=== PATIENT | female | born 1950 | race African-American/Black ===

== ENCOUNTER 2018-11-02 10:18 | Inpatient (IN) | payer OTHER ==
[2018-11-02 10:42] VITALS: BMI 30.5
--- NOTE | 2018-11-02 13:51 | HP ---
CIWA Score Nausea/Vomitin-No Nausea/No Vomiting Muscle Tremors: 2 Anxiety: 3 Agitation: 2 Paroxysmal Sweats: 2 Orientation: 0-Oriented Tacttile Disturbances: 1-Very Mild Itch/Numbness Auditory Disturbances: 2-Mild Harshness/Frighten Visual Disturbances: 0-None Headache: 0-None Present CIWA-Ar Total Score: 12 - Admission Criteria [facility] Guidelines: Admission for Medically Managed Detox: Requires at least one of the followin. CIWA greater than 12 2. Seizures within the past 24 hours 3. Delirium tremens within the past 24 hours 4. Hallucinations within the past 24 hours 5. Acute intervention needed for co occurring medical disorder 6. Acute intervention needed for co occurring psychiatric disorder 7. Severe withdrawal that cannot be handled at a lower level of care (continued vomiting, continued diarrhea, abnormal vital signs) requiring intravenous medication and/or fluids 8. Patient presents the following: CIWA greater than 12 Admission Criteria Met: Admission criteria met Admission ROS [facility] Chief Complaint: alcohol detox Allergies/Adverse Reactions: Allergies Allergy/AdvReac Type Severity Reaction Status Date / Time tomato Allergy Severe Rash Verified 11/02/18 13:11 No Known Drug Allergies Allergy Verified 11/02/18 13:11 TOMATO SAUCE Allergy Severe Hives Uncoded 11/02/18 13:11 History of Present Illness: 68 yo female with hx of chronic alcohol and cocaine dependence is here seeking detox. Last detox [facility] 10/03/18 10/06/18 and rehab left AMA 10/06/18 -10/09/18, reports relapsed soon after discharge. Denies hx of seizures or blackouts. PMHX: HDL, DM II, Hep C and Asthma. Psych: depression Denies suicidal / homicidal ideation or hx of suicide attempt Exam Limitations: No Limitations - Ebola screening Have you traveled outside of the country in the last 21 days: No Have you had contact with anyone from an Ebola affected area: No Have you been sick,other than usual withdrawal symptoms: No Do you have a fever: No - Review of Systems Constitutional: Night Sweats, Weakness, Unintentional Wgt. Loss (5 lb) EENT: reports: Ear Pain (right ear x one month) Respiratory: reports: No Symptoms reported Cardiac: reports: No Symptoms Reported GI: reports: Poor Appetite, Poor Fluid Intake, Indigestion : reports: Urgency Musculoskeletal: reports: Back Pain Integumentary: reports: No Symptoms Reported Neuro: reports: No Symptoms reported Endocrine: reports: Increased Urine Hematology: reports: See HPI Psychiatric: reports: Orientated x3, Anxious Other Systems: Reviewed and Negative Patient History - Patient Medical History Hx Anemia: Yes Hx Asthma: Yes Hx Chronic Obstructive Pulmonary Disease (COPD): No Hx Cancer: No Hx Cardiac Disorders: No Hx Congestive Heart Failure: No Hx Hypertension: No Hx Hypercholesterolemia: Yes Hx Pacemaker: No HX Cerebrovascular Accident: No Hx Seizures: No Hx Dementia: No Hx Diabetes: No Hx Gastrointestinal Disorders: Yes (acid reflux) Hx Liver Disease: Yes (Hep C ) Hx Genitourinary Disorders: No Hx Sexually Transmitted Disorders: No Hx Renal Disease (ESRD): No Hx Thyroid Disease: No Hx Human Immunodeficiency Virus (HIV): Yes Hx Hepatitis C: Yes (TX'ED) Hx Depression: Yes Hx Suicide Attempt: No Hx Bipolar Disorder: No Hx Schizophrenia: No - Patient Surgical History Past Surgical History: Yes Hx Neurologic Surgery: No Hx Cataract Extraction: No Hx Cardiac Surgery: No Hx Lung Surgery: No Hx Breast Surgery: No Hx Breast Biopsy: No Hx Abdominal Surgery: No Hx Appendectomy: No Hx Cholecystectomy: No Hx Genitourinary Surgery: No Hx Section: No Hx Orthopedic Surgery: Yes (Sx on right ankle fx) Anesthesia Reaction: No - PPD History Previous Implant?: Yes Documented Results: Negative w/proof Implanted On Prior [facility] Admission?: Yes Date: 09/01/18 Results: 0 mm - Reproductive History Patient : No - Smoking Cessation Smoking history: Never smoked Have you smoked in the past 12 months: No Hx Chewing Tobacco Use: No - Substance & Tx. History Hx Alcohol Use: Yes Hx Substance Use: Yes Substance Use Type: Alcohol Hx Substance Use Treatment: Yes ( Last detox [facility] 10/03/18 10/06/18 and rehab left AMA 10/06/18 -10/09/18) - Substances Abused Alcohol Route: Oral Frequency: Daily Amount used: fifth vodka Age of first use: 15 Date of Last Use: 11/02/18 Cocaine Route: Inhalation Frequency: 1-2 times per week Amount used: $25 Age of first use: 26 Date of Last Use: 10/28/18 Family Disease History - Family Disease History Family Disease History: Diabetes: Father ( ), Mother ( ) Admission Physical Exam [facility] - Vital Signs Vital Signs: Vital Signs - 24 hr 11/02/18 10:40 Temperature 98.0 F Pulse Rate 76 Respiratory 18 Rate Blood Pressure 113/73 - Physical General Appearance: Yes: Disheveled, Obese, Anxious HEENTM: Yes: EOMI, Hearing grossly Normal, Normal ENT Inspection, Normocephalic , Normal Voice, SASHA, Pharynx Normal, Tm's normal Respiratory: Yes: Chest Non-Tender, Lungs Clear, Normal Breath Sounds, No Respiratory Distress, No Accessory Muscle Use Neck: Yes: Within Normal Limits Breast: Yes: Breast Exam Deferred Cardiology: Yes: Regular Rhythm, Regular Rate Abdominal: Yes: Normal Bowel Sounds, Non Tender, Flat, Soft Genitourinary: Yes: Within Normal Limits Back: Yes: Normal Inspection Musculoskeletal: Yes: full range of Motion, Gait Steady, Pelvis Stable Extremities: Yes: Normal Capillary Refill, Normal Inspection, Normal Range of Motion 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: Yes: mule operator II-XII NML intact, Fully Oriented, Alert, Motor Strength 5/5, Depressed Affect Integumentary: Yes: Normal Color, Warm, Diaphoresis Lymphatic: Yes: Within Normal Limits - Diagnostic (1) Alcohol dependence with withdrawal Current Visit: Yes Status: Acute Qualifiers: Complication of substance-induced condition: uncomplicated Qualified Code(s ): F10.230 - Alcohol dependence with withdrawal, uncomplicated (2) Asthma Current Visit: Yes Status: Chronic Qualifiers: Asthma severity: mild Asthma persistence: intermittent Asthma complication type: uncomplicated Qualified Code(s): J45.20 - Mild intermittent asthma, uncomplicated (3) GERD (gastroesophageal reflux disease) Current Visit: Yes Status: Chronic Qualifiers: Esophagitis presence: without esophagitis Qualified Code(s): K21.9 - Gastro -esophageal reflux disease without esophagitis (4) HIV (human immunodeficiency virus infection) Current Visit: Yes Status: Chronic Comment: non compliant with HIV medication (5) Hepatitis C Current Visit: Yes Status: Chronic Qualifiers: Viral hepatitis chronicity: chronic Hepatic coma status: without hepatic coma Qualified Code(s): B18.2 - Chronic viral hepatitis C (6) History of prediabetes Current Visit: Yes Status: Chronic (7) Hypertension Current Visit: Yes Status: Chronic Qualifiers: Hypertension type: essential hypertension Qualified Code(s): I10 - Essential (primary) hypertension (8) Obese Current Visit: Yes Status: Chronic Qualifiers: Obesity classification: adult class 1 (BMI 30 - 34.9) Body mass index: BMI 31.0-31.9 Cleared for Admission [facility] - Detox or Rehab [facility] Level of Care: Medically Managed Detox Regimen/Protocol: Librium [facility] Breath Alcohol Content Breath Alcohol Content: 0.036 Urine Pregancy Test - Result Urine Test Results: Negative - NO line present Urine Drug Screen - Results Drug Screen Negative: No Urine Drug Screen Results: JUNE-Cocaine, BZO-Benzodiazepines Inpatient Rehab Admission - Rehab Decision to Admit Inpatient rehab admission?: No
[2018-11-02] MEDS ORDERED: MENTHOL/PHENOL 1 EACH UD MM PRN (14:00)
[2018-11-02] MEDS ORDERED: IBUPROFEN 400 MG TABLET (FP) PO PRN (14:00)
[2018-11-02] MEDS ORDERED: METHOCARBAMOL 500 MG TABLET PO PRN (14:00)
[2018-11-02] MEDS ORDERED: BISMUTH SUBSALICYLATE 262 MG/15 ML BTL PO PRN (14:00)
[2018-11-02] MEDS ORDERED: ACETAMINOPHEN 325 MG TABLET (FP) PO PRN ×2 (14:00)
[2018-11-02] MEDS ORDERED: hydrOXYzine PAMOATE 25 MG CAPSULE (FP) PO PRN (14:00)
[2018-11-02] MEDS ORDERED: MAGNESIUM HYDROX 2400MG/30ML ORAL SUSPENSION 30 ML CUP PO PRN (14:00)
[2018-11-02] MEDS ORDERED: MAGNESIUM CITRATE 300 ML BOTTLE PO PRN (14:00)
[2018-11-02] MEDS ORDERED: ALBUTEROL SO4 8 GM HFA INHALER IH PRN (14:02)
[2018-11-02] MEDS: chlordiazePOXIDE HCL 25 MG CAPSULE PO PRN (16:38)
[2018-11-02] MEDS: IBUPROFEN 400 MG TABLET (FP) PO PRN (16:38)
[2018-11-02] MEDS: chlordiazePOXIDE HCL 25 MG CAPSULE PO SCH (23:30)
[2018-11-02] MEDS: THIAMINE HCL 100 MG TABLET (FP) PO SCH (23:30)
[2018-11-02 23:47] LABS: EPI CELLS 3.6 /HPF (0-5); HYALINE CASTS 1 /hpf (0-8); URINE APPEARANCE CLEAR; URINE BACTERIA 151.578 /hpf (NEGATIVE); URINE BILIRUBIN NEGATIVE (<2.0 mg/dL); URINE COLOR YELLOW; URINE GLUCOSE (UA) NEGATIVE (NEGATIVE); URINE KETONE NEGATIVE (NEGATIVE); URINE LEUK ESTERASE 1+ (NEGATIVE); URINE NITRITE NEGATIVE (NEGATIVE); URINE PROTEIN NEGATIVE (NEGATIVE); URINE RBC 1 /hpf (0-4); URINE UROBILINOGEN 0.2 mg/dL (0.2-1.0); URINE WBC 1 /hpf (0-5)
[2018-11-03] MEDS: chlordiazePOXIDE HCL 25 MG CAPSULE PO PRN (00:10)
[2018-11-03] MEDS: chlordiazePOXIDE HCL 25 MG CAPSULE PO SCH ×4 (06:00→22:22)
[2018-11-03] MEDS: IBUPROFEN 400 MG TABLET (FP) PO PRN ×2 (06:19→16:07)
[2018-11-03] MEDS: MAG HYDROX/AL HYDROX/SIMETH 30 ML UNIT-DOSE CUP PO PRN ×2 (09:31→16:07)
[2018-11-03] MEDS ORDERED: SULFAMETHOXAZOLE/TRIMETHOPRIM 800MG/160MG D.S. TABLET PO SCH (10:00)
[2018-11-03] MEDS: PANTOPRAZOLE 20 MG TABLET (FP) PO SCH (10:04)
[2018-11-03] MEDS: ASPIRIN 81 MG CHEWABLE TABLETS PO SCH (10:04)
[2018-11-03] MEDS: PRENATAL VITAMINS W/ FOLIC ACID TABLET (FP) PO SCH (10:04)
[2018-11-03 11:30] LABS: HEMATOCRIT 41.2 % (32.4-45.2); HEMOGLOBIN 14.1 GM/dL (10.7-15.3); MCH 34.1 pg (25.7-33.7); MCHC 34.3 g/dl (32.0-36.0); MEAN CELL VOLUME 99.3 fl (80-96); MEAN PLT VOLUME 9.5 fl (7.5-11.1); PLATELET COUNT 200 K/MM3 (134-434); RBC 4.15 M/mm3 (3.60-5.2); RDW 13.5 % (11.6-15.6); WHITE BLOOD COUNT 3.6 K/mm3 (4.0-10.0)
[2018-11-03 11:51] LABS: ALBUMIN 3.8 g/dl (3.4-5.0); ALK PHOS 94 U/L (45-117); ANION GAP 13 MMOL/L (8-16); BILIRUBIN,TOTAL 0.3 mg/dL (0.2-1); BLOOD UREA NITROGEN 14 mg/dL (7-18); CALCIUM 9.8 mg/dL (8.5-10.1); CHLORIDE 105 mmol/L (98-107); CO2 21 mmol/L (21-32); GLUCOSE,RANDOM 75 mg/dL (74-106); POTASSIUM 4.4 mmol/L (3.5-5.1); SGOT/AST 18 U/L (15-37); SGPT/ALT 14 U/L (13-61); SODIUM 139 mmol/L (136-145); TOT PROT 8.1 g/dl (6.4-8.2)
--- NOTE | 2018-11-03 12:21 | PN ---
[facility] CIWA - CIWA Score Nausea/Vomitin-No Nausea/No Vomiting Muscle Tremors: 1-None Visible, but [place] Anxiety: 1-Mildly Anxious Agitation: 1-Slight > Activity Paroxysmal Sweats: No Perspiration Orientation: 0-Oriented Tacttile Disturbances: 0-None Auditory Disturbances: 0-None Visual Disturbances: 0-None Headache: 2-Mild CIWA-Ar Total Score: 5 S Progress Note (SOAP) Subjective: pt states doing well with detox protocol. c/o R ear pain- says she was here last month and received a ear drop that helped her- did not f/u with PCP as an outpt. Says she has PCP at [facility]. HAs HIV but has not been in care for several months O: Vital Signs - 24 hr 11/02/18 11/02/18 11/02/18 15:16 17:57 21:30 Temperature 98.8 F 98.2 F 98.1 F Pulse Rate 138 H 129 H 110 H Respiratory 18 18 18 Rate Blood Pressure 119/89 96/73 109/74 11/03/18 11/03/18 11/03/18 03:30 06:36 09:46 Temperature 97.2 F L 97.7 F Pulse Rate 70 82 Respiratory 18 18 18 Rate Blood Pressure 101/54 L 79/50 L Laboratory Tests 11/02/18 11/03/18 11/03/18 22:00 06:00 06:00 WBC 3.6 L RBC 4.15 Hgb 14.1 Hct 41.2 MCV 99.3 H MCH 34.1 H MCHC 34.3 RDW 13.5 Plt Count 200 D MPV 9.5 Sodium 139 Potassium 4.4 Chloride 105 Carbon Dioxide 21 Anion Gap 13 BUN 14 Creatinine 1.0 Creat Clearance w eGFR 55.30 Random Glucose 75 Calcium 9.8 Total Bilirubin 0.3 AST 18 ALT 14 Alkaline Phosphatase 94 Total Protein 8.1 Albumin 3.8 Urine Color Yellow Urine Appearance Clear Urine pH 7.0 Ur Specific [place] 1.021 Urine Protein Negative Urine Glucose (UA) Negative Urine Ketones Negative Urine Blood Negative Urine Nitrite Negative Urine Bilirubin Negative Urine Urobilinogen 0.2 Ur Leukocyte Esterase 1+ Urine WBC (Auto) 1 Urine RBC (Auto) 1 Urine Casts (Auto) 1 U Epithel Cells (Auto) 3.6 Urine Bacteria (Auto) 151.578 RPR Titer 11/03/18 06:00 WBC RBC Hgb Hct MCV MCH MCHC RDW Plt Count MPV Sodium Potassium Chloride Carbon Dioxide Anion Gap BUN Creatinine Creat Clearance w eGFR Random Glucose Calcium Total Bilirubin AST ALT Alkaline Phosphatase Total Protein Albumin Urine Color Urine Appearance Urine pH Ur Specific [place] Urine Protein Urine Glucose (UA) Urine Ketones Urine Blood Urine Nitrite Urine Bilirubin Urine Urobilinogen Ur Leukocyte Esterase Urine WBC (Auto) Urine RBC (Auto) Urine Casts (Auto) U Epithel Cells (Auto) Urine Bacteria (Auto) RPR Titer Nonreactive R ear- TM not visualized, no drainage, no d/c, cerumen noted- no pain to tragal manipulation a/p continue detox protocol pt requesting ear drops- for ear discomfort f/u PCP for HIV treatment- d/w pt at length re this
--- NOTE | 2018-11-03 12:55 | CONSULT ---
[facility] Psychiatric Consult - Data Date of interview: 11/03/18 Admission source: [facility] Identifying data: Readmission to [facility] for this 68 y/o AA female self- referred for detoxification (alcohol). Interviewed on . Patient is , a mother of seven, domiciled, unemployed and supported on [employer] funds. Substance Abuse History: Confirmed by the patient in this interview. Details in current [facility] report : Smoking history: Never smoked. Have you smoked in the past 12 months: No. Hx Chewing Tobacco Use: No. Substance & Tx. History. Hx Alcohol Use: Yes. Hx Substance Use: Yes. Substance Use Type: Alcohol. Hx Substance Use Treatment: Yes ( Last detox [facility] 10/03/18 10/06/18 and rehab left [facility] 10/06/18 -10/09/18). - Substances Abused. Alcohol. Route: Oral. Frequency: Daily. Amount used: fifth vodka. Age of first use: 15. Date of Last Use: 11/02/18. Cocaine. Route: Inhalation. Frequency: 1-2 times per week. Amount used: $25. Age of first use: 26. Date of Last Use: 10/28/18 Medical History: HIV infection since 1993 (non compliant with ART medications), hepatitis C, bronchial asthma, GERD, diabetes mellitus, dyslipidemia, arthritis , anemia and history of fracture of left wrist (2016). Psychiatric History: In this interview, the patient denies history of psychiatric hospitalizations. She reports, though, that she was diagnosed with MDD, years ago, during incarceration. Used to be prescribed prozac + abilify. Chronically non-adherent to medications + [facility]PD care. No affiliation with mental health care providers. Contact with Psychiatry, in 2005, was triggered by the of one of her daughters (age 12). Ms Evans denies history of suicide attempts. Physical/Sexual Abuse/Trauma History: Patient denies. Additional Comment: Urine Drug Screen Results: JUNE-Cocaine, BZO- Benzodiazepines. Noted. Mental Status Exam - Mental Status Exam Alert and Oriented to: Time, Place, Person Cognitive Function: Good Patient Appearance: Well Groomed (overweight) Mood: Withdrawn, Apprehensive (mildly) Affect: Mood Congruent, Constricted Patient Behavior: Fatigued, Appropriate, Cooperative Speech Pattern: Clear, Appropriate Voice Loudness: Normal Thought Process: Goal Oriented Thought Disorder: Not Present Hallucinations: Denies (denies hallucinations at this time ; however, she reports diaz she hears the voices of evil spirits sometimes, at home, during alcohol intoxication ) Suicidal Ideation: Denies Homicidal Ideation: Denies Insight/Judgement: Poor Sleep: Poorly, Difficulty falling asleep Appetite: Good Muscle strength/Tone: Normal Gait/Station: Normal Psychiatric Findings - Problem List ([place] 1, 2,3) (1) Alcohol dependence with withdrawal Current Visit: Yes Status: Acute Qualifiers: Complication of substance-induced condition: uncomplicated Qualified Code(s ): F10.230 - Alcohol dependence with withdrawal, uncomplicated (2) Cocaine abuse Current Visit: Yes Status: Chronic (3) Substance induced mood disorder Current Visit: Yes Status: Chronic (4) History of depression Current Visit: Yes Status: Chronic (5) Insomnia Current Visit: Yes Status: Chronic - Initial Treatment Plan Initial Treatment Plan: Psychoeducation. Sleep hygiene. Detoxification. Insomnia is addressed with melatonin at bedtime. Relapse prevention : discussed with the patient. Willing to enlist in rehabilitation. Encouraged in that endeavor. Support. Motivational sessions. Observation.
[2018-11-03] MEDS: CARBAMIDE PEROXIDE 6.5% OTIC 15 ML BOTTLE AD PRN (13:41)
[2018-11-03] MEDS: MELATONIN 5 MG TABLETS PO PRN (22:22)
[2018-11-03] MEDS: THIAMINE HCL 100 MG TABLET (FP) PO SCH (22:22)
[2018-11-04] MEDS: chlordiazePOXIDE HCL 25 MG CAPSULE PO SCH ×3 (05:53→17:46)
--- NOTE | 2018-11-04 10:05 | PN ---
[facility] CIWA - CIWA Score Nausea/Vomitin-No Nausea/No Vomiting Muscle Tremors: 2 Anxiety: 2 Agitation: 2 Paroxysmal Sweats: 2 Orientation: 0-Oriented Tacttile Disturbances: 1-Very Mild Itch/Numbness Auditory Disturbances: 0-None Visual Disturbances: 0-None Headache: 0-None Present CIWA-Ar Total Score: 9 S Progress Note (SOAP) Subjective: c/o of back pain, interrupted sleep, chills Objective: 11/04/18 12:51 Vital Signs Temperature 97.2 F L 11/04/18 09:47 Pulse Rate 77 11/04/18 09:47 Respiratory Rate 18 11/04/18 09:47 Blood Pressure 93/59 L 11/04/18 09:47 O2 Sat by Pulse Oximetry (%) Laboratory Last Values WBC 3.6 K/mm3 (4.0-10.0) L 11/03/18 06:00 RBC 4.15 M/mm3 (3.60-5.2) 11/03/18 06:00 Hgb 14.1 GM/dL (10.7-15.3) 11/03/18 06:00 Hct 41.2 % (32.4-45.2) 11/03/18 06:00 MCV 99.3 fl (80-96) H 11/03/18 06:00 MCH 34.1 pg (25.7-33.7) H 11/03/18 06:00 MCHC 34.3 g/dl (32.0-36.0) 11/03/18 06:00 RDW 13.5 % (11.6-15.6) 11/03/18 06:00 Plt Count 200 K/MM3 (134-434) D 11/03/18 06:00 MPV 9.5 fl (7.5-11.1) 11/03/18 06:00 Sodium 139 mmol/L (136-145) 11/03/18 06:00 Potassium 4.4 mmol/L (3.5-5.1) 11/03/18 06:00 Chloride 105 mmol/L (98-107) 11/03/18 06:00 Carbon Dioxide 21 mmol/L (21-32) 11/03/18 06:00 Anion Gap 13 MMOL/L (8-16) 11/03/18 06:00 BUN 14 mg/dL (7-18) 11/03/18 06:00 Creatinine 1.0 mg/dL (0.55-1.3) 11/03/18 06:00 Creat Clearance w eGFR 55.30 (>60) 11/03/18 06:00 Random Glucose 75 mg/dL (74-106) 11/03/18 06:00 Calcium 9.8 mg/dL (8.5-10.1) 11/03/18 06:00 Total Bilirubin 0.3 mg/dL (0.2-1) 11/03/18 06:00 AST 18 U/L (15-37) 11/03/18 06:00 ALT 14 U/L (13-61) 11/03/18 06:00 Alkaline Phosphatase 94 U/L (45-117) 11/03/18 06:00 Total Protein 8.1 g/dl (6.4-8.2) 11/03/18 06:00 Albumin 3.8 g/dl (3.4-5.0) 11/03/18 06:00 Urine Color Yellow 11/02/18 22:00 Urine Appearance Clear 11/02/18 22:00 Urine pH 7.0 (5.0-8.0) 11/02/18 22:00 Ur Specific [place] 1.021 (1.010-1.035) 11/02/18 22:00 Urine Protein Negative (NEGATIVE) 11/02/18 22:00 Urine Glucose (UA) Negative (NEGATIVE) 11/02/18 22:00 Urine Ketones Negative (NEGATIVE) 11/02/18 22:00 Urine Blood Negative (NEGATIVE) 11/02/18 22:00 Urine Nitrite Negative (NEGATIVE) 11/02/18 22:00 Urine Bilirubin Negative (<2.0 mg/dL) 11/02/18 22:00 Urine Urobilinogen 0.2 mg/dL (0.2-1.0) 11/02/18 22:00 Ur Leukocyte Esterase 1+ (NEGATIVE) 11/02/18 22:00 Urine WBC (Auto) 1 /hpf (0-5) 11/02/18 22:00 Urine RBC (Auto) 1 /hpf (0-4) 11/02/18 22:00 Urine Casts (Auto) 1 /hpf (0-8) 11/02/18 22:00 U Epithel Cells (Auto) 3.6 /HPF (0-5) 11/02/18 22:00 Urine Bacteria (Auto) 151.578 /hpf (NEGATIVE) 11/02/18 22:00 RPR Titer Nonreactive (NONREACTIVE) 11/03/18 06:00 labs noted Aox3 no distress full ROM + back pain withdrawal sx continue detox increase po fluids continue to monitor
[2018-11-04] MEDS: ASPIRIN 81 MG CHEWABLE TABLETS PO SCH (10:38)
[2018-11-04] MEDS: PANTOPRAZOLE 20 MG TABLET (FP) PO SCH (10:38)
[2018-11-04] MEDS: PRENATAL VITAMINS W/ FOLIC ACID TABLET (FP) PO SCH (10:38)
[2018-11-04] MEDS: CARBAMIDE PEROXIDE 6.5% OTIC 15 ML BOTTLE AD PRN ×2 (10:39→22:25)
[2018-11-04] MEDS: MAG HYDROX/AL HYDROX/SIMETH 30 ML UNIT-DOSE CUP PO PRN (17:47)
[2018-11-04] MEDS: MELATONIN 5 MG TABLETS PO PRN (22:24)
[2018-11-04] MEDS: chlordiazePOXIDE HCL 10 MG CAPSULE PO SCH (22:24)
[2018-11-04] MEDS: THIAMINE HCL 100 MG TABLET (FP) PO SCH (22:24)
[2018-11-04] MEDS ORDERED: chlordiazePOXIDE HCL 10 MG CAPSULE PO PRN (23:00)
[2018-11-05] MEDS: IBUPROFEN 400 MG TABLET (FP) PO PRN (01:25)
[2018-11-05] MEDS: chlordiazePOXIDE HCL 10 MG CAPSULE PO SCH ×3 (05:34→17:10)
[2018-11-05] MEDS: CARBAMIDE PEROXIDE 6.5% OTIC 15 ML BOTTLE AD PRN (10:07)
[2018-11-05] MEDS: ASPIRIN 81 MG CHEWABLE TABLETS PO SCH (10:07)
[2018-11-05] MEDS: PANTOPRAZOLE 20 MG TABLET (FP) PO SCH (10:07)
[2018-11-05] MEDS: PRENATAL VITAMINS W/ FOLIC ACID TABLET (FP) PO SCH (10:08)
--- NOTE | 2018-11-05 12:10 | PN ---
[facility] CIWA - CIWA Score Nausea/Vomitin-No Nausea/No Vomiting Muscle Tremors: 1-None Visible, but [place] Anxiety: 0-No Anxiety, at Ease Agitation: 1-Slight > Activity Paroxysmal Sweats: No Perspiration Orientation: 1-Uncertain about Date Tacttile Disturbances: 0-None Auditory Disturbances: 0-None Visual Disturbances: 0-None Headache: 1-Very Mild CIWA-Ar Total Score: 4 S Progress Note (SOAP) Subjective: feeling better more energy up to day room social with peers tolerate food and fluid well Objective: 11/05/18 12:09 Vital Signs Temperature 98.1 F 11/05/18 09:31 Pulse Rate 67 11/05/18 11:25 Respiratory Rate 18 11/05/18 09:31 Blood Pressure 97/71 11/05/18 11:25 O2 Sat by Pulse Oximetry (%) Laboratory Last Values WBC 3.6 K/mm3 (4.0-10.0) L 11/03/18 06:00 RBC 4.15 M/mm3 (3.60-5.2) 11/03/18 06:00 Hgb 14.1 GM/dL (10.7-15.3) 11/03/18 06:00 Hct 41.2 % (32.4-45.2) 11/03/18 06:00 MCV 99.3 fl (80-96) H 11/03/18 06:00 MCH 34.1 pg (25.7-33.7) H 11/03/18 06:00 MCHC 34.3 g/dl (32.0-36.0) 11/03/18 06:00 RDW 13.5 % (11.6-15.6) 11/03/18 06:00 Plt Count 200 K/MM3 (134-434) D 11/03/18 06:00 MPV 9.5 fl (7.5-11.1) 11/03/18 06:00 Sodium 139 mmol/L (136-145) 11/03/18 06:00 Potassium 4.4 mmol/L (3.5-5.1) 11/03/18 06:00 Chloride 105 mmol/L (98-107) 11/03/18 06:00 Carbon Dioxide 21 mmol/L (21-32) 11/03/18 06:00 Anion Gap 13 MMOL/L (8-16) 11/03/18 06:00 BUN 14 mg/dL (7-18) 11/03/18 06:00 Creatinine 1.0 mg/dL (0.55-1.3) 11/03/18 06:00 Creat Clearance w eGFR 55.30 (>60) 11/03/18 06:00 Random Glucose 75 mg/dL (74-106) 11/03/18 06:00 Calcium 9.8 mg/dL (8.5-10.1) 11/03/18 06:00 Total Bilirubin 0.3 mg/dL (0.2-1) 11/03/18 06:00 AST 18 U/L (15-37) 11/03/18 06:00 ALT 14 U/L (13-61) 11/03/18 06:00 Alkaline Phosphatase 94 U/L (45-117) 11/03/18 06:00 Total Protein 8.1 g/dl (6.4-8.2) 11/03/18 06:00 Albumin 3.8 g/dl (3.4-5.0) 11/03/18 06:00 Urine Color Yellow 11/02/18 22:00 Urine Appearance Clear 11/02/18 22:00 Urine pH 7.0 (5.0-8.0) 11/02/18 22:00 Ur Specific [place] 1.021 (1.010-1.035) 11/02/18 22:00 Urine Protein Negative (NEGATIVE) 11/02/18 22:00 Urine Glucose (UA) Negative (NEGATIVE) 11/02/18 22:00 Urine Ketones Negative (NEGATIVE) 11/02/18 22:00 Urine Blood Negative (NEGATIVE) 11/02/18 22:00 Urine Nitrite Negative (NEGATIVE) 11/02/18 22:00 Urine Bilirubin Negative (<2.0 mg/dL) 11/02/18 22:00 Urine Urobilinogen 0.2 mg/dL (0.2-1.0) 11/02/18 22:00 Ur Leukocyte Esterase 1+ (NEGATIVE) 11/02/18 22:00 Urine WBC (Auto) 1 /hpf (0-5) 11/02/18 22:00 Urine RBC (Auto) 1 /hpf (0-4) 11/02/18 22:00 Urine Casts (Auto) 1 /hpf (0-8) 11/02/18 22:00 U Epithel Cells (Auto) 3.6 /HPF (0-5) 11/02/18 22:00 Urine Bacteria (Auto) 151.578 /hpf (NEGATIVE) 11/02/18 22:00 RPR Titer Nonreactive (NONREACTIVE) 11/03/18 06:00 lab noted Assessment: 11/05/18 12:09 withdrawal sx hiv Plan: continue detox preferring return to infection disease specialist for medical and mental issues
[2018-11-05] MEDS: MELATONIN 5 MG TABLETS PO PRN (21:58)
[2018-11-05] MEDS: THIAMINE HCL 100 MG TABLET (FP) PO SCH (21:58)
[2018-11-05] MEDS ORDERED: chlordiazePOXIDE HCL 10 MG CAPSULE PO SCH (23:00)
[2018-11-06 06:13] VITALS: TEMP 97.4
[2018-11-06 07:27] VITALS: BP 99/69; PULSE 70
--- NOTE | 2018-11-06 08:44 | DS ---
[facility] Detox Discharge Summary Admission Date: 11/02/18 Discharge Date: 11/06/18 - History Present History: Alcohol Dependence Additional Comments: 68 years old female admitted on 11/02/18 for alcohol withdrawal stabilization completed detox regimen aftercare patient preferring return to infectious disease specialist for medical and mental issues - Physical Exam Results Vital Signs: Vital Signs Temperature 97.4 F L 11/06/18 06:12 Pulse Rate 70 11/06/18 07:26 Respiratory Rate 18 11/06/18 07:26 Blood Pressure 99/69 11/06/18 07:26 O2 Sat by Pulse Oximetry (%) Pertinent Admission Physical Exam Findings: alcohol withdrawal sx Laboratory Last Values WBC 3.6 K/mm3 (4.0-10.0) L 11/03/18 06:00 RBC 4.15 M/mm3 (3.60-5.2) 11/03/18 06:00 Hgb 14.1 GM/dL (10.7-15.3) 11/03/18 06:00 Hct 41.2 % (32.4-45.2) 11/03/18 06:00 MCV 99.3 fl (80-96) H 11/03/18 06:00 MCH 34.1 pg (25.7-33.7) H 11/03/18 06:00 MCHC 34.3 g/dl (32.0-36.0) 11/03/18 06:00 RDW 13.5 % (11.6-15.6) 11/03/18 06:00 Plt Count 200 K/MM3 (134-434) D 11/03/18 06:00 MPV 9.5 fl (7.5-11.1) 11/03/18 06:00 Sodium 139 mmol/L (136-145) 11/03/18 06:00 Potassium 4.4 mmol/L (3.5-5.1) 11/03/18 06:00 Chloride 105 mmol/L (98-107) 11/03/18 06:00 Carbon Dioxide 21 mmol/L (21-32) 11/03/18 06:00 Anion Gap 13 MMOL/L (8-16) 11/03/18 06:00 BUN 14 mg/dL (7-18) 11/03/18 06:00 Creatinine 1.0 mg/dL (0.55-1.3) 11/03/18 06:00 Creat Clearance w eGFR 55.30 (>60) 11/03/18 06:00 Random Glucose 75 mg/dL (74-106) 11/03/18 06:00 Calcium 9.8 mg/dL (8.5-10.1) 11/03/18 06:00 Total Bilirubin 0.3 mg/dL (0.2-1) 11/03/18 06:00 AST 18 U/L (15-37) 11/03/18 06:00 ALT 14 U/L (13-61) 11/03/18 06:00 Alkaline Phosphatase 94 U/L (45-117) 11/03/18 06:00 Total Protein 8.1 g/dl (6.4-8.2) 11/03/18 06:00 Albumin 3.8 g/dl (3.4-5.0) 11/03/18 06:00 Urine Color Yellow 11/02/18 22:00 Urine Appearance Clear 11/02/18 22:00 Urine pH 7.0 (5.0-8.0) 11/02/18 22:00 Ur Specific Clayton 1.021 (1.010-1.035) 11/02/18 22:00 Urine Protein Negative (NEGATIVE) 11/02/18 22:00 Urine Glucose (UA) Negative (NEGATIVE) 11/02/18 22:00 Urine Ketones Negative (NEGATIVE) 11/02/18 22:00 Urine Blood Negative (NEGATIVE) 11/02/18 22:00 Urine Nitrite Negative (NEGATIVE) 11/02/18 22:00 Urine Bilirubin Negative (<2.0 mg/dL) 11/02/18 22:00 Urine Urobilinogen 0.2 mg/dL (0.2-1.0) 11/02/18 22:00 Ur Leukocyte Esterase 1+ (NEGATIVE) 11/02/18 22:00 Urine WBC (Auto) 1 /hpf (0-5) 11/02/18 22:00 Urine RBC (Auto) 1 /hpf (0-4) 11/02/18 22:00 Urine Casts (Auto) 1 /hpf (0-8) 11/02/18 22:00 U Epithel Cells (Auto) 3.6 /HPF (0-5) 11/02/18 22:00 Urine Bacteria (Auto) 151.578 /hpf (NEGATIVE) 11/02/18 22:00 RPR Titer Nonreactive (NONREACTIVE) 11/03/18 06:00 lab noted - Treatment Hospital Course: Detox Protocol Followed, Detoxed Safely, Responded well, Discharged Condition Good, Rehab Referral Accepted Patient has Accepted a Rehab Referral to: infectious disease specialist - Medication Discharge Medications: Ambulatory Orders Aripiprazole [Abilify -] 5 mg PO DAILY 01/03/13 Fluoxetine HCl [Prozac -] 20 mg PO DAILY #30 capsule 08/20/15 Ritonavir [Norvir] 100 mg PO DAILY #30 capsule 03/28/16 Aspirin [ASA -] 81 mg PO DAILY #30 tab.chew 07/24/16 Atazanavir [Reyataz -] 300 mg PO DAILY@0800 10/03/18 Emtricitabine/Tenofovir [Truvada -] 1 tab PO DAILY 10/03/18 Esomeprazole Magnesium [Nexium 24Hr] 1 tab PO DAILY 10/03/18 Sulfamethoxazole/Trimethoprim [Bactrim DS -] 1 each PO ASDIR 11/02/18 Albuterol Sulfate Inhaler - [Ventolin HFA Inhaler -] 2 inh IH Q4H PRN #1 inhaler 11/05/18 - Diagnosis (1) Alcohol dependence with withdrawal Status: Acute Qualifiers: Complication of substance-induced condition: uncomplicated Qualified Code(s ): F10.230 - Alcohol dependence with withdrawal, uncomplicated (2) Substance induced mood disorder Status: Suspected (3) Asthma Status: Chronic (4) GERD (gastroesophageal reflux disease) Status: Chronic Qualifiers: Esophagitis presence: without esophagitis Qualified Code(s): K21.9 - Gastro -esophageal reflux disease without esophagitis (5) HIV (human immunodeficiency virus infection) Status: Chronic Qualifiers: HIV symptom status: asymptomatic Qualified Code(s): Z21 - Asymptomatic human immunodeficiency virus [HIV] infection status (6) HLD (hyperlipidemia) Status: Chronic Qualifiers: Hyperlipidemia type: unspecified Qualified Code(s): E78.5 - Hyperlipidemia , unspecified (7) Hepatitis C Status: Chronic Qualifiers: Viral hepatitis chronicity: chronic Hepatic coma status: without hepatic coma Qualified Code(s): B18.2 - Chronic viral hepatitis C (8) Hypertension Status: Chronic Qualifiers: Hypertension type: essential hypertension Qualified Code(s): I10 - Essential (primary) hypertension (9) Obese Status: Chronic Qualifiers: Obesity classification: adult class 1 (BMI 30 - 34.9) Body mass index: BMI 31.0-31.9 (10) Substance induced mood disorder Status: Suspected (11) Walker as ambulation aid Status: Chronic - AMA Did Patient Leave Against Medical Advice: No
[2018-11-06] MEDS: IBUPROFEN 400 MG TABLET (FP) PO PRN (08:45)
== END 2018-11-06 09:57 | disposition home or self-care (01) | DRG 774 ==
LOC: YASAS 10:18 → MERGE 10:18 → Y3N 14:22
PROVIDERS: ADMIT Surgery; ATTEND Surgery
PROC: HZ2ZZZZ Detoxification Services for Substance Abuse Treatment (ICD-10-PCS; principal; 2018-11-02)
DX: F10.230 Alcohol dependence with withdrawal, uncomplicated (principal); F14.10 Cocaine abuse, uncomplicated; F32.9 Major depressive disorder, single episode, unspecified; Z21 Asymptomatic human immunodeficiency virus [HIV] infection status; I10 Essential (primary) hypertension; E78.5 Hyperlipidemia, unspecified; K21.9 Gastro-esophageal reflux disease without esophagitis; B18.2 Chronic viral hepatitis C; G47.00 Insomnia, unspecified; J45.909 Unspecified asthma, uncomplicated; E66.09 Other obesity due to excess calories; Z68.30 Body mass index [BMI] 30.0-30.9, adult; R26.89 Other abnormalities of gait and mobility; Z99.89 Dependence on other enabling machines and devices
CPT/HCPCS: 36415; 80053; 81003; 85027; 86593

== ENCOUNTER 2018-11-28 14:03 | Inpatient (IN) | payer OTHER ==
[2018-11-28 18:23] VITALS: BMI 31.6
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
[2018-11-28] MEDS ORDERED: ALBUTEROL SO4 8 GM HFA INHALER IH PRN (19:51)
[2018-11-28] MEDS ORDERED: ACETAMINOPHEN 325 MG TABLET (FP) PO PRN (19:53)
[2018-11-28] MEDS ORDERED: hydrOXYzine PAMOATE 25 MG CAPSULE (FP) PO PRN (19:53)
[2018-11-28] MEDS ORDERED: chlordiazePOXIDE HCL 10 MG CAPSULE PO PRN (19:53)
[2018-11-28] MEDS ORDERED: BISMUTH SUBSALICYLATE 524 MG/30 ML UD PO PRN (19:53)
[2018-11-28] MEDS ORDERED: MENTHOL/PHENOL 1 EACH UD MM PRN (19:53)
[2018-11-28] MEDS ORDERED: MAGNESIUM HYDROX 2400MG/30ML ORAL SUSPENSION 30 ML CUP PO PRN (19:53)
[2018-11-28] MEDS ORDERED: MAG HYDROX/AL HYDROX/SIMETH 30 ML UNIT-DOSE CUP PO PRN (19:53)
[2018-11-28] MEDS ORDERED: MAGNESIUM CITRATE 300 ML BOTTLE PO PRN (19:53)
[2018-11-28] MEDS ORDERED: IBUPROFEN 400 MG TABLET (FP) PO PRN (19:53)
[2018-11-28] MEDS: chlordiazePOXIDE HCL 25 MG CAPSULE PO SCH (22:25)
[2018-11-28] MEDS: MELATONIN 5 MG TABLETS PO PRN (22:26)
[2018-11-28] MEDS: THIAMINE HCL 100 MG TABLET (FP) PO SCH (22:26)
[2018-11-29] MEDS: chlordiazePOXIDE HCL 25 MG CAPSULE PO SCH ×2 (05:35→12:13)
--- NOTE | 2018-11-29 08:47 | PN ---
[facility] CIWA - CIWA Score Nausea/Vomitin-Mild Nausea/No Vomiting Muscle Tremors: 3 Anxiety: 3 Agitation: 2 Paroxysmal Sweats: 1-Minimal Palms Moist Orientation: 3-Disoriented Date>2 days Tacttile Disturbances: 0-None Auditory Disturbances: 0-None Visual Disturbances: 0-None Headache: 0-None Present CIWA-Ar Total Score: 13 [facility] Progress Note (SOAP) Subjective: feeling restlessness stomach cramping right ear discomfort tenderness on tragal pressure, erythema and edematous in cannel, white yellow sebaceous debbris ofloxin otc 10 drops to right ear x 7 days Objective: 11/29/18 08:53 Vital Signs Temperature 98.1 F 11/29/18 06:24 Pulse Rate 69 11/29/18 06:24 Respiratory Rate 18 11/29/18 06:30 Blood Pressure 100/51 L 11/29/18 06:24 O2 Sat by Pulse Oximetry (%) lab pending Assessment: 11/29/18 08:54 alcohol withdrawal sx 11/29/18 08:54 hiv gerd asthma right ear external otitis Plan: continue detox ofloxin otc
[2018-11-29] MEDS ORDERED: chlordiazePOXIDE HCL 25 MG CAPSULE PO ONE (10:00)
[2018-11-29] MEDS: SULFAMETHOXAZOLE/TRIMETHOPRIM 800MG/160MG D.S. TABLET PO SCH (10:26)
[2018-11-29] MEDS: RANITIDINE HCL 150 MG TABLET (FP) PO SCH ×2 (10:26→22:55)
[2018-11-29] MEDS: PRENATAL VITAMINS W/ FOLIC ACID TABLET (FP) PO SCH (10:26)
[2018-11-29] MEDS: OFLOXACIN 0.3% OTIC SOLUTION 5 ML BOTTLE AD SCH (12:13)
--- NOTE | 2018-11-29 13:23 | CONSULT ---
[facility] Psychiatric Consult - Data Date of interview: 11/29/18 Admission source: [facility] Identifying data: Approached for psychiatric evaluation. Patient refuses.
[2018-11-29] MEDS: METHOCARBAMOL 500 MG TABLET PO PRN ×2 (13:26→22:57)
[2018-11-29] MEDS: chlordiazePOXIDE 5 MG CAPSULE PO SCH (22:55)
[2018-11-29] MEDS: THIAMINE HCL 100 MG TABLET (FP) PO SCH (22:55)
[2018-11-29] MEDS: MELATONIN 5 MG TABLETS PO PRN (22:57)
[2018-11-30] MEDS: chlordiazePOXIDE 5 MG CAPSULE PO SCH ×2 (06:04→14:45)
[2018-11-30] MEDS ORDERED: chlordiazePOXIDE HCL 25 MG CAPSULE PO ONE (10:00)
[2018-11-30] MEDS: RANITIDINE HCL 150 MG TABLET (FP) PO SCH ×2 (10:52→22:04)
[2018-11-30] MEDS: OFLOXACIN 0.3% OTIC SOLUTION 5 ML BOTTLE AD SCH (10:52)
[2018-11-30] MEDS: PRENATAL VITAMINS W/ FOLIC ACID TABLET (FP) PO SCH (10:53)
[2018-11-30] MEDS: METHOCARBAMOL 500 MG TABLET PO PRN ×2 (10:54→22:09)
[2018-11-30 10:58] LABS: HEMATOCRIT 39.3 % (32.4-45.2); HEMOGLOBIN 13.5 GM/dL (10.7-15.3); MCH 33.8 pg (25.7-33.7); MCHC 34.5 g/dl (32.0-36.0); MEAN CELL VOLUME 98.1 fl (80-96); MEAN PLT VOLUME 8.8 fl (7.5-11.1); PLATELET COUNT 156 K/MM3 (134-434); RBC 4.01 M/mm3 (3.60-5.2); RDW 13.4 % (11.6-15.6)
[2018-11-30 12:15] LABS: ALBUMIN 3.1 g/dl (3.4-5.0); ALK PHOS 94 U/L (45-117); ANION GAP 4 MMOL/L (8-16); BILIRUBIN,TOTAL 0.3 mg/dL (0.2-1); BLOOD UREA NITROGEN 12 mg/dL (7-18); CALCIUM 8.9 mg/dL (8.5-10.1); CHLORIDE 104 mmol/L (98-107); CO2 28 mmol/L (21-32); GLUCOSE,RANDOM 82 mg/dL (74-106); SGOT/AST 17 U/L (15-37); SGPT/ALT 13 U/L (13-61); SODIUM 136 mmol/L (136-145); TOT PROT 7.1 g/dl (6.4-8.2)
--- NOTE | 2018-11-30 12:56 | PN ---
S CIWA - CIWA Score Nausea/Vomitin-Mild Nausea/No Vomiting Muscle Tremors: 3 Anxiety: 2 Agitation: 2 Paroxysmal Sweats: 1-Minimal Palms Moist Orientation: 3-Disoriented Date>2 days Tacttile Disturbances: 0-None Auditory Disturbances: 0-None Visual Disturbances: 0-None Headache: 1-Very Mild CIWA-Ar Total Score: 13 [facility] Progress Note (SOAP) Subjective: tremor trouble sleep at night poor concentration Objective: 11/30/18 12:58 Vital Signs Temperature 98.8 F 11/30/18 09:50 Pulse Rate 85 11/30/18 09:50 Respiratory Rate 18 11/30/18 09:50 Blood Pressure 90/64 11/30/18 09:50 O2 Sat by Pulse Oximetry (%) Laboratory Last Values WBC 3.0 K/mm3 (4.0-10.0) L 11/30/18 07:00 RBC 4.01 M/mm3 (3.60-5.2) 11/30/18 07:00 Hgb 13.5 GM/dL (10.7-15.3) 11/30/18 07:00 Hct 39.3 % (32.4-45.2) 11/30/18 07:00 MCV 98.1 fl (80-96) H 11/30/18 07:00 MCH 33.8 pg (25.7-33.7) H 11/30/18 07:00 MCHC 34.5 g/dl (32.0-36.0) 11/30/18 07:00 RDW 13.4 % (11.6-15.6) 11/30/18 07:00 Plt Count 156 K/MM3 (134-434) D 11/30/18 07:00 MPV 8.8 fl (7.5-11.1) 11/30/18 07:00 Sodium 136 mmol/L (136-145) 11/30/18 07:00 Potassium 4.0 mmol/L (3.5-5.1) 11/30/18 07:00 Chloride 104 mmol/L (98-107) 11/30/18 07:00 Carbon Dioxide 28 mmol/L (21-32) 11/30/18 07:00 Anion Gap 4 MMOL/L (8-16) L 11/30/18 07:00 BUN 12 mg/dL (7-18) 11/30/18 07:00 Creatinine 1.0 mg/dL (0.55-1.3) 11/30/18 07:00 Creat Clearance w eGFR 55.30 (>60) 11/30/18 07:00 Random Glucose 82 mg/dL (74-106) 11/30/18 07:00 Calcium 8.9 mg/dL (8.5-10.1) 11/30/18 07:00 Total Bilirubin 0.3 mg/dL (0.2-1) 11/30/18 07:00 AST 17 U/L (15-37) 11/30/18 07:00 ALT 13 U/L (13-61) 11/30/18 07:00 Alkaline Phosphatase 94 U/L (45-117) 11/30/18 07:00 Total Protein 7.1 g/dl (6.4-8.2) 11/30/18 07:00 Albumin 3.1 g/dl (3.4-5.0) L 11/30/18 07:00 RPR Titer Nonreactive (NONREACTIVE) 11/30/18 07:00 lab noted Assessment: 11/30/18 12:59 withdrawal sx additional 25 mg given at 10 am Plan: continue detox
[2018-11-30] MEDS: ACETAMINOPHEN 325 MG TABLET (FP) PO PRN (17:52)
[2018-11-30] MEDS ORDERED: chlordiazePOXIDE HCL 10 MG CAPSULE PO PRN (21:00)
[2018-11-30] MEDS: THIAMINE HCL 100 MG TABLET (FP) PO SCH (22:04)
[2018-11-30] MEDS: chlordiazePOXIDE HCL 10 MG CAPSULE PO SCH (22:04)
[2018-11-30] MEDS: MELATONIN 5 MG TABLETS PO PRN (22:05)
[2018-12-01] MEDS: ACETAMINOPHEN 325 MG TABLET (FP) PO PRN (05:51)
[2018-12-01] MEDS: chlordiazePOXIDE HCL 10 MG CAPSULE PO SCH (05:51)
[2018-12-01 09:32] VITALS: BP 84/60; PULSE 82; TEMP 98.2
[2018-12-01] MEDS: RANITIDINE HCL 150 MG TABLET (FP) PO SCH (11:01)
[2018-12-01] MEDS: PRENATAL VITAMINS W/ FOLIC ACID TABLET (FP) PO SCH (11:01)
[2018-12-01] MEDS: SULFAMETHOXAZOLE/TRIMETHOPRIM 800MG/160MG D.S. TABLET PO SCH (11:01)
[2018-12-01] MEDS: OFLOXACIN 0.3% OTIC SOLUTION 5 ML BOTTLE AD SCH (11:02)
[2018-12-01] MEDS: METHOCARBAMOL 500 MG TABLET PO PRN (11:07)
== END 2018-12-01 12:16 | disposition other institution (70) | DRG 775 ==
LOC: YASAS 14:03 → Y3N 20:10
PROVIDERS: ADMIT Surgery; ATTEND Surgery
PROC: HZ2ZZZZ Detoxification Services for Substance Abuse Treatment (ICD-10-PCS; principal; 2018-11-28)
DX: F10.230 Alcohol dependence with withdrawal, uncomplicated (principal); D64.9 Anemia, unspecified; Z21 Asymptomatic human immunodeficiency virus [HIV] infection status; K21.9 Gastro-esophageal reflux disease without esophagitis; J45.909 Unspecified asthma, uncomplicated; H60.91 Unspecified otitis externa, right ear; B18.2 Chronic viral hepatitis C; M19.90 Unspecified osteoarthritis, unspecified site; E66.9 Obesity, unspecified; Z68.31 Body mass index [BMI] 31.0-31.9, adult
CPT/HCPCS: 36415; 80053; 85027; 86593

== ENCOUNTER 2018-12-01 12:26 | Inpatient (IN) | payer OTHER ==
[2018-12-01] MEDS ORDERED: MAGNESIUM HYDROX 2400MG/30ML ORAL SUSPENSION 30 ML CUP PO PRN (13:19)
[2018-12-01] MEDS ORDERED: MENTHOL/PHENOL 1 EACH UD MM PRN (13:19)
[2018-12-01] MEDS ORDERED: guaiFENesin 200 MG/10 ML 10 ML UNIT-DOSE CUPS PO PRN (13:19)
[2018-12-01] MEDS ORDERED: P-EPHED 60MG/TRIPROLIDI 2.5MG TABLET PO PRN (13:19)
[2018-12-01] MEDS ORDERED: MAGNESIUM CITRATE 300 ML BOTTLE PO PRN (13:19)
[2018-12-01] MEDS ORDERED: hydrOXYzine PAMOATE 25 MG CAPSULE (FP) PO PRN (13:19)
[2018-12-01] MEDS ORDERED: LOPERAMIDE HCL 2 MG CAPSULE PO PRN (13:19)
--- NOTE | 2018-12-01 13:19 | HP ---
[facility] Rehab Assess/Revision - Admission History Admitted to Rehab from: [facility] [employer] - Vital signs Vital Signs: Vital Signs Period Temp Pulse Resp BP Sys/Schumacher Pulse Ox Last 24 Hr 97.9 F 106 18 89/67 - Findings Detox History & Physical reviewed: Yes Concur with findings: Yes Inpatient Rehab Admission - Rehab Decision to Admit Inpatient rehab admission?: Yes - Initial Determination Are CD services needed?: Yes Free of communicable disease: Yes Not in need of hospitalization: Yes - Rehab Admission Criteria Previous failed treatment: Yes Poor recovery environment: Yes Comorbidities: Yes Lacks judgement: Yes Patient is meeting Inpatient Rehab admission criteria:: Yes (h/o HIV)
[2018-12-01] MEDS ORDERED: ALBUTEROL SO4 8 GM HFA INHALER IH PRN (13:20)
[2018-12-01] MEDS: IBUPROFEN 400 MG TABLET (FP) PO PRN ×2 (14:07→22:11)
[2018-12-01] MEDS: ACETAMINOPHEN 325 MG TABLET (FP) PO PRN (18:50)
[2018-12-01] MEDS: MELATONIN 5 MG TABLETS PO PRN (22:12)
[2018-12-01] MEDS: MAG HYDROX/AL HYDROX/SIMETH 30 ML UNIT-DOSE CUP PO PRN (22:13)
[2018-12-01] MEDS: THIAMINE HCL 100 MG TABLET (FP) PO SCH (22:59)
[2018-12-02] MEDS: IBUPROFEN 400 MG TABLET (FP) PO PRN ×2 (06:53→16:57)
[2018-12-02] MEDS ORDERED: PT OWN MED DRAWER 7, Y5N ONE ×2 (08:07→15:11)
[2018-12-02] MEDS: PRENATAL VITAMINS W/ FOLIC ACID TABLET (FP) PO SCH (09:09)
[2018-12-02] MEDS: ACETAMINOPHEN 325 MG TABLET (FP) PO PRN (09:10)
[2018-12-02] MEDS ORDERED: OFLOXACIN 0.3% OTIC SOLUTION 5 ML BOTTLE AS SCH (10:00)
--- NOTE | 2018-12-02 10:32 | PN ---
[facility] Progress Note Note: Patient is currently receiving floxin otic 2 drops which she claims was started on 11/28, 10 drops for 10 days. She is requesting same dose prior to admission, change made . For otitis externa, 10 drops is the recommended dosage for patients 14 and ^
[2018-12-02] MEDS ORDERED: METHOCARBAMOL 500 MG TABLET PO ONE (15:05)
--- NOTE | 2018-12-02 15:08 | PN ---
S Progress Note Note: Patient reports use of Robaxin 500mg while in the community, same ordered as per patient's request
[2018-12-02] MEDS: THIAMINE HCL 100 MG TABLET (FP) PO SCH (21:32)
[2018-12-02] MEDS: METHOCARBAMOL 500 MG TABLET PO SCH (21:32)
[2018-12-02] MEDS: MELATONIN 5 MG TABLETS PO PRN (21:32)
[2018-12-03] MEDS: IBUPROFEN 400 MG TABLET (FP) PO PRN ×3 (06:10→18:50)
[2018-12-03] MEDS ORDERED: PT OWN MED DRAWER 7, Y5N ONE (08:32)
[2018-12-03] MEDS: METHOCARBAMOL 500 MG TABLET PO SCH ×2 (09:07→21:28)
[2018-12-03] MEDS: PRENATAL VITAMINS W/ FOLIC ACID TABLET (FP) PO SCH (09:07)
[2018-12-03] MEDS: OFLOXACIN 0.3% OTIC SOLUTION 5 ML BOTTLE AS SCH (09:08)
[2018-12-03] MEDS: ACETAMINOPHEN 325 MG TABLET (FP) PO PRN (14:56)
[2018-12-03] MEDS: MAG HYDROX/AL HYDROX/SIMETH 30 ML UNIT-DOSE CUP PO PRN (17:32)
[2018-12-03] MEDS: MELATONIN 5 MG TABLETS PO PRN (21:28)
[2018-12-03] MEDS: THIAMINE HCL 100 MG TABLET (FP) PO SCH (21:28)
[2018-12-04] MEDS: IBUPROFEN 400 MG TABLET (FP) PO PRN (03:20)
[2018-12-04 06:43] VITALS: BP 125/82; PULSE 110; TEMP 98.1
[2018-12-04] MEDS: OFLOXACIN 0.3% OTIC SOLUTION 5 ML BOTTLE AS SCH (09:55)
[2018-12-04] MEDS: METHOCARBAMOL 500 MG TABLET PO SCH (09:55)
[2018-12-04] MEDS: PRENATAL VITAMINS W/ FOLIC ACID TABLET (FP) PO SCH (09:55)
[2018-12-04] MEDS ORDERED: SULFAMETHOXAZOLE/TRIMETHOPRIM 800MG/160MG D.S. TABLET PO SCH (10:00)
--- NOTE | 2018-12-04 17:12 | PN ---
[facility] Progress Note Note: PT WAS ADMITTED TO REHAB ON 12/01/18 FROM DETOX AND EXPRESSES DESIRE TO LEAVE TODAY. ALL EFFORTS TO ENCOURAGE PATIENT TO STAY IN TREATMENT WAS UNSUCCESSFUL. PT WAS SEEN BY HER COUNSELOR NICOL GUPTA AND WAS REFERRED TO [facility] CD AFTERCARE. PT REPORTS HE HAS A PMD, DR. KEYES AT [place], [place] AND HAS AN APPOINTMENT TO SEE HIM AT 9A.M ON . PT IS ALERT O X 3. DENIES S/H/I. PT APPEARS TO BE NOT IN COMPLIANT WITH HIS ANTIRETROVIRAL MEDS AND WILL FOLLOW UP WITH PCP FOR RE-EVALUATION. Home Medications Medication Instructions Recorded Aripiprazole [Abilify -] 5 mg PO DAILY 01/03/13 Fluoxetine HCl [Prozac -] 20 mg PO DAILY #30 capsule 08/20/15 Ritonavir [Norvir] 100 mg PO DAILY #30 capsule 03/28/16 Aspirin [ASA -] 81 mg PO DAILY #30 tab.chew 07/24/16 Atazanavir [Reyataz -] 300 mg PO DAILY@0800 10/03/18 Emtricitabine/Tenofovir [Truvada -] 1 tab PO DAILY 10/03/18 Esomeprazole Magnesium [Nexium 1 tab PO DAILY 10/03/18 24Hr] Sulfamethoxazole/Trimethoprim 1 each PO ASDIR 11/02/18 [Bactrim DS -] Albuterol Sulfate Inhaler - 2 inh IH Q4H PRN #1 inhaler 11/05/18 [Ventolin HFA Inhaler -] Ofloxacin Otic [Floxin Otic (Ear) 10 drop OT DAILY 12/01/18 Solution -] Methocarbamol [Robaxin -] 500 mg PO BID 12/02/18 Vital Signs (72 hours) 12/02/18 12/02/18 12/02/18 00:30 03:30 07:20 Temperature 97.7 F Pulse Rate 82 Respiratory 18 18 18 Rate Blood Pressure 111/75 12/02/18 12/03/18 12/03/18 09:00 00:30 03:30 Temperature Pulse Rate 80 Respiratory 16 18 18 Rate Blood Pressure 110/70 12/03/18 12/04/18 07:02 06:42 Temperature 98.3 F 98.1 F Pulse Rate 100 H 110 H Respiratory 18 18 Rate Blood Pressure 126/89 125/82 NAD PLAN:PT SIGNED OUT AMA FOLLOW UP WITH CD AFTERCARE RECOMMENDED BY YOUR COUNSELOR. FOLLOW UP WITH PCP PLANNED ON 12/05/18 AT 9:00 A.M.
== END 2018-12-04 09:56 | disposition left against medical advice (07) | DRG 770 ==
LOC: YASAS 12:26 → Y3E 12:27
PROVIDERS: ADMIT Neuromusculoskeletal Medicine & OMM; ATTEND Neuromusculoskeletal Medicine & OMM
PROC: HZ42ZZZ Group Counseling for Substance Abuse Treatment, Cognitive-Behavioral (ICD-10-PCS; principal; 2018-12-01)
DX: F10.20 Alcohol dependence, uncomplicated (principal); F16.20 Hallucinogen dependence, uncomplicated; Z21 Asymptomatic human immunodeficiency virus [HIV] infection status; I10 Essential (primary) hypertension; D64.9 Anemia, unspecified; J45.909 Unspecified asthma, uncomplicated; B18.2 Chronic viral hepatitis C; K08.9 Disorder of teeth and supporting structures, unspecified

== ENCOUNTER 2019-02-26 12:36 | Inpatient (IN) | payer OTHER ==
[2019-02-26 17:05] VITALS: BMI 31.1
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
[2019-02-26] MEDS ORDERED: MAGNESIUM CITRATE 300 ML BOTTLE PO PRN (19:07)
[2019-02-26] MEDS ORDERED: IBUPROFEN 400 MG TABLET (FP) PO PRN (19:07)
[2019-02-26] MEDS ORDERED: chlordiazePOXIDE HCL 25 MG CAPSULE PO PRN (19:07)
[2019-02-26] MEDS ORDERED: hydrOXYzine PAMOATE 25 MG CAPSULE (FP) PO PRN (19:07)
[2019-02-26] MEDS ORDERED: BISMUTH SUBSALICYLATE 524 MG/30 ML UD PO PRN (19:07)
[2019-02-26] MEDS ORDERED: MENTHOL/PHENOL 1 EACH UD MM PRN (19:07)
[2019-02-26] MEDS ORDERED: MAGNESIUM HYDROX 2400MG/30ML ORAL SUSPENSION 30 ML CUP PO PRN (19:07)
[2019-02-26] MEDS ORDERED: ACETAMINOPHEN 325 MG TABLET (FP) PO PRN ×2 (19:07)
[2019-02-26] MEDS ORDERED: ALBUTEROL SO4 8 GM HFA INHALER IH PRN (19:10)
[2019-02-26] MEDS ORDERED: SULFAMETHOXAZOLE/TRIMETHOPRIM 800MG/160MG D.S. TABLET PO SCH (19:15)
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
[2019-02-26] MEDS: chlordiazePOXIDE HCL 25 MG CAPSULE PO SCH (22:41)
[2019-02-26] MEDS: THIAMINE HCL 100 MG TABLET (FP) PO SCH (22:41)
[2019-02-26] MEDS: METHOCARBAMOL 500 MG TABLET PO PRN (22:42)
[2019-02-26] MEDS: MELATONIN 5 MG TABLETS PO PRN (22:42)
[2019-02-27] MEDS: chlordiazePOXIDE HCL 25 MG CAPSULE PO SCH ×4 (06:08→22:56)
[2019-02-27] MEDS: ASPIRIN 81 MG CHEWABLE TABLETS PO SCH (10:34)
[2019-02-27] MEDS: SULFAMETHOXAZOLE/TRIMETHOPRIM 800MG/160MG D.S. TABLET PO SCH (10:34)
[2019-02-27] MEDS: PANTOPRAZOLE 20 MG TABLET (FP) PO SCH (10:34)
[2019-02-27] MEDS: ATAZANAVIR SO4 300 MG CAPSULE PO SCH (10:35)
[2019-02-27] MEDS: PRENATAL VITAMINS W/ FOLIC ACID TABLET (FP) PO SCH (10:35)
[2019-02-27] MEDS: RITONAVIR 100 MG TABLET PO SCH (10:36)
[2019-02-27] MEDS: EMTRICITABINE 200MG/TENOFOVIR 300MG PO SCH (10:36)
[2019-02-27] MEDS: MAG HYDROX/AL HYDROX/SIMETH 30 ML UNIT-DOSE CUP PO PRN ×2 (10:38→17:50)
--- NOTE | 2019-02-27 13:45 | PN ---
S CIWA - CIWA Score Nausea/Vomitin-Mild Nausea/No Vomiting Muscle Tremors: 3 Anxiety: 3 Agitation: 3 Paroxysmal Sweats: 2 Orientation: 0-Oriented Tacttile Disturbances: 0-None Auditory Disturbances: 0-None Visual Disturbances: 0-None Headache: 0-None Present CIWA-Ar Total Score: 12 [facility] Progress Note (SOAP) Subjective: sweats anxiety mild shakes tired interrupted sleep Objective: 02/27/19 13:41 Vital Signs Temperature 97.9 F 02/27/19 09:50 Pulse Rate 102 H 02/27/19 09:50 Respiratory Rate 18 02/27/19 09:50 Blood Pressure 106/70 02/27/19 09:50 O2 Sat by Pulse Oximetry (%) Laboratory Tests 02/26/19 17:27 POC Urine HCG, Qual Negative rest of labs pending aaox3 ambulating no acute distress Assessment: 02/27/19 13:43 withdrawals sx Plan: continue detox increase fluids
[2019-02-27] MEDS: MELATONIN 5 MG TABLETS PO PRN (22:56)
[2019-02-27] MEDS: THIAMINE HCL 100 MG TABLET (FP) PO SCH (22:56)
[2019-02-27] MEDS: METHOCARBAMOL 500 MG TABLET PO PRN (22:57)
[2019-02-28] MEDS: chlordiazePOXIDE HCL 25 MG CAPSULE PO SCH ×4 (06:56→22:25)
[2019-02-28 09:43] LABS: HEMOGLOBIN 12.6 GM/dL (10.7-15.3); MCH 31.5 pg (25.7-33.7); MCHC 34.1 g/dl (32.0-36.0); MEAN CELL VOLUME 92.2 fl (80-96); MEAN PLT VOLUME 8.3 fl (7.5-11.1); PLATELET COUNT 141 K/MM3 (134-434); RBC 4.01 M/mm3 (3.60-5.2)
[2019-02-28 10:13] LABS: ALBUMIN 3.2 g/dl (3.4-5.0); BLOOD UREA NITROGEN 13.8 mg/dL (7-18); CALCIUM 9.1 mg/dL (8.5-10.1); POTASSIUM 4.7 mmol/L (3.5-5.1); TOT PROT 7.2 g/dl (6.4-8.2)
[2019-02-28] MEDS: ATAZANAVIR SO4 300 MG CAPSULE PO SCH (11:01)
[2019-02-28] MEDS: PRENATAL VITAMINS W/ FOLIC ACID TABLET (FP) PO SCH (11:02)
[2019-02-28] MEDS: SULFAMETHOXAZOLE/TRIMETHOPRIM 800MG/160MG D.S. TABLET PO SCH (11:02)
[2019-02-28] MEDS: RITONAVIR 100 MG TABLET PO SCH (11:02)
[2019-02-28] MEDS: EMTRICITABINE 200MG/TENOFOVIR 300MG PO SCH (11:02)
[2019-02-28] MEDS: ASPIRIN 81 MG CHEWABLE TABLETS PO SCH (11:02)
[2019-02-28] MEDS: PANTOPRAZOLE 20 MG TABLET (FP) PO SCH (11:02)
--- NOTE | 2019-02-28 13:07 | PN ---
S CIWA - CIWA Score Nausea/Vomitin-No Nausea/No Vomiting Muscle Tremors: 3 Anxiety: 2 Agitation: 2 Paroxysmal Sweats: 2 Orientation: 0-Oriented Tacttile Disturbances: 0-None Auditory Disturbances: 0-None Visual Disturbances: 0-None Headache: 0-None Present CIWA-Ar Total Score: 9 [facility] Progress Note (SOAP) Subjective: tired sleepy sweats interrupted sleep Objective: 02/28/19 13:06 Vital Signs Temperature 97.5 F L 02/28/19 07:52 Pulse Rate 104 H 02/28/19 07:52 Respiratory Rate 20 02/28/19 07:52 Blood Pressure 87/51 L 02/28/19 07:52 O2 Sat by Pulse Oximetry (%) Laboratory Tests 02/26/19 02/28/19 02/28/19 17:27 07:00 07:00 WBC 2.0 L RBC 4.01 Hgb 12.6 Hct 37.0 MCV 92.2 MCH 31.5 MCHC 34.1 RDW 15.0 D Plt Count 141 MPV 8.3 Sodium 132 L Potassium 4.7 Chloride 102 Carbon Dioxide 23 Anion Gap 7 L BUN 13.8 Creatinine 1.0 Est GFR (CKD-EPI)AfAm 67.51 Est GFR (CKD-EPI)NonAf 58.25 Random Glucose 96 Calcium 9.1 Total Bilirubin 1.0 AST 22 ALT 16 Alkaline Phosphatase 92 Total Protein 7.2 Albumin 3.2 L POC Urine HCG, Qual Negative RPR Titer 02/28/19 07:00 WBC RBC Hgb Hct MCV MCH MCHC RDW Plt Count MPV Sodium Potassium Chloride Carbon Dioxide Anion Gap BUN Creatinine Est GFR (CKD-EPI)AfAm Est GFR (CKD-EPI)NonAf Random Glucose Calcium Total Bilirubin AST ALT Alkaline Phosphatase Total Protein Albumin POC Urine HCG, Qual RPR Titer Nonreactive labs noted aaox3 ambulating no acute distress Assessment: 02/28/19 13:06 mild withdrawal sx Plan: continue detox increase fluids
[2019-02-28] MEDS: THIAMINE HCL 100 MG TABLET (FP) PO SCH (22:25)
[2019-02-28] MEDS: MELATONIN 5 MG TABLETS PO PRN (22:25)
[2019-03-01] MEDS ORDERED: chlordiazePOXIDE HCL 10 MG CAPSULE PO PRN
[2019-03-01] MEDS: chlordiazePOXIDE HCL 10 MG CAPSULE PO SCH ×4 (05:22→22:33)
[2019-03-01] MEDS: METHOCARBAMOL 500 MG TABLET PO PRN ×2 (05:25→22:33)
[2019-03-01] MEDS: PANTOPRAZOLE 20 MG TABLET (FP) PO SCH (10:27)
[2019-03-01] MEDS: ASPIRIN 81 MG CHEWABLE TABLETS PO SCH (10:27)
[2019-03-01] MEDS: RITONAVIR 100 MG TABLET PO SCH (10:27)
[2019-03-01] MEDS: EMTRICITABINE 200MG/TENOFOVIR 300MG PO SCH (10:27)
[2019-03-01] MEDS: PRENATAL VITAMINS W/ FOLIC ACID TABLET (FP) PO SCH (10:27)
[2019-03-01] MEDS: SULFAMETHOXAZOLE/TRIMETHOPRIM 800MG/160MG D.S. TABLET PO SCH (10:27)
[2019-03-01] MEDS: ATAZANAVIR SO4 300 MG CAPSULE PO SCH (10:27)
--- NOTE | 2019-03-01 11:26 | PN ---
S CIWA - CIWA Score Nausea/Vomitin-No Nausea/No Vomiting Muscle Tremors: 2 Anxiety: 2 Agitation: 2 Paroxysmal Sweats: 1-Minimal Palms Moist Orientation: 0-Oriented Tacttile Disturbances: 0-None Auditory Disturbances: 0-None Visual Disturbances: 0-None Headache: 0-None Present CIWA-Ar Total Score: 7 [facility] Progress Note (SOAP) Subjective: sleepy sweats interrupted sleep Objective: 03/01/19 11:26 Vital Signs Temperature 97.6 F 03/01/19 09:50 Pulse Rate 72 03/01/19 09:50 Respiratory Rate 18 03/01/19 09:50 Blood Pressure 92/51 L 03/01/19 09:50 O2 Sat by Pulse Oximetry (%) aaox3 ambulating no acute distress Assessment: 03/01/19 11:26 mild withdrawal sx Plan: continue detox increase fluids
--- NOTE | 2019-03-01 12:47 | CONSULT ---
[facility] Psychiatric Consult - Data Date of interview: 03/01/19 Admission source: Self-referred Identifying data: Ms Puentes is a 68 years old Black female, mothr of 7 children, unemployed receiving HASA, domiciled seeking detox treatment for alcohol, cocaine and phencyclidine Substance Abuse History: Reportedly using alcohol, cocaine and pcp. Refer to addiction counselor's summary for further information Medical History: According to entry fro Dr Santiago on 11/03/18, medical history is significant for HIV infection since 1993 (non compliant with ART medications) , hepatitis C, bronchial asthma, GERD, diabetes mellitus, dyslipidemia, arthritis, anemia and history of fracture of left wrist (2016). Psychiatric History: Patient approached at bedsile while asleep. Told radio news writer that she did not request to speak to psychiatrist and did not want or need to talk to one
[2019-03-01] MEDS: THIAMINE HCL 100 MG TABLET (FP) PO SCH (22:32)
[2019-03-02] MEDS ORDERED: chlordiazePOXIDE HCL 10 MG CAPSULE PO SCH (05:00)
[2019-03-02] MEDS: METHOCARBAMOL 500 MG TABLET PO PRN (05:40)
[2019-03-02 09:27] VITALS: BP 98/62; PULSE 86; TEMP 97.7
[2019-03-02] MEDS: ASPIRIN 81 MG CHEWABLE TABLETS PO SCH (10:28)
[2019-03-02] MEDS: SULFAMETHOXAZOLE/TRIMETHOPRIM 800MG/160MG D.S. TABLET PO SCH (10:29)
[2019-03-02] MEDS: EMTRICITABINE 200MG/TENOFOVIR 300MG PO SCH (10:29)
[2019-03-02] MEDS: PANTOPRAZOLE 20 MG TABLET (FP) PO SCH (10:29)
[2019-03-02] MEDS: RITONAVIR 100 MG TABLET PO SCH (10:29)
[2019-03-02] MEDS: ATAZANAVIR SO4 300 MG CAPSULE PO SCH (10:29)
[2019-03-02] MEDS: PRENATAL VITAMINS W/ FOLIC ACID TABLET (FP) PO SCH (10:29)
--- NOTE | 2019-03-02 11:19 | DS ---
[facility] Detox Discharge Summary Admission Date: 02/26/19 Discharge Date: 03/02/19 - History Present History: Alcohol Dependence, Cocaine Dependence - Physical Exam Results Vital Signs: Vital Signs Temperature 97.7 F 03/02/19 09:26 Pulse Rate 86 03/02/19 09:26 Respiratory Rate 18 03/02/19 09:26 Blood Pressure 98/62 03/02/19 09:26 O2 Sat by Pulse Oximetry (%) - Treatment Hospital Course: Detox Protocol Followed, Detoxed Safely, Responded well, Discharged Condition Good - Medication Discharge Medications: Ambulatory Orders Aripiprazole [Abilify -] 5 mg PO DAILY 01/03/13 Fluoxetine HCl [Prozac -] 20 mg PO DAILY #30 capsule 08/20/15 Ritonavir [Norvir] 100 mg PO DAILY #30 capsule 03/28/16 Aspirin [ASA -] 81 mg PO DAILY #30 tab.chew 07/24/16 Atazanavir [Reyataz -] 300 mg PO DAILY@0800 10/03/18 Emtricitabine/Tenofovir [Truvada -] 1 tab PO DAILY 10/03/18 Esomeprazole Magnesium [Nexium 24Hr] 1 tab PO DAILY 10/03/18 Albuterol Sulfate Inhaler - [Ventolin HFA Inhaler -] 2 inh IH Q4H PRN #1 inhaler 11/05/18 Methocarbamol [Robaxin -] 500 mg PO BID 12/02/18 Sulfamethoxazole/Trimethoprim [Sulfamethoxazole-Tmp Ds Tablet] 1 each PO DAILY 02/26/19
--- NOTE | 2019-03-02 11:22 | DS ---
[facility] Detox Discharge Summary Admission Date: 02/26/19 Discharge Date: 03/02/19 - History Present History: Alcohol Dependence, Cocaine Dependence, Pcp Dependence - Physical Exam Results Vital Signs: Vital Signs Temperature 97.7 F 03/02/19 09:26 Pulse Rate 86 03/02/19 09:26 Respiratory Rate 18 03/02/19 09:26 Blood Pressure 98/62 03/02/19 09:26 O2 Sat by Pulse Oximetry (%) - Treatment Hospital Course: Detox Protocol Followed, Detoxed Safely, Responded well, Discharged Condition Good, Rehab Referral Accepted Patient has Accepted a Rehab Referral to: [facility] - Medication Discharge Medications: Ambulatory Orders Aripiprazole [Abilify -] 5 mg PO DAILY 01/03/13 Fluoxetine HCl [Prozac -] 20 mg PO DAILY #30 capsule 08/20/15 Ritonavir [Norvir] 100 mg PO DAILY #30 capsule 03/28/16 Aspirin [ASA -] 81 mg PO DAILY #30 tab.chew 07/24/16 Atazanavir [Reyataz -] 300 mg PO DAILY@0800 10/03/18 Emtricitabine/Tenofovir [Truvada -] 1 tab PO DAILY 10/03/18 Esomeprazole Magnesium [Nexium 24Hr] 1 tab PO DAILY 10/03/18 Albuterol Sulfate Inhaler - [Ventolin HFA Inhaler -] 2 inh IH Q4H PRN #1 inhaler 11/05/18 Methocarbamol [Robaxin -] 500 mg PO BID 12/02/18 Sulfamethoxazole/Trimethoprim [Sulfamethoxazole-Tmp Ds Tablet] 1 each PO DAILY 02/26/19 - Diagnosis (1) Alcohol use disorder Current Visit: Yes Status: Chronic (2) Cocaine use disorder Current Visit: Yes Status: Chronic (3) PCP dependence Current Visit: No Status: Chronic (4) Asthma Current Visit: No Status: Chronic (5) Cocaine abuse Current Visit: No Status: Chronic (6) HIV (human immunodeficiency virus infection) Current Visit: No Status: Chronic Qualifiers: HIV symptom status: unspecified Qualified Code(s): B20 - Human immunodeficiency virus [HIV] disease - AMA Did Patient Leave Against Medical Advice: No
[2019-03-03] MEDS ORDERED: chlordiazePOXIDE HCL 10 MG CAPSULE PO ONE (05:00)
== END 2019-03-02 02:30 | disposition other institution (70) | DRG 774 ==
LOC: YASAS 12:36 → Y6N 19:25
PROVIDERS: ADMIT Surgery; ATTEND Surgery
PROC: HZ2ZZZZ Detoxification Services for Substance Abuse Treatment (ICD-10-PCS; principal; 2019-02-26)
DX: F10.230 Alcohol dependence with withdrawal, uncomplicated (principal); F14.10 Cocaine abuse, uncomplicated; F16.10 Hallucinogen abuse, uncomplicated; J45.909 Unspecified asthma, uncomplicated; Z21 Asymptomatic human immunodeficiency virus [HIV] infection status; K21.9 Gastro-esophageal reflux disease without esophagitis; E11.9 Type 2 diabetes mellitus without complications; E78.5 Hyperlipidemia, unspecified; B18.2 Chronic viral hepatitis C; Z91.14 Patient's other noncompliance with medication regimen
CPT/HCPCS: 36415; 80053; 81025; 85027; 86593

== ENCOUNTER 2019-03-02 14:41 | Inpatient (IN) | payer OTHER ==
[2019-03-02] MEDS ORDERED: guaiFENesin 200 MG/10 ML 10 ML UNIT-DOSE CUPS PO PRN (15:29)
[2019-03-02] MEDS ORDERED: ACETAMINOPHEN 325 MG TABLET (FP) PO PRN (15:29)
[2019-03-02] MEDS ORDERED: MENTHOL/PHENOL 1 EACH UD MM PRN (15:29)
[2019-03-02] MEDS ORDERED: LOPERAMIDE HCL 2 MG CAPSULE PO PRN (15:29)
[2019-03-02] MEDS ORDERED: P-EPHED 60MG/TRIPROLIDI 2.5MG TABLET PO PRN (15:29)
[2019-03-02] MEDS ORDERED: MAGNESIUM CITRATE 300 ML BOTTLE PO PRN (15:29)
[2019-03-02] MEDS ORDERED: MAGNESIUM HYDROX 2400MG/30ML ORAL SUSPENSION 30 ML CUP PO PRN (15:29)
[2019-03-02] MEDS ORDERED: hydrOXYzine PAMOATE 25 MG CAPSULE (FP) PO PRN (15:29)
[2019-03-02] MEDS ORDERED: ALBUTEROL SO4 8 GM HFA INHALER IH PRN (15:32)
[2019-03-02] MEDS: THIAMINE HCL 100 MG TABLET (FP) PO SCH (21:35)
[2019-03-02] MEDS: RANITIDINE HCL 150 MG TABLET (FP) PO SCH (21:35)
[2019-03-02] MEDS: METHOCARBAMOL 500 MG TABLET PO SCH (21:35)
[2019-03-02] MEDS: MELATONIN 5 MG TABLETS PO PRN (21:36)
[2019-03-02] MEDS: MAG HYDROX/AL HYDROX/SIMETH 30 ML UNIT-DOSE CUP PO PRN (21:46)
[2019-03-03] MEDS: IBUPROFEN 400 MG TABLET (FP) PO PRN (06:22)
[2019-03-03] MEDS: RITONAVIR 100 MG TABLET PO SCH (07:03)
[2019-03-03] MEDS: ATAZANAVIR SO4 300 MG CAPSULE PO SCH (07:03)
[2019-03-03] MEDS: EMTRICITABINE 200MG/TENOFOVIR 300MG PO SCH (07:03)
[2019-03-03] MEDS: METHOCARBAMOL 500 MG TABLET PO SCH ×2 (09:47→21:42)
[2019-03-03] MEDS: SULFAMETHOXAZOLE/TRIMETHOPRIM 800MG/160MG D.S. TABLET PO SCH (09:47)
[2019-03-03] MEDS: PRENATAL VITAMINS W/ FOLIC ACID TABLET (FP) PO SCH (09:47)
[2019-03-03] MEDS: RANITIDINE HCL 150 MG TABLET (FP) PO SCH ×2 (09:47→21:42)
[2019-03-03] MEDS: ASPIRIN 81 MG CHEWABLE TABLETS PO SCH (09:49)
[2019-03-03] MEDS ORDERED: PANTOPRAZOLE 40 MG TABLET (FP) PO SCH (10:00)
[2019-03-03] MEDS: MELATONIN 5 MG TABLETS PO PRN (21:41)
[2019-03-03] MEDS: THIAMINE HCL 100 MG TABLET (FP) PO SCH (21:42)
[2019-03-03] MEDS: MAG HYDROX/AL HYDROX/SIMETH 30 ML UNIT-DOSE CUP PO PRN (21:42)
[2019-03-04] MEDS: ATAZANAVIR SO4 300 MG CAPSULE PO SCH (07:03)
[2019-03-04] MEDS: RITONAVIR 100 MG TABLET PO SCH (07:03)
[2019-03-04] MEDS: EMTRICITABINE 200MG/TENOFOVIR 300MG PO SCH (07:03)
[2019-03-04] MEDS: ASPIRIN 81 MG CHEWABLE TABLETS PO SCH (09:49)
[2019-03-04] MEDS: SULFAMETHOXAZOLE/TRIMETHOPRIM 800MG/160MG D.S. TABLET PO SCH (09:49)
[2019-03-04] MEDS: PRENATAL VITAMINS W/ FOLIC ACID TABLET (FP) PO SCH (09:49)
[2019-03-04] MEDS: RANITIDINE HCL 150 MG TABLET (FP) PO SCH ×2 (09:49→21:43)
[2019-03-04] MEDS: METHOCARBAMOL 500 MG TABLET PO SCH ×2 (09:49→21:43)
[2019-03-04] MEDS: MAG HYDROX/AL HYDROX/SIMETH 30 ML UNIT-DOSE CUP PO PRN ×2 (17:42→22:49)
[2019-03-04] MEDS: MELATONIN 5 MG TABLETS PO PRN (21:43)
[2019-03-04] MEDS: THIAMINE HCL 100 MG TABLET (FP) PO SCH (21:43)
[2019-03-05] MEDS: RITONAVIR 100 MG TABLET PO SCH (07:04)
[2019-03-05] MEDS: ATAZANAVIR SO4 300 MG CAPSULE PO SCH (07:04)
[2019-03-05] MEDS: EMTRICITABINE 200MG/TENOFOVIR 300MG PO SCH (07:04)
[2019-03-05] MEDS: IBUPROFEN 400 MG TABLET (FP) PO PRN (07:58)
[2019-03-05] MEDS: ASPIRIN 81 MG CHEWABLE TABLETS PO SCH (09:53)
[2019-03-05] MEDS: RANITIDINE HCL 150 MG TABLET (FP) PO SCH ×2 (09:53→21:29)
[2019-03-05] MEDS: PRENATAL VITAMINS W/ FOLIC ACID TABLET (FP) PO SCH (09:53)
[2019-03-05] MEDS: SULFAMETHOXAZOLE/TRIMETHOPRIM 800MG/160MG D.S. TABLET PO SCH (09:53)
[2019-03-05] MEDS: METHOCARBAMOL 500 MG TABLET PO SCH ×2 (09:54→21:30)
[2019-03-05] MEDS: MAG HYDROX/AL HYDROX/SIMETH 30 ML UNIT-DOSE CUP PO PRN ×2 (10:09→21:29)
[2019-03-05] MEDS: MELATONIN 5 MG TABLETS PO PRN (21:29)
[2019-03-05] MEDS: THIAMINE HCL 100 MG TABLET (FP) PO SCH (21:29)
[2019-03-06] MEDS: MAG HYDROX/AL HYDROX/SIMETH 30 ML UNIT-DOSE CUP PO PRN (06:38)
[2019-03-06] MEDS: RITONAVIR 100 MG TABLET PO SCH (07:12)
[2019-03-06] MEDS: EMTRICITABINE 200MG/TENOFOVIR 300MG PO SCH (07:12)
[2019-03-06] MEDS: ATAZANAVIR SO4 300 MG CAPSULE PO SCH (07:12)
[2019-03-06 07:14] VITALS: BP 108/67; PULSE 97; TEMP 97.6
--- NOTE | 2019-03-06 10:07 | PN ---
[facility] Progress Note (SOAP) Subjective: Patient is leaving AMA. Hospital Course: Patient has been in rehab for 3 days. She has met with her counselor and been adherent to her medication regimen during her time in rehab. Objective: Physical" General: dressed appropriately, able to make needs known, answer questions Skin: clear, dry, color consistent throughout trunk and extremities Lungs: clear Heart: S1 S2 audible Abd: soft, non-tender, +BS MSK: Full weight bearing, gait steady Neuro: A+OX3, no neurological deficits noted, CN 2-12 intact 03/06/19 10:02 Vital Signs (72 hours) 03/04/19 03/04/19 03/05/19 03:30 06:55 00:30 Temperature 97.8 F Pulse Rate 108 H Respiratory 18 20 18 Rate Blood Pressure 88/67 L 03/05/19 03/05/19 03/05/19 03:30 07:05 09:30 Temperature 97.9 F Pulse Rate 68 79 Respiratory 18 18 18 Rate Blood Pressure 105/69 93/55 L 03/06/19 03/06/19 03/06/19 00:30 03:30 07:14 Temperature 97.6 F Pulse Rate 97 H Respiratory 18 18 20 Rate Blood Pressure 108/67 03/06/19 10:02 Assessment: Medically stable Discharge Dx: Asthma GERD HIV infection Hep C PCP dependence ETOH Dependence Cocaine Dependence 03/06/19 10:05 Plan: Continuity of care: Patient will go to [facility] in the [place] for aftercare and primary care. She receives HIV care and will return there for her prescription renewal. Patient picks up her medications pre-packaged at the clinic at [facility]. Patient expresses an intention to remain drug free.
[2019-03-06] MEDS: PRENATAL VITAMINS W/ FOLIC ACID TABLET (FP) PO SCH (10:09)
[2019-03-06] MEDS: METHOCARBAMOL 500 MG TABLET PO SCH (10:09)
[2019-03-06] MEDS: ASPIRIN 81 MG CHEWABLE TABLETS PO SCH (10:09)
[2019-03-06] MEDS: SULFAMETHOXAZOLE/TRIMETHOPRIM 800MG/160MG D.S. TABLET PO SCH (10:09)
[2019-03-06] MEDS: RANITIDINE HCL 150 MG TABLET (FP) PO SCH (10:09)
== END 2019-03-06 10:18 | disposition left against medical advice (07) | DRG 770 ==
LOC: YASAS 14:41 → Y3W 14:42
PROVIDERS: ADMIT Neuromusculoskeletal Medicine & OMM; ATTEND Neuromusculoskeletal Medicine & OMM
PROC: HZ42ZZZ Group Counseling for Substance Abuse Treatment, Cognitive-Behavioral (ICD-10-PCS; principal; 2019-03-02)
DX: F10.20 Alcohol dependence, uncomplicated (principal); F14.20 Cocaine dependence, uncomplicated; F16.20 Hallucinogen dependence, uncomplicated; Z21 Asymptomatic human immunodeficiency virus [HIV] infection status; J45.909 Unspecified asthma, uncomplicated; B18.2 Chronic viral hepatitis C; K21.9 Gastro-esophageal reflux disease without esophagitis

== ENCOUNTER 2019-05-14 13:31 | Inpatient (IN) | payer MEDICARE, OTHER ==
[2019-05-14 15:14] VITALS: BMI 29.8
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
[2019-05-14] MEDS ORDERED: MAGNESIUM CITRATE 300 ML BOTTLE PO PRN (19:11)
[2019-05-14] MEDS ORDERED: METHOCARBAMOL 500 MG TABLET PO PRN (19:11)
[2019-05-14] MEDS ORDERED: MAGNESIUM HYDROX 2400MG/30ML ORAL SUSPENSION 30 ML CUP PO PRN (19:11)
[2019-05-14] MEDS ORDERED: chlordiazePOXIDE HCL 10 MG CAPSULE PO PRN (19:11)
[2019-05-14] MEDS ORDERED: ACETAMINOPHEN 325 MG TABLET (FP) PO PRN ×2 (19:11)
[2019-05-14] MEDS ORDERED: BISMUTH SUBSALICYLATE 524 MG/30 ML UD PO PRN (19:11)
[2019-05-14] MEDS ORDERED: MENTHOL/PHENOL 1 EACH UD MM PRN (19:11)
[2019-05-14] MEDS: chlordiazePOXIDE HCL 25 MG CAPSULE PO SCH (21:13)
[2019-05-14] MEDS: MELATONIN 5 MG TABLETS PO PRN (21:13)
[2019-05-14] MEDS: THIAMINE HCL 100 MG TABLET (FP) PO SCH (21:14)
[2019-05-14] MEDS ORDERED: ACETIC ACID 2% OTIC SOLN 15ML BOTTLE AS SCH (22:00)
[2019-05-14] MEDS: ACETIC ACID 2% OTIC SOLN 15ML BOTTLE AD SCH (22:40)
[2019-05-15] MEDS: chlordiazePOXIDE HCL 25 MG CAPSULE PO SCH ×4 (05:52→22:03)
[2019-05-15] MEDS: ACETIC ACID 2% OTIC SOLN 15ML BOTTLE AD SCH ×3 (05:53→22:03)
[2019-05-15] MEDS ORDERED: PANTOPRAZOLE 40 MG TABLET (FP) PO SCH (10:00)
[2019-05-15] MEDS ORDERED: chlordiazePOXIDE HCL 25 MG CAPSULE PO PRN (10:12)
[2019-05-15] MEDS: PRENATAL VITAMINS W/ FOLIC ACID TABLET (FP) PO SCH (10:36)
[2019-05-15] MEDS: SULFAMETHOXAZOLE/TRIMETHOPRIM 800MG/160MG D.S. TABLET PO SCH (10:37)
[2019-05-15] MEDS: ASPIRIN 81 MG CHEWABLE TABLETS PO SCH (10:37)
[2019-05-15 12:14] LABS: HEMATOCRIT 37.4 % (32.4-45.2); HEMOGLOBIN 12.8 GM/dL (10.7-15.3); MCH 31.8 pg (25.7-33.7); MCHC 34.2 g/dl (32.0-36.0); MEAN CELL VOLUME 92.9 fl (80-96); MEAN PLT VOLUME 8.6 fl (7.5-11.1); PLATELET COUNT 157 K/MM3 (134-434); RBC 4.03 M/mm3 (3.60-5.2); RDW 13.4 % (11.6-15.6)
[2019-05-15 12:40] LABS: WHITE BLOOD COUNT 1.8 K/mm3 (4.0-10.0)
[2019-05-15 12:42] LABS: ALBUMIN 3.3 g/dl (3.4-5.0); BILIRUBIN,TOTAL 0.5 mg/dL (0.2-1); BLOOD UREA NITROGEN 14.9 mg/dL (7-18); CREATININE 0.8 mg/dL (0.55-1.3); POTASSIUM 4.7 mmol/L (3.5-5.1)
[2019-05-15] MEDS ORDERED: ALBUTEROL SO4 8 GM HFA INHALER IH PRN ×2 (14:46→15:47)
--- NOTE | 2019-05-15 14:54 | PN ---
[facility] Progress Note Note: Laboratory Last Values WBC 1.8 K/mm3 (4.0-10.0) L* 05/15/19 08:45 RBC 4.03 M/mm3 (3.60-5.2) 05/15/19 08:45 Hgb 12.8 GM/dL (10.7-15.3) 05/15/19 08:45 Hct 37.4 % (32.4-45.2) 05/15/19 08:45 MCV 92.9 fl (80-96) 05/15/19 08:45 MCH 31.8 pg (25.7-33.7) 05/15/19 08:45 MCHC 34.2 g/dl (32.0-36.0) 05/15/19 08:45 RDW 13.4 % (11.6-15.6) D 05/15/19 08:45 Plt Count 157 K/MM3 (134-434) 05/15/19 08:45 MPV 8.6 fl (7.5-11.1) 05/15/19 08:45 Sodium 134 mmol/L (136-145) L 05/15/19 08:45 Potassium 4.7 mmol/L (3.5-5.1) 05/15/19 08:45 Chloride 101 mmol/L (98-107) 05/15/19 08:45 Carbon Dioxide 26 mmol/L (21-32) 05/15/19 08:45 Anion Gap 7 MMOL/L (8-16) L 05/15/19 08:45 BUN 14.9 mg/dL (7-18) 05/15/19 08:45 Creatinine 0.8 mg/dL (0.55-1.3) 05/15/19 08:45 Est GFR (CKD-EPI)AfAm 88.42 05/15/19 08:45 Est GFR (CKD-EPI)NonAf 76.29 05/15/19 08:45 Random Glucose 79 mg/dL (74-106) 05/15/19 08:45 Calcium 9.0 mg/dL (8.5-10.1) 05/15/19 08:45 Total Bilirubin 0.5 mg/dL (0.2-1) 05/15/19 08:45 AST 14 U/L (15-37) L 05/15/19 08:45 ALT 13 U/L (13-61) 05/15/19 08:45 Alkaline Phosphatase 76 U/L (45-117) 05/15/19 08:45 Total Protein 7.0 g/dl (6.4-8.2) 05/15/19 08:45 Albumin 3.3 g/dl (3.4-5.0) L 05/15/19 08:45 POC Urine HCG, Qual Negative 05/14/19 17:04 wbc is 1,800,probably due to hiv, will repeat cbc in am continue detox, librium regimen close monitoring
[2019-05-15] MEDS ORDERED: RANITIDINE HCL 150 MG TABLET (FP) ONE (19:30)
[2019-05-15] MEDS: THIAMINE HCL 100 MG TABLET (FP) PO SCH (22:02)
[2019-05-15] MEDS: RANITIDINE HCL 150 MG TABLET (FP) PO SCH (22:02)
[2019-05-15] MEDS: MELATONIN 5 MG TABLETS PO PRN (22:03)
[2019-05-16] MEDS ORDERED: chlordiazePOXIDE 5 MG CAPSULE PO SCH (05:00)
[2019-05-16] MEDS: chlordiazePOXIDE HCL 25 MG CAPSULE PO SCH ×5 (05:43→22:10)
[2019-05-16] MEDS: ACETIC ACID 2% OTIC SOLN 15ML BOTTLE AD SCH ×3 (05:43→21:14)
[2019-05-16] MEDS: RITONAVIR 100 MG TABLET PO SCH (08:30)
[2019-05-16] MEDS: ATAZANAVIR SO4 300 MG CAPSULE PO SCH (08:30)
[2019-05-16] MEDS: EMTRICITABINE 200MG/TENOFOVIR 300MG PO SCH (08:31)
[2019-05-16] MEDS: IBUPROFEN 400 MG TABLET (FP) PO PRN (08:53)
[2019-05-16] MEDS: ASPIRIN 81 MG CHEWABLE TABLETS PO SCH ×2 (10:45→10:54)
[2019-05-16] MEDS: PRENATAL VITAMINS W/ FOLIC ACID TABLET (FP) PO SCH ×2 (10:45→10:50)
[2019-05-16] MEDS: RANITIDINE HCL 150 MG TABLET (FP) PO SCH ×3 (10:45→21:12)
[2019-05-16] MEDS: SULFAMETHOXAZOLE/TRIMETHOPRIM 800MG/160MG D.S. TABLET PO SCH (10:54)
[2019-05-16 10:55] LABS: HEMATOCRIT 35.3 % (32.4-45.2); HEMOGLOBIN 11.9 GM/dL (10.7-15.3); MCH 31.4 pg (25.7-33.7); MCHC 33.8 g/dl (32.0-36.0); MEAN CELL VOLUME 93.1 fl (80-96); MEAN PLT VOLUME 8.4 fl (7.5-11.1); PLATELET COUNT 155 K/MM3 (134-434); RDW 13.6 % (11.6-15.6)
[2019-05-16 11:01] LABS: WHITE BLOOD COUNT 1.9 K/mm3 (4.0-10.0)
--- NOTE | 2019-05-16 11:14 | PN ---
S CIWA - CIWA Score Nausea/Vomitin-Mild Nausea/No Vomiting Muscle Tremors: 1-None Visible, but [place] Anxiety: 2 Agitation: 2 Paroxysmal Sweats: No Perspiration Orientation: 0-Oriented Tacttile Disturbances: 1-Very Mild Itch/Numbness Auditory Disturbances: 0-None Visual Disturbances: 0-None Headache: 1-Very Mild CIWA-Ar Total Score: 8 [facility] Progress Note (SOAP) Subjective: alert,irritable,anxious,interrupted sleep,pain in the body Objective: 05/16/19 11:12 Vital Signs Temperature 98.4 F 05/16/19 09:14 Pulse Rate 85 05/16/19 09:14 Respiratory Rate 18 05/16/19 09:14 Blood Pressure 90/65 05/16/19 09:14 O2 Sat by Pulse Oximetry (%) Laboratory Results - last 24 hr 05/15/19 05/15/19 05/16/19 08:45 08:45 08:00 WBC 1.8 L* 1.9 L* RBC 4.03 3.80 Hgb 12.8 11.9 Hct 37.4 35.3 MCV 92.9 93.1 MCH 31.8 31.4 MCHC 34.2 33.8 RDW 13.4 D 13.6 Plt Count 157 155 MPV 8.6 8.4 Sodium 134 L Potassium 4.7 Chloride 101 Carbon Dioxide 26 Anion Gap 7 L BUN 14.9 Creatinine 0.8 Est GFR (CKD-EPI)AfAm 88.42 Est GFR (CKD-EPI)NonAf 76.29 Random Glucose 79 Calcium 9.0 Total Bilirubin 0.5 AST 14 L ALT 13 Alkaline Phosphatase 76 Total Protein 7.0 Albumin 3.3 L wbc 1,900 probably from hiv Assessment: 05/16/19 11:13 withdrawal symptom Plan: continue detox librium regimen,fluid
[2019-05-16] MEDS: MAG HYDROX/AL HYDROX/SIMETH 30 ML UNIT-DOSE CUP PO PRN (17:21)
[2019-05-16] MEDS: THIAMINE HCL 100 MG TABLET (FP) PO SCH (21:12)
[2019-05-17] MEDS ORDERED: chlordiazePOXIDE HCL 10 MG CAPSULE PO PRN
[2019-05-17] MEDS ORDERED: chlordiazePOXIDE HCL 10 MG CAPSULE PO SCH (05:00)
[2019-05-17] MEDS: chlordiazePOXIDE HCL 25 MG CAPSULE PO SCH ×4 (05:30→22:18)
[2019-05-17] MEDS: ACETIC ACID 2% OTIC SOLN 15ML BOTTLE AD SCH ×3 (05:34→22:19)
[2019-05-17] MEDS: ATAZANAVIR SO4 300 MG CAPSULE PO SCH (07:36)
[2019-05-17] MEDS: EMTRICITABINE 200MG/TENOFOVIR 300MG PO SCH (07:37)
[2019-05-17] MEDS: RITONAVIR 100 MG TABLET PO SCH (07:37)
[2019-05-17] MEDS: RANITIDINE HCL 150 MG TABLET (FP) PO SCH ×2 (10:12→22:18)
[2019-05-17] MEDS: ASPIRIN 81 MG CHEWABLE TABLETS PO SCH (10:12)
[2019-05-17] MEDS: PRENATAL VITAMINS W/ FOLIC ACID TABLET (FP) PO SCH (10:12)
[2019-05-17] MEDS: SULFAMETHOXAZOLE/TRIMETHOPRIM 800MG/160MG D.S. TABLET PO SCH (10:12)
--- NOTE | 2019-05-17 10:53 | PN ---
[facility] CIWA - CIWA Score Nausea/Vomitin-No Nausea/No Vomiting Muscle Tremors: 2 Anxiety: 3 Agitation: 0-Normal Activity Paroxysmal Sweats: 2 Orientation: 0-Oriented Tacttile Disturbances: 1-Very Mild Itch/Numbness Auditory Disturbances: 0-None Visual Disturbances: 1-Very Mild Sensitivity Headache: 0-None Present CIWA-Ar Total Score: 9 S Progress Note (SOAP) Subjective: c/o of back pain, interrupted sleep, chills Objective: 05/17/19 10:52 Vital Signs Temperature 97.2 F L 05/17/19 09:28 Pulse Rate 67 05/17/19 09:28 Respiratory Rate 18 05/17/19 09:28 Blood Pressure 100/63 05/17/19 09:28 O2 Sat by Pulse Oximetry (%) Laboratory Last Values WBC 1.9 K/mm3 (4.0-10.0) L* 05/16/19 08:00 RBC 3.80 M/mm3 (3.60-5.2) 05/16/19 08:00 Hgb 11.9 GM/dL (10.7-15.3) 05/16/19 08:00 Hct 35.3 % (32.4-45.2) 05/16/19 08:00 MCV 93.1 fl (80-96) 05/16/19 08:00 MCH 31.4 pg (25.7-33.7) 05/16/19 08:00 MCHC 33.8 g/dl (32.0-36.0) 05/16/19 08:00 RDW 13.6 % (11.6-15.6) 05/16/19 08:00 Plt Count 155 K/MM3 (134-434) 05/16/19 08:00 MPV 8.4 fl (7.5-11.1) 05/16/19 08:00 Sodium 134 mmol/L (136-145) L 05/15/19 08:45 Potassium 4.7 mmol/L (3.5-5.1) 05/15/19 08:45 Chloride 101 mmol/L (98-107) 05/15/19 08:45 Carbon Dioxide 26 mmol/L (21-32) 05/15/19 08:45 Anion Gap 7 MMOL/L (8-16) L 05/15/19 08:45 BUN 14.9 mg/dL (7-18) 05/15/19 08:45 Creatinine 0.8 mg/dL (0.55-1.3) 05/15/19 08:45 Est GFR (CKD-EPI)AfAm 88.42 05/15/19 08:45 Est GFR (CKD-EPI)NonAf 76.29 05/15/19 08:45 Random Glucose 79 mg/dL (74-106) 05/15/19 08:45 Calcium 9.0 mg/dL (8.5-10.1) 05/15/19 08:45 Total Bilirubin 0.5 mg/dL (0.2-1) 05/15/19 08:45 AST 14 U/L (15-37) L 05/15/19 08:45 ALT 13 U/L (13-61) 05/15/19 08:45 Alkaline Phosphatase 76 U/L (45-117) 05/15/19 08:45 Total Protein 7.0 g/dl (6.4-8.2) 05/15/19 08:45 Albumin 3.3 g/dl (3.4-5.0) L 05/15/19 08:45 POC Urine HCG, Qual Negative 05/14/19 17:04 low WBC d/t dx of immuno compromise status, patient to follow with primary care provider Assessment: 05/17/19 12:39 withdrawal sx Aox3 no acute distress EENT WNL, poor dentition full ROM , no gait abnormality ambulating in the unit Plan: increase PO fluids Patient to follow up with PCP upon discharge continue detox continue to monitor
[2019-05-17] MEDS: IBUPROFEN 400 MG TABLET (FP) PO PRN (14:25)
[2019-05-17] MEDS: MAG HYDROX/AL HYDROX/SIMETH 30 ML UNIT-DOSE CUP PO PRN (14:27)
[2019-05-17] MEDS: THIAMINE HCL 100 MG TABLET (FP) PO SCH (22:18)
[2019-05-17] MEDS: MELATONIN 5 MG TABLETS PO PRN (22:19)
[2019-05-18] MEDS ORDERED: chlordiazePOXIDE HCL 10 MG CAPSULE PO PRN
[2019-05-18] MEDS ORDERED: chlordiazePOXIDE HCL 10 MG CAPSULE PO ONE (05:00)
[2019-05-18] MEDS: chlordiazePOXIDE HCL 10 MG CAPSULE PO SCH ×4 (05:59→23:32)
[2019-05-18] MEDS: ACETIC ACID 2% OTIC SOLN 15ML BOTTLE AD SCH ×3 (06:01→21:48)
[2019-05-18] MEDS: ASPIRIN 81 MG CHEWABLE TABLETS PO SCH (10:19)
[2019-05-18] MEDS: ATAZANAVIR SO4 300 MG CAPSULE PO SCH (10:19)
[2019-05-18] MEDS: RITONAVIR 100 MG TABLET PO SCH (10:19)
[2019-05-18] MEDS: EMTRICITABINE 200MG/TENOFOVIR 300MG PO SCH (10:19)
[2019-05-18] MEDS: RANITIDINE HCL 150 MG TABLET (FP) PO SCH ×2 (10:20→21:48)
[2019-05-18] MEDS: SULFAMETHOXAZOLE/TRIMETHOPRIM 800MG/160MG D.S. TABLET PO SCH (10:20)
[2019-05-18] MEDS: PRENATAL VITAMINS W/ FOLIC ACID TABLET (FP) PO SCH (10:20)
--- NOTE | 2019-05-18 10:35 | PN ---
S CIWA - CIWA Score Nausea/Vomitin-No Nausea/No Vomiting Muscle Tremors: 2 Anxiety: 1-Mildly Anxious Agitation: 1-Slight > Activity Paroxysmal Sweats: 1-Minimal Palms Moist Orientation: 0-Oriented Tacttile Disturbances: 0-None Auditory Disturbances: 0-None Visual Disturbances: 0-None Headache: 0-None Present CIWA-Ar Total Score: 5 [facility] Progress Note (SOAP) Subjective: sweats agitation interrupted sleep Objective: 05/18/19 10:34 Vital Signs Temperature 96.5 F L 05/18/19 10:21 Pulse Rate 83 05/18/19 10:21 Respiratory Rate 18 05/18/19 10:21 Blood Pressure 100/65 05/18/19 10:21 O2 Sat by Pulse Oximetry (%) Laboratory Tests 05/14/19 05/15/19 05/15/19 17:04 08:45 08:45 WBC 1.8 L* RBC 4.03 Hgb 12.8 Hct 37.4 MCV 92.9 MCH 31.8 MCHC 34.2 RDW 13.4 D Plt Count 157 MPV 8.6 Sodium 134 L Potassium 4.7 Chloride 101 Carbon Dioxide 26 Anion Gap 7 L BUN 14.9 Creatinine 0.8 Est GFR (CKD-EPI)AfAm 88.42 Est GFR (CKD-EPI)NonAf 76.29 Random Glucose 79 Calcium 9.0 Total Bilirubin 0.5 AST 14 L ALT 13 Alkaline Phosphatase 76 Total Protein 7.0 Albumin 3.3 L POC Urine HCG, Qual Negative 05/16/19 08:00 WBC 1.9 L* RBC 3.80 Hgb 11.9 Hct 35.3 MCV 93.1 MCH 31.4 MCHC 33.8 RDW 13.6 Plt Count 155 MPV 8.4 Sodium Potassium Chloride Carbon Dioxide Anion Gap BUN Creatinine Est GFR (CKD-EPI)AfAm Est GFR (CKD-EPI)NonAf Random Glucose Calcium Total Bilirubin AST ALT Alkaline Phosphatase Total Protein Albumin POC Urine HCG, Qual labs pending aaox3 ambulating no acute distress Assessment: 05/18/19 10:43 mild withdrawals Plan: continue detox increase fluids
[2019-05-18 15:09] LABS: EPI CELLS 2.2 /HPF (0-5/HPF); HYALINE CASTS 0 /lpf (0-8); URINE APPEARANCE CLEAR; URINE BACTERIA 170.8 /hpf (NEGATIVE); URINE BILIRUBIN NEGATIVE (NEGATIVE); URINE COLOR YELLOW; URINE GLUCOSE (UA) NEGATIVE (NEGATIVE); URINE KETONE NEGATIVE (NEGATIVE); URINE LEUK ESTERASE TRACE (NEGATIVE); URINE NITRITE NEGATIVE (NEGATIVE); URINE PROTEIN NEGATIVE (NEGATIVE); URINE RBC 1 /hpf (0-4); URINE UROBILINOGEN 0.2 mg/dL (0.2-1.0); URINE WBC 1 /hpf (0-5)
[2019-05-18] MEDS: THIAMINE HCL 100 MG TABLET (FP) PO SCH (21:48)
[2019-05-18] MEDS: MELATONIN 5 MG TABLETS PO PRN (21:49)
[2019-05-19] MEDS: ACETIC ACID 2% OTIC SOLN 15ML BOTTLE AD SCH ×3 (06:49→22:31)
[2019-05-19] MEDS: ATAZANAVIR SO4 300 MG CAPSULE PO SCH (07:02)
[2019-05-19] MEDS: RITONAVIR 100 MG TABLET PO SCH (07:02)
[2019-05-19] MEDS: EMTRICITABINE 200MG/TENOFOVIR 300MG PO SCH (07:02)
[2019-05-19] MEDS: chlordiazePOXIDE HCL 10 MG CAPSULE PO SCH ×2 (07:04→17:53)
[2019-05-19] MEDS: PRENATAL VITAMINS W/ FOLIC ACID TABLET (FP) PO SCH (10:40)
[2019-05-19] MEDS: RANITIDINE HCL 150 MG TABLET (FP) PO SCH ×2 (10:40→22:31)
[2019-05-19] MEDS: ASPIRIN 81 MG CHEWABLE TABLETS PO SCH (10:40)
[2019-05-19] MEDS: SULFAMETHOXAZOLE/TRIMETHOPRIM 800MG/160MG D.S. TABLET PO SCH (10:40)
[2019-05-19 11:42] LABS: BASO % 0.8 % (0-2.0); EOS % 4.7 % (0-4.5); HEMOGLOBIN 13.3 GM/dL (10.7-15.3); LYMPH % 51.6 % (8-40); MCH 31.6 pg (25.7-33.7); MCHC 33.3 g/dl (32.0-36.0); MEAN CELL VOLUME 94.8 fl (80-96); MONO % 9.6 % (3.8-10.2); NEUT % 33.3 % (42.8-82.8); PLATELET COUNT 168 K/MM3 (134-434); RBC 4.22 M/mm3 (3.60-5.2); RDW 13.9 % (11.6-15.6); WHITE BLOOD COUNT 3.3 K/mm3 (4.0-10.0)
--- NOTE | 2019-05-19 14:14 | PN ---
S CIWA - CIWA Score Nausea/Vomitin-No Nausea/No Vomiting Muscle Tremors: None Anxiety: 2 Agitation: 0-Normal Activity Paroxysmal Sweats: 1-Minimal Palms Moist Orientation: 0-Oriented Tacttile Disturbances: 0-None Auditory Disturbances: 0-None Visual Disturbances: 0-None Headache: 0-None Present CIWA-Ar Total Score: 3 [facility] Progress Note (SOAP) Subjective: c/o mild sweats/anxiety. Objective: 05/19/19 14:13 Vital Signs 05/19/19 05/19/19 09:49 13:51 Temperature 98.2 F 98.4 F Pulse Rate 73 74 Respiratory 18 18 Rate Blood Pressure 89/61 L 96/56 L Lab Results WBC 3.3 K/mm3 (4.0-10.0) L 05/19/19 08:10 RBC 4.22 M/mm3 (3.60-5.2) 05/19/19 08:10 Hgb 13.3 GM/dL (10.7-15.3) 05/19/19 08:10 Hct 40.0 % (32.4-45.2) 05/19/19 08:10 MCV 94.8 fl (80-96) 05/19/19 08:10 MCHC 33.3 g/dl (32.0-36.0) 05/19/19 08:10 RDW 13.9 % (11.6-15.6) 05/19/19 08:10 Plt Count 168 K/MM3 (134-434) 05/19/19 08:10 Sodium 134 mmol/L (136-145) L 05/15/19 08:45 Potassium 4.7 mmol/L (3.5-5.1) 05/15/19 08:45 Chloride 101 mmol/L (98-107) 05/15/19 08:45 Carbon Dioxide 26 mmol/L (21-32) 05/15/19 08:45 Anion Gap 7 MMOL/L (8-16) L 05/15/19 08:45 BUN 14.9 mg/dL (7-18) 05/15/19 08:45 Creatinine 0.8 mg/dL (0.55-1.3) 05/15/19 08:45 Random Glucose 79 mg/dL (74-106) 05/15/19 08:45 Calcium 9.0 mg/dL (8.5-10.1) 05/15/19 08:45 Labs noted. Assessment: 05/19/19 14:13 AOX3, in no acute respiratory distress. Full ROM, ambulating in the unit. mild withdrawal symptoms. For discharge tomorrow. Plan: continue detox. D/C in AM.
[2019-05-19] MEDS: IBUPROFEN 400 MG TABLET (FP) PO PRN (14:31)
[2019-05-19] MEDS: THIAMINE HCL 100 MG TABLET (FP) PO SCH (22:31)
[2019-05-19] MEDS: MELATONIN 5 MG TABLETS PO PRN (22:32)
[2019-05-20] MEDS ORDERED: chlordiazePOXIDE HCL 10 MG CAPSULE PO ONE (05:00)
[2019-05-20] MEDS: ACETIC ACID 2% OTIC SOLN 15ML BOTTLE AD SCH (05:44)
[2019-05-20 09:31] VITALS: BP 95/61; PULSE 81; TEMP 97.9
[2019-05-20] MEDS: PRENATAL VITAMINS W/ FOLIC ACID TABLET (FP) PO SCH (10:36)
[2019-05-20] MEDS: EMTRICITABINE 200MG/TENOFOVIR 300MG PO SCH (10:36)
[2019-05-20] MEDS: SULFAMETHOXAZOLE/TRIMETHOPRIM 800MG/160MG D.S. TABLET PO SCH (10:36)
[2019-05-20] MEDS: ASPIRIN 81 MG CHEWABLE TABLETS PO SCH (10:36)
[2019-05-20] MEDS: ATAZANAVIR SO4 300 MG CAPSULE PO SCH (10:36)
[2019-05-20] MEDS: RANITIDINE HCL 150 MG TABLET (FP) PO SCH (10:36)
[2019-05-20] MEDS: RITONAVIR 100 MG TABLET PO SCH (10:36)
--- NOTE | 2019-05-20 13:43 | PN ---
[facility] CIWA - CIWA Score Nausea/Vomitin-No Nausea/No Vomiting Muscle Tremors: 1-None Visible, but [place] Anxiety: 0-No Anxiety, at Ease Agitation: 0-Normal Activity Paroxysmal Sweats: No Perspiration Orientation: 0-Oriented Tacttile Disturbances: 0-None Auditory Disturbances: 0-None Visual Disturbances: 0-None Headache: 0-None Present CIWA-Ar Total Score: 1 S Progress Note (SOAP) Subjective: 05/20/19 13:39 no complaints offered Objective: A & Ox 3 No acute distress noted Vital Signs Temperature 97.9 F 05/20/19 09:30 Pulse Rate 81 05/20/19 09:30 Respiratory Rate 16 05/20/19 09:30 Blood Pressure 95/61 05/20/19 09:30 O2 Sat by Pulse Oximetry (%) Assessment: 05/20/19 13:42 Detox completed Plan: for d/c
--- NOTE | 2019-05-20 13:45 | DS ---
[facility] Detox Discharge Summary Admission Date: 05/14/19 Discharge Date: 05/20/19 - History Additional Comments: completed detox For rehab at [facility] - Physical Exam Results Vital Signs: Vital Signs Temperature 97.9 F 05/20/19 09:30 Pulse Rate 81 05/20/19 09:30 Respiratory Rate 16 05/20/19 09:30 Blood Pressure 95/61 05/20/19 09:30 O2 Sat by Pulse Oximetry (%) Pertinent Admission Physical Exam Findings: withdrawal sx - Treatment Hospital Course: Detox Protocol Followed, Detoxed Safely, Responded well, Discharged Condition Good, Rehab Referral Accepted Patient has Accepted a Rehab Referral to: [facility] - Medication Discharge Medications: Ambulatory Orders Ritonavir [Norvir] 100 mg PO DAILY #30 capsule 03/28/16 Aspirin [ASA -] 81 mg PO DAILY #30 tab.chew 07/24/16 Atazanavir [Reyataz -] 300 mg PO DAILY@0800 10/03/18 Emtricitabine/Tenofovir [Truvada -] 1 tab PO DAILY 10/03/18 Esomeprazole Magnesium [Nexium 24Hr] 1 tab PO DAILY 10/03/18 Albuterol Sulfate Inhaler - [Ventolin HFA Inhaler -] 2 inh IH Q4H PRN #1 inhaler 11/05/18 Methocarbamol [Robaxin -] 500 mg PO BID 12/02/18 Sulfamethoxazole/Trimethoprim [Sulfamethoxazole-Tmp Ds Tablet] 1 each PO Cyanocobalamin [Vitamin B12 -] 100 mcg PO DAILY 05/14/19 - Diagnosis (1) Alcohol dependence with withdrawal Status: Acute Qualifiers: Complication of substance-induced condition: uncomplicated Qualified Code(s ): F10.230 - Alcohol dependence with withdrawal, uncomplicated (2) Insomnia Status: Acute Qualifiers: Insomnia type: alcohol-induced Qualified Code(s): F10.982 - Alcohol use, unspecified with alcohol-induced sleep disorder (3) Nystagmus Status: Acute (4) PCP (phencyclidine) abuse Status: Acute (5) Anemia Status: Chronic (6) Asthma Status: Chronic (7) Cocaine abuse Status: Chronic (8) GERD (gastroesophageal reflux disease) Status: Chronic Qualifiers: Esophagitis presence: without esophagitis Qualified Code(s): K21.9 - Gastro -esophageal reflux disease without esophagitis (9) HIV (human immunodeficiency virus infection) Status: Chronic Qualifiers: HIV symptom status: unspecified Qualified Code(s): B20 - Human immunodeficiency virus [HIV] disease (10) HLD (hyperlipidemia) Status: Chronic Qualifiers: Hyperlipidemia type: unspecified Qualified Code(s): E78.5 - Hyperlipidemia , unspecified (11) Hepatitis C Status: Chronic Qualifiers: Viral hepatitis chronicity: chronic Hepatic coma status: without hepatic coma Qualified Code(s): B18.2 - Chronic viral hepatitis C (12) History of abnormal electrocardiogram Status: Chronic (13) History of depression Status: Chronic (14) Hypertension Status: Chronic Qualifiers: Hypertension type: essential hypertension Qualified Code(s): I10 - Essential (primary) hypertension (15) Insomnia Status: Chronic (16) Walker as ambulation aid Status: Chronic (17) Substance induced mood disorder Status: Suspected - AMA Did Patient Leave Against Medical Advice: No
== END 2019-05-20 13:04 | disposition other institution (70) | DRG 897 ==
LOC: YASAS 13:31 → Y6N 19:07
PROVIDERS: ADMIT Surgery; ATTEND Surgery
PROC: HZ2ZZZZ Detoxification Services for Substance Abuse Treatment (ICD-10-PCS; principal; 2019-05-14)
DX: F10.230 Alcohol dependence with withdrawal, uncomplicated (principal); F14.10 Cocaine abuse, uncomplicated; F16.10 Hallucinogen abuse, uncomplicated; F10.982 Alcohol use, unspecified with alcohol-induced sleep disorder; F19.24 Other psychoactive substance dependence with psychoactive substance-induced mood disorder; F32.9 Major depressive disorder, single episode, unspecified; Z21 Asymptomatic human immunodeficiency virus [HIV] infection status; G47.00 Insomnia, unspecified; I10 Essential (primary) hypertension; J45.909 Unspecified asthma, uncomplicated; K21.9 Gastro-esophageal reflux disease without esophagitis; H55.00 Unspecified nystagmus; D64.9 Anemia, unspecified; R94.31 Abnormal electrocardiogram [ECG] [EKG]; Z99.89 Dependence on other enabling machines and devices; Z91.018 Allergy to other foods
CPT/HCPCS: 36415; 80053; 81003; 81025; 85025; 85027

== ENCOUNTER 2019-05-20 13:16 | Inpatient (IN) | payer OTHER ==
--- NOTE | 2019-05-20 13:49 | HP ---
[facility] Rehab Assess/Revision - Admission History Admitted to Rehab from: [facility] Date of Admission to Rehab: 05/20/19 - Findings Detox History & Physical reviewed: Yes Concur with findings: Yes Inpatient Rehab Admission - Rehab Decision to Admit Inpatient rehab admission?: Yes - Initial Determination Are CD services needed?: No Free of communicable disease: Yes Not in need of hospitalization: Yes - Rehab Admission Criteria Previous failed treatment: Yes Poor recovery environment: Yes Comorbidities: Yes Lacks judgement: Yes Patient is meeting Inpatient Rehab admission criteria:: Yes
[2019-05-20] MEDS ORDERED: MAGNESIUM HYDROX 2400MG/30ML ORAL SUSPENSION 30 ML CUP PO PRN (13:50)
[2019-05-20] MEDS ORDERED: P-EPHED 60MG/TRIPROLIDI 2.5MG TABLET PO PRN (13:50)
[2019-05-20] MEDS ORDERED: guaiFENesin 200 MG/10 ML 10 ML UNIT-DOSE CUPS PO PRN (13:50)
[2019-05-20] MEDS ORDERED: MENTHOL/PHENOL 1 EACH UD MM PRN (13:50)
[2019-05-20] MEDS ORDERED: LOPERAMIDE HCL 2 MG CAPSULE PO PRN (13:50)
[2019-05-20] MEDS ORDERED: NICOTINE POLACRILEX 2 MG GUM BUC PRN (13:50)
[2019-05-20] MEDS ORDERED: ACETAMINOPHEN 325 MG TABLET (FP) PO PRN (13:50)
[2019-05-20] MEDS ORDERED: MAGNESIUM CITRATE 300 ML BOTTLE PO PRN (13:50)
[2019-05-20] MEDS ORDERED: ALBUTEROL SO4 8 GM HFA INHALER IH PRN (13:51)
[2019-05-20] MEDS: MELATONIN 5 MG TABLETS PO PRN (21:30)
[2019-05-20] MEDS: THIAMINE HCL 100 MG TABLET (FP) PO SCH (21:30)
[2019-05-20] MEDS: RANITIDINE HCL 150 MG TABLET (FP) PO SCH (21:30)
[2019-05-21] MEDS: MAG HYDROX/AL HYDROX/SIMETH 30 ML UNIT-DOSE CUP PO PRN ×2 (01:44→21:27)
[2019-05-21] MEDS: ATAZANAVIR SO4 300 MG CAPSULE PO SCH (09:00)
[2019-05-21] MEDS: RANITIDINE HCL 150 MG TABLET (FP) PO SCH ×2 (10:39→21:25)
[2019-05-21] MEDS: ASPIRIN 81 MG CHEWABLE TABLETS PO SCH (10:39)
[2019-05-21] MEDS: PRENATAL VITAMINS W/ FOLIC ACID TABLET (FP) PO SCH (10:39)
[2019-05-21] MEDS: IBUPROFEN 400 MG TABLET (FP) PO PRN ×2 (10:44→21:26)
[2019-05-21] MEDS: EMTRICITABINE 200MG/TENOFOVIR 300MG PO SCH (10:47)
[2019-05-21] MEDS: RITONAVIR 100 MG TABLET PO SCH (10:48)
[2019-05-21] MEDS: NICOTINE 21 MG/24 HOURS TOPICAL PATCH TD SCH (10:49)
[2019-05-21] MEDS: CYANOCOBALAMIN (VITAMIN B-12) 100 MCG TABLET PO SCH (14:07)
[2019-05-21] MEDS: MELATONIN 5 MG TABLETS PO PRN (21:25)
[2019-05-21] MEDS: THIAMINE HCL 100 MG TABLET (FP) PO SCH (21:25)
[2019-05-22] MEDS ORDERED: PT OWN MED DRAWER 7, Y5N ONE (06:38)
[2019-05-22 07:19] VITALS: BP 103/69; PULSE 78; TEMP 97.9
[2019-05-22] MEDS: ATAZANAVIR SO4 300 MG CAPSULE PO SCH (08:42)
[2019-05-22] MEDS: RITONAVIR 100 MG TABLET PO SCH (08:42)
--- NOTE | 2019-05-22 09:28 | DS ---
[facility] Rehab Discharge Summary - [facility] Rehab Discharge Summary Admission Date: 05/20/19 Discharge Date: 05/22/19 - History Present History: Alcohol dependence, Cocaine dependence, PCP dependence Pertinent Past History: 68 yo w/ multiple admissions to [facility] for detox and rehab Last discharged 03/06/19. RPR: 02/28/19: Non-reactive EK08/30/18: Abnormal Alcohol use began at age 14. States currently drinks 2 pints/day x 2-3 months. States last drink this am. Cocaine/crack use since age 26. States last use 3 days ago. Denies pill use. PEGGY 0.0 UTox: JUNE/BZO Longest length of sobriety 7 months. Denies seizures, blackouts, or overdoses. Patient states had a heart attack in 2007 and was put on 'unknown' pills. States no medication for months. PMHx: Asthma (No exacerbation in years); HTN; Acid Reflux: DM: controlled by diet; Arthritis w/ bilateral knee pain. HIV+ but non-compliant w/ medications or healthcare follow-up. MHHx: Occ depression. Denies thoughts of harming self or others. SHx: SRO; Unemployed ([employer]) - Discharge Physical Exam Vital Signs: Vital Signs Temperature 97.9 F 05/22/19 07:18 Pulse Rate 78 05/22/19 07:18 Respiratory Rate 18 05/22/19 07:18 Blood Pressure 103/69 05/22/19 07:18 O2 Sat by Pulse Oximetry (%) Pertinent Admission Physical Exam Findings: - Physical General Appearance: No apparent distress HEENTM: Normocephalic,PERRLA Respiratory: Lungs Clear, Neck: Supple Cardiology: S1, S2 Abdominal: Non Tender, Soft, +Bowel Sounds Musculoskeletal: Yes: full range of Motion, Gait Steady 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: Alert, Motor Strength 5/5, Integumentary:Color consistent throughout trunk and extremities Lymphatic: No palpable lymph nodes - Treatment Discharge Condition: Outpatient referral accepted (Medically stable for discharge. Patient will make her own appointment at [facility] Hospital Course: patient attended groups, had 1:1 meetings with her counselor and was adherent to the treatment plan and medication regimen. - Medication Discharge Medications: Ambulatory Orders Methocarbamol [Robaxin -] 500 mg PO BID PRN 12/02/18 Ranitidine HCl [Zantac] 150 mg PO BID 05/20/19 Albuterol Sulfate Inhaler - [Ventolin HFA Inhaler -] 2 inh IH Q4H PRN #1 inhaler 05/22/19 Aspirin [ASA -] 81 mg PO DAILY #30 tab.chew 05/22/19 Atazanavir [Reyataz -] 300 mg PO DAILY@0800 #30 capsule 05/22/19 Cyanocobalamin [Vitamin B12 -] 100 mcg PO DAILY #30 tablet 05/22/19 Emtricitabine/Tenofovir [Truvada -] 1 tab PO DAILY #30 tablet 05/22/19 Esomeprazole Magnesium [Nexium 24Hr] 1 tab PO DAILY #30 capsule.dr 05/22/19 Ritonavir [Norvir -] 100 mg PO DAILY@0800 #30 tab 05/22/19 Sulfamethoxazole/Trimethoprim [Sulfamethoxazole-Tmp Ds Tablet] 1 each PO DAILY # 30 tablet 05/22/19 - Medication-Assisted Treatment (MAT) Medication-Assisted Treatment (MAT): No - Discharge Instructions Diet, activity, other medical instructions: Diet: as tolerated Activity: as tolerated Other medical instructions: as tolerated - Diagnosis (1) PCP (phencyclidine) abuse Current Visit: No Status: Acute (2) Alcohol use disorder Current Visit: No Status: Chronic (3) Cocaine use disorder Current Visit: No Status: Chronic (4) HIV (human immunodeficiency virus infection) Current Visit: No Status: Chronic Qualifiers: HIV symptom status: unspecified Qualified Code(s): B20 - Human immunodeficiency virus [HIV] disease - Follow-up Referral Minutes to complete discharge: 20 - AMA Did Patient Leave Against Medical Advice: No
[2019-05-22] MEDS: NICOTINE 21 MG/24 HOURS TOPICAL PATCH TD SCH (10:06)
[2019-05-22] MEDS: PRENATAL VITAMINS W/ FOLIC ACID TABLET (FP) PO SCH (10:06)
[2019-05-22] MEDS: ASPIRIN 81 MG CHEWABLE TABLETS PO SCH (10:06)
[2019-05-22] MEDS: RANITIDINE HCL 150 MG TABLET (FP) PO SCH (10:07)
[2019-05-22] MEDS: EMTRICITABINE 200MG/TENOFOVIR 300MG PO SCH (10:07)
[2019-05-22] MEDS: CYANOCOBALAMIN (VITAMIN B-12) 100 MCG TABLET PO SCH (10:07)
== END 2019-05-22 09:32 | disposition home or self-care (01) | DRG 895 ==
LOC: YASAS 13:16 → Y3E 13:17
PROVIDERS: ADMIT Neuromusculoskeletal Medicine & OMM; ATTEND Neuromusculoskeletal Medicine & OMM
PROC: HZ42ZZZ Group Counseling for Substance Abuse Treatment, Cognitive-Behavioral (ICD-10-PCS; principal; 2019-05-20)
DX: F10.20 Alcohol dependence, uncomplicated (principal); F14.20 Cocaine dependence, uncomplicated; F16.10 Hallucinogen abuse, uncomplicated; J45.909 Unspecified asthma, uncomplicated; Z21 Asymptomatic human immunodeficiency virus [HIV] infection status; K21.9 Gastro-esophageal reflux disease without esophagitis

== ENCOUNTER 2019-08-02 14:51 | Inpatient (IN) | payer OTHER ==
[2019-08-02 15:18] VITALS: BMI 30.3
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
[2019-08-02] MEDS ORDERED: ACETAMINOPHEN 325 MG TABLET (FP) PO PRN (17:43)
[2019-08-02] MEDS ORDERED: METHOCARBAMOL 500 MG TABLET PO PRN (17:43)
[2019-08-02] MEDS ORDERED: MENTHOL/PHENOL 1 EACH UD MM PRN (17:43)
[2019-08-02] MEDS ORDERED: MAGNESIUM HYDROX 2400MG/30ML ORAL SUSPENSION 30 ML CUP PO PRN (17:43)
[2019-08-02] MEDS ORDERED: MAGNESIUM CITRATE 300 ML BOTTLE PO PRN (17:43)
[2019-08-02] MEDS ORDERED: BISMUTH SUBSALICYLATE 524 MG/30 ML UD PO PRN (17:43)
[2019-08-02] MEDS ORDERED: ALBUTEROL SO4 HFA INHALER IH PRN (17:55)
[2019-08-02] MEDS: diazePAM 5 MG TABLET PO PRN (18:54)
--- NOTE | 2019-08-02 18:57 | PN ---
Teaching Attending Note Name of Resident: Jerod Dutton ATTENDING PHYSICIAN STATEMENT I saw and evaluated the patient. I reviewed the resident's note and discussed the case with the resident. I agree with the resident's findings and plan as documented. SUBJECTIVE: 69 yo female pt here for etoh use , claims 1 pint vodka and 4-5 beers/day , denies blackouts, tremors or seizures if not drinking alcohol , latest use today . PMH HIV non- compliant w/ meds or f/up , Asthma . cocaine : 2 x/week , latest 2 days ago . OBJECTIVE: wnwd , mild distress Vital Signs - 24 hr 08/02/19 15:00 Temperature 98.8 F Pulse Rate 73 Respiratory 18 Rate Blood Pressure 129/79 ASSESSMENT AND PLAN: AUD - Valium detox
[2019-08-02] MEDS: MAG HYDROX/AL HYDROX/SIMETH 30 ML UNIT-DOSE CUP PO PRN (20:11)
[2019-08-02] MEDS: diazePAM 5 MG TABLET PO SCH (22:29)
[2019-08-02] MEDS: THIAMINE HCL 100 MG TABLET (FP) PO SCH (22:29)
[2019-08-02] MEDS: MELATONIN 5 MG TABLETS PO PRN (22:30)
[2019-08-03] MEDS: diazePAM 5 MG TABLET PO SCH (06:08)
[2019-08-03] MEDS ORDERED: ATAZANAVIR SO4 300 MG CAPSULE PO SCH (08:00)
[2019-08-03] MEDS ORDERED: RITONAVIR 100 MG TABLET PO SCH (08:00)
[2019-08-03] MEDS ORDERED: EMTRICITABINE 200MG/TENOFOVIR 300MG PO SCH (10:00)
[2019-08-03] MEDS ORDERED: SULFAMETHOXAZOLE/TRIMETHOPRIM 800MG/160MG D.S. TABLET PO SCH ×2 (10:00)
[2019-08-03] MEDS ORDERED: PANTOPRAZOLE 20 MG TABLET PO SCH (10:00)
[2019-08-03 10:29] LABS: HEMATOCRIT 32.1 % (32.4-45.2); HEMOGLOBIN 10.6 GM/dL (10.7-15.3); MEAN CELL VOLUME 93.9 fl (80-96); MEAN PLT VOLUME 7.9 fl (7.5-11.1); PLATELET COUNT 179 K/MM3 (134-434); RBC 3.42 M/mm3 (3.60-5.2); RDW 14.9 % (11.6-15.6); WHITE BLOOD COUNT 2.8 K/mm3 (4.0-10.0)
[2019-08-03] MEDS: PRENATAL VITAMINS W/ FOLIC ACID TABLET (FP) PO SCH (10:30)
[2019-08-03] MEDS: ASPIRIN 81 MG CHEWABLE TABLETS PO SCH (10:30)
[2019-08-03] MEDS: diazePAM 5 MG TABLET PO PRN (10:33)
[2019-08-03 10:44] LABS: ALBUMIN 2.8 g/dl (3.4-5.0); BILIRUBIN,TOTAL 0.2 mg/dL (0.2-1); BLOOD UREA NITROGEN 15.2 mg/dL (7-18); CALCIUM 8.9 mg/dL (8.5-10.1); CREATININE 1.2 mg/dL (0.55-1.3)
--- NOTE | 2019-08-03 11:29 | PN ---
S CIWA - CIWA Score Nausea/Vomitin-Mild Nausea/No Vomiting Muscle Tremors: 2 Anxiety: 2 Agitation: 2 Paroxysmal Sweats: 2 Orientation: 1-Uncertain about Date Tacttile Disturbances: 0-None Auditory Disturbances: 0-None Visual Disturbances: 0-None Headache: 1-Very Mild CIWA-Ar Total Score: 11 BHS Progress Note (SOAP) Subjective: pt states valium does not controls her withdrawal Sx, prefers librium also would like zantac O: Vital Signs - 24 hr 08/02/19 08/02/19 08/03/19 15:00 23:49 00:30 Temperature 98.8 F 97.8 F Pulse Rate 73 80 Respiratory 18 18 18 Rate Blood Pressure 129/79 133/80 08/03/19 08/03/19 08/03/19 03:37 06:44 09:15 Temperature 97.8 F 96.9 F L Pulse Rate 86 87 Respiratory 18 18 16 Rate Blood Pressure 98/66 92/60 Laboratory Tests 08/02/19 08/03/19 08/03/19 17:48 08:00 08:00 WBC 2.8 L RBC 3.42 L Hgb 10.6 L Hct 32.1 L D MCV 93.9 MCH 31.0 MCHC 33.0 RDW 14.9 Plt Count 179 MPV 7.9 D Sodium 138 Potassium 4.0 Chloride 104 Carbon Dioxide 26 Anion Gap 9 BUN 15.2 Creatinine 1.2 Est GFR (CKD-EPI)AfAm 53.78 Est GFR (CKD-EPI)NonAf 46.40 Random Glucose 78 Calcium 8.9 Total Bilirubin 0.2 AST 14 L ALT 11 L Alkaline Phosphatase 85 Total Protein 6.0 L Albumin 2.8 L POC Urine HCG, Qual Negative anemia low GFR low albumin/protein a/p: Continue alcohol detox: will add zantac and swtich to librium per pt request
[2019-08-03] MEDS ORDERED: RANITIDINE HCL 150 MG/10 ML UNIT-DOSE PO PRN (11:37)
[2019-08-03] MEDS ORDERED: LORazepam 1 MG TABLET PO PRN (11:39)
[2019-08-03] MEDS ORDERED: FLU VACCINE QUAD 60 MCG/0.5 ML (MDV 19-20) IM ONE (12:00)
[2019-08-03] MEDS ORDERED: chlordiazePOXIDE HCL 25 MG CAPSULE PO PRN (13:21)
[2019-08-03] MEDS: chlordiazePOXIDE HCL 25 MG CAPSULE PO SCH ×2 (16:17→22:14)
[2019-08-03] MEDS: guaiFENesin/D-METHORPHAN HB 10 ML UNIT-DOSE CUPS PO PRN (16:19)
[2019-08-03] MEDS: FAMOTIDINE 20 MG TABLET PO PRN (16:39)
[2019-08-03] MEDS ORDERED: LORazepam 2 MG TABLET PO SCH (17:00)
[2019-08-03] MEDS: THIAMINE HCL 100 MG TABLET (FP) PO SCH (22:14)
[2019-08-03] MEDS: MELATONIN 5 MG TABLETS PO PRN (22:14)
[2019-08-04] MEDS: chlordiazePOXIDE HCL 25 MG CAPSULE PO SCH ×4 (05:53→22:38)
[2019-08-04] MEDS: IBUPROFEN 400 MG TABLET (FP) PO PRN ×3 (05:53→22:39)
[2019-08-04] MEDS: guaiFENesin/D-METHORPHAN HB 10 ML UNIT-DOSE CUPS PO PRN (05:55)
[2019-08-04] MEDS ORDERED: diazePAM 5 MG TABLET PO SCH (06:00)
[2019-08-04] MEDS: PRENATAL VITAMINS W/ FOLIC ACID TABLET (FP) PO SCH (10:46)
[2019-08-04] MEDS: ASPIRIN 81 MG CHEWABLE TABLETS PO SCH (10:46)
--- NOTE | 2019-08-04 12:43 | PN ---
[facility] CIWA - CIWA Score Nausea/Vomitin-No Nausea/No Vomiting Muscle Tremors: 2 Anxiety: 3 Agitation: 0-Normal Activity Paroxysmal Sweats: 3 Orientation: 0-Oriented Tacttile Disturbances: 0-None Auditory Disturbances: 0-None Visual Disturbances: 0-None Headache: 1-Very Mild CIWA-Ar Total Score: 9 S Progress Note (SOAP) Subjective: c/o headache, sweats, and anxiety. Objective: 08/04/19 12:43 Vital Signs 08/04/19 08/04/19 06:46 09:31 Temperature 97 F L 98.0 F Pulse Rate 74 75 Respiratory 18 18 Rate Blood Pressure 91/62 102/68 Laboratory Last Values WBC 2.8 K/mm3 (4.0-10.0) L 08/03/19 08:00 RBC 3.42 M/mm3 (3.60-5.2) L 08/03/19 08:00 Hgb 10.6 GM/dL (10.7-15.3) L 08/03/19 08:00 Hct 32.1 % (32.4-45.2) L D 08/03/19 08:00 MCV 93.9 fl (80-96) 08/03/19 08:00 MCH 31.0 pg (25.7-33.7) 08/03/19 08:00 MCHC 33.0 g/dl (32.0-36.0) 08/03/19 08:00 RDW 14.9 % (11.6-15.6) 08/03/19 08:00 Plt Count 179 K/MM3 (134-434) 08/03/19 08:00 MPV 7.9 fl (7.5-11.1) D 08/03/19 08:00 Sodium 138 mmol/L (136-145) 08/03/19 08:00 Potassium 4.0 mmol/L (3.5-5.1) 08/03/19 08:00 Chloride 104 mmol/L (98-107) 08/03/19 08:00 Carbon Dioxide 26 mmol/L (21-32) 08/03/19 08:00 Anion Gap 9 MMOL/L (8-16) 08/03/19 08:00 BUN 15.2 mg/dL (7-18) 08/03/19 08:00 Creatinine 1.2 mg/dL (0.55-1.3) 08/03/19 08:00 Est GFR (CKD-EPI)AfAm 53.78 08/03/19 08:00 Est GFR (CKD-EPI)NonAf 46.40 08/03/19 08:00 Random Glucose 78 mg/dL (74-106) 08/03/19 08:00 Calcium 8.9 mg/dL (8.5-10.1) 08/03/19 08:00 Total Bilirubin 0.2 mg/dL (0.2-1) 08/03/19 08:00 AST 14 U/L (15-37) L 08/03/19 08:00 ALT 11 U/L (13-61) L 08/03/19 08:00 Alkaline Phosphatase 85 U/L (45-117) 08/03/19 08:00 Total Protein 6.0 g/dl (6.4-8.2) L 08/03/19 08:00 Albumin 2.8 g/dl (3.4-5.0) L 08/03/19 08:00 POC Urine HCG, Qual Negative 08/02/19 17:48 Labs noted. Assessment: 08/04/19 12:43 AOX3, in no respiratory distress. Full ROM, ambulating in the unit. Withdrawal symptoms. Plan: continue detox.
[2019-08-04] MEDS: MAG HYDROX/AL HYDROX/SIMETH 30 ML UNIT-DOSE CUP PO PRN (16:59)
[2019-08-04] MEDS: THIAMINE HCL 100 MG TABLET (FP) PO SCH (22:38)
[2019-08-04] MEDS: MELATONIN 5 MG TABLETS PO PRN (22:39)
[2019-08-05] MEDS ORDERED: LORazepam 1 MG TABLET PO SCH (05:00)
[2019-08-05] MEDS: chlordiazePOXIDE HCL 25 MG CAPSULE PO SCH ×4 (05:59→22:42)
[2019-08-05] MEDS ORDERED: diazePAM 5 MG TABLET PO ONE (06:00)
[2019-08-05] MEDS: IBUPROFEN 400 MG TABLET (FP) PO PRN (06:01)
[2019-08-05] MEDS: guaiFENesin/D-METHORPHAN HB 10 ML UNIT-DOSE CUPS PO PRN (06:05)
[2019-08-05] MEDS: FAMOTIDINE 20 MG TABLET PO PRN (06:06)
[2019-08-05] MEDS: ASPIRIN 81 MG CHEWABLE TABLETS PO SCH (11:00)
[2019-08-05] MEDS: PRENATAL VITAMINS W/ FOLIC ACID TABLET (FP) PO SCH (11:00)
[2019-08-05] MEDS ORDERED: LIDOCAINE VISCOUS 2% ORAL/TOP 20 ML UNIT-DOSE CUP MM PRN (13:23)
--- NOTE | 2019-08-05 13:27 | PN ---
S CIWA - CIWA Score Nausea/Vomitin-Mild Nausea/No Vomiting Muscle Tremors: 3 Anxiety: 3 Agitation: 2 Paroxysmal Sweats: 2 Orientation: 1-Uncertain about Date Tacttile Disturbances: 0-None Auditory Disturbances: 0-None Visual Disturbances: 0-None Headache: 2-Mild CIWA-Ar Total Score: 14 S Progress Note (SOAP) Subjective: 69 years old female admitted on 08/02/19 for alcohol withdrawal sx management treating with librium detox regimen c/o tooth ache right upper tooth partially missing no bleeding no gum swelling no trouble chewing solid food nor swallowing food lidocaine 2% MM tid prn c/o long history of gerd discontinue motrin begin pepcid 20 mg po bid standing order discontinue pepcid prn order c/o trouble sleep through the night belsomra 5 mg po x 1 Objective: 08/05/19 13:28 Vital Signs Temperature 97.2 F L 08/05/19 13:18 Pulse Rate 74 08/05/19 13:18 Respiratory Rate 16 08/05/19 13:18 Blood Pressure 99/64 08/05/19 13:18 O2 Sat by Pulse Oximetry (%) Laboratory Last Values WBC 2.8 K/mm3 (4.0-10.0) L 08/03/19 08:00 RBC 3.42 M/mm3 (3.60-5.2) L 08/03/19 08:00 Hgb 10.6 GM/dL (10.7-15.3) L 08/03/19 08:00 Hct 32.1 % (32.4-45.2) L D 08/03/19 08:00 MCV 93.9 fl (80-96) 08/03/19 08:00 MCH 31.0 pg (25.7-33.7) 08/03/19 08:00 MCHC 33.0 g/dl (32.0-36.0) 08/03/19 08:00 RDW 14.9 % (11.6-15.6) 08/03/19 08:00 Plt Count 179 K/MM3 (134-434) 08/03/19 08:00 MPV 7.9 fl (7.5-11.1) D 08/03/19 08:00 Sodium 138 mmol/L (136-145) 08/03/19 08:00 Potassium 4.0 mmol/L (3.5-5.1) 08/03/19 08:00 Chloride 104 mmol/L (98-107) 08/03/19 08:00 Carbon Dioxide 26 mmol/L (21-32) 08/03/19 08:00 Anion Gap 9 MMOL/L (8-16) 08/03/19 08:00 BUN 15.2 mg/dL (7-18) 08/03/19 08:00 Creatinine 1.2 mg/dL (0.55-1.3) 08/03/19 08:00 Est GFR (CKD-EPI)AfAm 53.78 08/03/19 08:00 Est GFR (CKD-EPI)NonAf 46.40 08/03/19 08:00 Random Glucose 78 mg/dL (74-106) 08/03/19 08:00 Calcium 8.9 mg/dL (8.5-10.1) 08/03/19 08:00 Total Bilirubin 0.2 mg/dL (0.2-1) 08/03/19 08:00 AST 14 U/L (15-37) L 08/03/19 08:00 ALT 11 U/L (13-61) L 08/03/19 08:00 Alkaline Phosphatase 85 U/L (45-117) 08/03/19 08:00 Total Protein 6.0 g/dl (6.4-8.2) L 08/03/19 08:00 Albumin 2.8 g/dl (3.4-5.0) L 08/03/19 08:00 POC Urine HCG, Qual Negative 08/02/19 17:48 lab noted long history of hiv treating with ARV with low wbc patient is asymptomatic at this time will follow up with primary ID provider Assessment: 08/05/19 13:30 alcohol withdrawal Plan: librium regimen
[2019-08-05] MEDS: FAMOTIDINE 20 MG TABLET PO SCH ×2 (13:52→22:42)
[2019-08-05] MEDS: ACETAMINOPHEN 325 MG TABLET (FP) PO PRN (18:02)
[2019-08-05] MEDS ORDERED: SUVOREXANT 5 MG TABLET PO ONE (22:00)
[2019-08-05] MEDS: THIAMINE HCL 100 MG TABLET (FP) PO SCH (22:43)
[2019-08-06] MEDS ORDERED: LORazepam 0.5 MG TABLET PO PRN
[2019-08-06] MEDS ORDERED: LORazepam 0.5 MG TABLET PO SCH (05:00)
[2019-08-06] MEDS: chlordiazePOXIDE HCL 10 MG CAPSULE PO SCH ×4 (06:12→22:42)
[2019-08-06] MEDS: PRENATAL VITAMINS W/ FOLIC ACID TABLET (FP) PO SCH (09:02)
[2019-08-06] MEDS: ASPIRIN 81 MG CHEWABLE TABLETS PO SCH (09:02)
[2019-08-06] MEDS: hydrOXYzine PAMOATE 25 MG CAPSULE (FP) PO PRN (09:02)
[2019-08-06] MEDS: MAG HYDROX/AL HYDROX/SIMETH 30 ML UNIT-DOSE CUP PO PRN ×2 (09:10→20:57)
[2019-08-06] MEDS: FAMOTIDINE 20 MG TABLET PO SCH ×2 (10:31→22:42)
--- NOTE | 2019-08-06 13:26 | PN ---
[facility] CIWA - CIWA Score Nausea/Vomitin-Mild Nausea/No Vomiting Muscle Tremors: 2 Anxiety: 3 Agitation: 2 Paroxysmal Sweats: 1-Minimal Palms Moist Orientation: 0-Oriented Tacttile Disturbances: 1-Very Mild Itch/Numbness Auditory Disturbances: 0-None Visual Disturbances: 0-None Headache: 1-Very Mild CIWA-Ar Total Score: 11 S Progress Note (SOAP) Subjective: 69 years old female admitted on 08/02/19 for alcohol withdrawal sx management treating with librium detox regimen sleep better at night ate breakfast and lunch tolerated food and fluid better Objective: 08/06/19 15:23 Vital Signs Temperature 97.5 F L 08/06/19 13:23 Pulse Rate 74 08/06/19 13:23 Respiratory Rate 17 08/06/19 13:23 Blood Pressure 91/61 08/06/19 13:23 O2 Sat by Pulse Oximetry (%) Laboratory Last Values WBC 2.8 K/mm3 (4.0-10.0) L 08/03/19 08:00 RBC 3.42 M/mm3 (3.60-5.2) L 08/03/19 08:00 Hgb 10.6 GM/dL (10.7-15.3) L 08/03/19 08:00 Hct 32.1 % (32.4-45.2) L D 08/03/19 08:00 MCV 93.9 fl (80-96) 08/03/19 08:00 MCH 31.0 pg (25.7-33.7) 08/03/19 08:00 MCHC 33.0 g/dl (32.0-36.0) 08/03/19 08:00 RDW 14.9 % (11.6-15.6) 08/03/19 08:00 Plt Count 179 K/MM3 (134-434) 08/03/19 08:00 MPV 7.9 fl (7.5-11.1) D 08/03/19 08:00 Sodium 138 mmol/L (136-145) 08/03/19 08:00 Potassium 4.0 mmol/L (3.5-5.1) lab 08/03/19 08:00 Chloride 104 mmol/L (98-107) 08/03/19 08:00 Carbon Dioxide 26 mmol/L (21-32) 08/03/19 08:00 Anion Gap 9 MMOL/L (8-16) 08/03/19 08:00 BUN 15.2 mg/dL (7-18) 08/03/19 08:00 Creatinine 1.2 mg/dL (0.55-1.3) 08/03/19 08:00 Est GFR (CKD-EPI)AfAm 53.78 08/03/19 08:00 Est GFR (CKD-EPI)NonAf 46.40 08/03/19 08:00 Random Glucose 78 mg/dL (74-106) 08/03/19 08:00 Calcium 8.9 mg/dL (8.5-10.1) 08/03/19 08:00 Total Bilirubin 0.2 mg/dL (0.2-1) 08/03/19 08:00 AST 14 U/L (15-37) L 08/03/19 08:00 ALT 11 U/L (13-61) L 08/03/19 08:00 Alkaline Phosphatase 85 U/L (45-117) 08/03/19 08:00 Total Protein 6.0 g/dl (6.4-8.2) L 08/03/19 08:00 Albumin 2.8 g/dl (3.4-5.0) L 08/03/19 08:00 POC Urine HCG, Qual Negative 08/02/19 17:48 lab noted long history of hiv low wbc Assessment: 08/06/19 15:30 alcohol withdrawal Plan: librium regimen
[2019-08-06] MEDS: chlordiazePOXIDE HCL 10 MG CAPSULE PO PRN ×2 (13:28→19:26)
[2019-08-06] MEDS: ACETAMINOPHEN 325 MG TABLET (FP) PO PRN ×2 (13:30→22:43)
[2019-08-06] MEDS: THIAMINE HCL 100 MG TABLET (FP) PO SCH (22:42)
[2019-08-06] MEDS: MELATONIN 5 MG TABLETS PO PRN (22:44)
[2019-08-07] MEDS ORDERED: LORazepam 0.5 MG TABLET PO ONE (05:00)
[2019-08-07] MEDS: chlordiazePOXIDE HCL 10 MG CAPSULE PO SCH ×2 (05:18→16:42)
[2019-08-07] MEDS: PRENATAL VITAMINS W/ FOLIC ACID TABLET (FP) PO SCH (10:30)
[2019-08-07] MEDS: ASPIRIN 81 MG CHEWABLE TABLETS PO SCH (10:30)
[2019-08-07] MEDS: FAMOTIDINE 20 MG TABLET PO SCH ×2 (10:30→22:36)
--- NOTE | 2019-08-07 10:35 | PN ---
S CIWA - CIWA Score Nausea/Vomitin-No Nausea/No Vomiting Muscle Tremors: 2 Anxiety: 2 Agitation: 1-Slight > Activity Paroxysmal Sweats: 1-Minimal Palms Moist Orientation: 0-Oriented Tacttile Disturbances: 0-None Auditory Disturbances: 0-None Visual Disturbances: 0-None Headache: 0-None Present CIWA-Ar Total Score: 6 BHS Progress Note (SOAP) Subjective: 69 years old female admitted on 08/02/19 for alcohol withdrawal sx management treating with libirum detox regimen feeling better today requests to be seen by a psychiatrist for her long history of anxiety and depression patient denies suicidal homocidal ideation psychiatrist referral Objective: 08/07/19 10:37 Vital Signs Temperature 97.1 F L 08/07/19 09:08 Pulse Rate 83 08/07/19 09:08 Respiratory Rate 18 08/07/19 09:08 Blood Pressure 92/62 08/07/19 09:08 O2 Sat by Pulse Oximetry (%) Laboratory Last Values WBC 2.8 K/mm3 (4.0-10.0) L 08/03/19 08:00 RBC 3.42 M/mm3 (3.60-5.2) L 08/03/19 08:00 Hgb 10.6 GM/dL (10.7-15.3) L 08/03/19 08:00 Hct 32.1 % (32.4-45.2) L D 08/03/19 08:00 MCV 93.9 fl (80-96) 08/03/19 08:00 MCH 31.0 pg (25.7-33.7) 08/03/19 08:00 MCHC 33.0 g/dl (32.0-36.0) 08/03/19 08:00 RDW 14.9 % (11.6-15.6) 08/03/19 08:00 Plt Count 179 K/MM3 (134-434) 08/03/19 08:00 MPV 7.9 fl (7.5-11.1) D 08/03/19 08:00 Sodium 138 mmol/L (136-145) 08/03/19 08:00 Potassium 4.0 mmol/L (3.5-5.1) 08/03/19 08:00 Chloride 104 mmol/L (98-107) 08/03/19 08:00 Carbon Dioxide 26 mmol/L (21-32) 08/03/19 08:00 Anion Gap 9 MMOL/L (8-16) 08/03/19 08:00 BUN 15.2 mg/dL (7-18) 08/03/19 08:00 Creatinine 1.2 mg/dL (0.55-1.3) 08/03/19 08:00 Est GFR (CKD-EPI)AfAm 53.78 08/03/19 08:00 Est GFR (CKD-EPI)NonAf 46.40 08/03/19 08:00 Random Glucose 78 mg/dL (74-106) 08/03/19 08:00 Calcium 8.9 mg/dL (8.5-10.1) 08/03/19 08:00 Total Bilirubin 0.2 mg/dL (0.2-1) 08/03/19 08:00 AST 14 U/L (15-37) L 08/03/19 08:00 ALT 11 U/L (13-61) L 08/03/19 08:00 Alkaline Phosphatase 85 U/L (45-117) 08/03/19 08:00 Total Protein 6.0 g/dl (6.4-8.2) L 08/03/19 08:00 Albumin 2.8 g/dl (3.4-5.0) L 08/03/19 08:00 POC Urine HCG, Qual Negative 08/02/19 17:48 lab noted long history of hiv low wbc Assessment: 08/07/19 10:38 alcohol withdrawal Plan: librium regimen
[2019-08-07] MEDS: hydrOXYzine PAMOATE 25 MG CAPSULE (FP) PO PRN ×2 (14:40→22:36)
--- NOTE | 2019-08-07 17:03 | CONSULT ---
[facility] Psychiatric Consult - Data Date of interview: 08/07/19 Admission source: [facility] Identifying data: Revisit to [facility] and admission to [address] [place] [address] for this 69 y/o AA female self-referred for detoxification. DAINA issues : alcohol, cocaine, cannabis, phencyclidine. Patient is , a mother of seven, domiciled, unemployed and supported on [employer] funds. Substance Abuse History: Discussed with the patient. Details in current [facility] report as follows : Smoking history: Never smoked. Have you smoked in the past 12 months: No. Aproximately how many cigarettes per day: 0. If you are a former smoker, when did you quit?: 1988. Hx Chewing Tobacco Use: No. - Substances abused. Alcohol. Substance route: Oral. Frequency: Daily. Amount used: 2-3 PINTS VODKA and 4-5 beers. Age of first use: 15. Date of last use: 08/02/19. Cocaine. Substance route: Inhalation. Frequency: 1-3 times last 30 days. Amount used: $10. Age of first use: 63. Date of last use : 01/27/19. PCP. Substance route: Smoking. Frequency: 1-2 times per week. Amount used: $5. Age of first use: 64. Date of last use: 01/27/19. Crack. Substance route: Inhalation. Frequency: 3-6 times per week. Amount used: $10. Age of first use: 31. Date of last use: 07/31/19 Medical History: Medical profile is remarkable for HIV infection since 1993 ( non compliant with ART medications), hepatitis C (treated), bronchial asthma, GERD, diabetes mellitus, dyslipidemia, arthritis, anemia and history of fracture of left wrist (2016). Psychiatric History: Patient denies history of psychiatric hospitalizations. Onset of emotional disturbances : 2005 (precipitated by of her 12 y/o daughter). Patient was incarcerated at the time ([facility]). She got diagnosed with MDD, years ago, and she used to be prescribed prozac + abilify. Ms Evans is chronically non-adherent to medications + OPD care. She denies any affiliation with mental health care providers. Has not taken psychotropic medications for months. Patient denies history of suicide attempts. Physical/Sexual Abuse/Trauma History: No reported history of physical or sexual abuse. Past traumas : of daughter in 2006 + of two siblings (one brother and one sister). Additional Comment: Urine drug screen results: THC-Marijuana, JUNE-Cocaine, BZO- Benzodiazepines. Noted. Mental Status Exam - Mental Status Exam Alert and Oriented to: Time, Place, Person Cognitive Function: Good Patient Appearance: Unkempt, Disheveled (poor oral hygiene) Mood: Withdrawn, Hopeful Affect: Mood Congruent, Constricted Patient Behavior: Fatigued, Appropriate, Cooperative Speech Pattern: Clear, Appropriate Voice Loudness: Normal Thought Process: Intact, Goal Oriented Thought Disorder: Not Present Hallucinations: Denies Suicidal Ideation: Denies Homicidal Ideation: Denies Insight/Judgement: Poor Sleep: Well Appetite: Good Gait/Station: Normal Psychiatric Findings - Problem List ([place] 1, 2,3) (1) Alcohol dependence with withdrawal Current Visit: Yes Status: Acute Qualifiers: Complication of substance-induced condition: uncomplicated Qualified Code(s ): F10.230 - Alcohol dependence with withdrawal, uncomplicated (2) PCP (phencyclidine) abuse Current Visit: Yes Status: Chronic (3) Cocaine use disorder Current Visit: Yes Status: Chronic (4) Substance induced mood disorder Current Visit: Yes Status: Chronic - Initial Treatment Plan Initial Treatment Plan: Psychoeducation. Sleep hygiene. Detoxification. Support. Observation.
[2019-08-07] MEDS: THIAMINE HCL 100 MG TABLET (FP) PO SCH (22:36)
[2019-08-07] MEDS: MELATONIN 5 MG TABLETS PO PRN (22:37)
[2019-08-08] MEDS ORDERED: chlordiazePOXIDE HCL 10 MG CAPSULE PO ONE (05:00)
[2019-08-08] MEDS: chlordiazePOXIDE HCL 10 MG CAPSULE PO SCH (06:04)
[2019-08-08] MEDS: PRENATAL VITAMINS W/ FOLIC ACID TABLET (FP) PO SCH (09:22)
[2019-08-08] MEDS: FAMOTIDINE 20 MG TABLET PO SCH ×2 (09:22→21:30)
[2019-08-08] MEDS: ASPIRIN 81 MG CHEWABLE TABLETS PO SCH (09:22)
--- NOTE | 2019-08-08 10:54 | HP ---
[facility] Rehab Assess/Revision - Admission History Admitted to Rehab from: Ludivina Swift Date of Admission to Rehab: 08/08/19 - Vital signs Vital Signs: Vital Signs Period Temp Pulse Resp BP Sys/Schumacher Pulse Ox Last 24 Hr 96.8 F-98.4 F 72-86 16-18 92-101/64-70 - Findings Detox History & Physical reviewed: Yes Concur with findings: Yes Comments/Additional Findings: transferred from detox to rehab admission as per protocol Inpatient Rehab Admission - Rehab Decision to Admit Inpatient rehab admission?: Yes - Initial Determination Are CD services needed?: Yes Free of communicable disease: Yes Not in need of hospitalization: Yes - Rehab Admission Criteria Previous failed treatment: Yes Poor recovery environment: Yes Comorbidities: Yes Lacks judgement: Yes Patient is meeting Inpatient Rehab admission criteria:: Yes
--- NOTE | 2019-08-08 12:44 | PN ---
[facility] Progress Note Note: Admitted to [facility], known to this provider. Problem list, labs, home medications reviewed. HIV regimen ordered. No safety issues in previous admissions, Vital Signs Period Temp Pulse Resp BP Sys/Schumacher Pulse Ox Last 24 Hr 96.8 F-98.4 F 72-86 16-18 92-101/64-70 General: no apparent distress HEENTM: normocephalic Neck: supple, Lungs: clear Heart: s1 s2 ABD: +BS A/P: continue substance use treatment, maintain safety.
[2019-08-08] MEDS: THIAMINE HCL 100 MG TABLET (FP) PO SCH (21:29)
[2019-08-08] MEDS: MELATONIN 5 MG TABLETS PO PRN (21:30)
[2019-08-08] MEDS: MAG HYDROX/AL HYDROX/SIMETH 30 ML UNIT-DOSE CUP PO PRN (22:55)
[2019-08-09] MEDS ORDERED: ATAZANAVIR SO4 300 MG CAPSULE PO SCH (08:00)
[2019-08-09] MEDS ORDERED: PT OWN MED DRAWER 7, Y5N ONE ×2 (09:22→10:33)
[2019-08-09] MEDS: PRENATAL VITAMINS W/ FOLIC ACID TABLET (FP) PO SCH (10:23)
[2019-08-09] MEDS: FAMOTIDINE 20 MG TABLET PO SCH ×2 (10:23→21:48)
[2019-08-09] MEDS: ASPIRIN 81 MG CHEWABLE TABLETS PO SCH (10:24)
[2019-08-09] MEDS: RITONAVIR 100 MG TABLET PO SCH (10:24)
[2019-08-09] MEDS: SULFAMETHOXAZOLE/TRIMETHOPRIM 800MG/160MG D.S. TABLET PO SCH (10:24)
[2019-08-09] MEDS: EMTRICITABINE 200MG/TENOFOVIR 300MG PO SCH (10:24)
[2019-08-09] MEDS: ATAZANAVIR SO4 300 MG CAPSULE PO SCH (10:25)
[2019-08-09] MEDS: ACETAMINOPHEN 325 MG TABLET (FP) PO PRN (16:46)
[2019-08-09] MEDS: MAG HYDROX/AL HYDROX/SIMETH 30 ML UNIT-DOSE CUP PO PRN (18:59)
[2019-08-09] MEDS: THIAMINE HCL 100 MG TABLET (FP) PO SCH (21:47)
[2019-08-09] MEDS: MELATONIN 5 MG TABLETS PO PRN (21:48)
[2019-08-10] MEDS: MAG HYDROX/AL HYDROX/SIMETH 30 ML UNIT-DOSE CUP PO PRN ×2 (00:49→15:59)
[2019-08-10] MEDS: PRENATAL VITAMINS W/ FOLIC ACID TABLET (FP) PO SCH (10:14)
[2019-08-10] MEDS: ASPIRIN 81 MG CHEWABLE TABLETS PO SCH (10:14)
[2019-08-10] MEDS: FAMOTIDINE 20 MG TABLET PO SCH ×2 (10:14→21:40)
[2019-08-10] MEDS: SULFAMETHOXAZOLE/TRIMETHOPRIM 800MG/160MG D.S. TABLET PO SCH (10:14)
[2019-08-10] MEDS: ATAZANAVIR SO4 300 MG CAPSULE PO SCH (10:15)
[2019-08-10] MEDS: RITONAVIR 100 MG TABLET PO SCH (10:15)
[2019-08-10] MEDS: EMTRICITABINE 200MG/TENOFOVIR 300MG PO SCH (10:15)
[2019-08-10] MEDS: guaiFENesin/D-METHORPHAN HB 10 ML UNIT-DOSE CUPS PO PRN (10:17)
[2019-08-10] MEDS ORDERED: PT OWN MED DRAWER 7, Y5N ONE (10:19)
[2019-08-10] MEDS: THIAMINE HCL 100 MG TABLET (FP) PO SCH (21:40)
[2019-08-10] MEDS: MELATONIN 5 MG TABLETS PO PRN (21:40)
[2019-08-11] MEDS ORDERED: PT OWN MED DRAWER 7, Y5N ONE (08:52)
[2019-08-11] MEDS: ATAZANAVIR SO4 300 MG CAPSULE PO SCH (10:00)
[2019-08-11] MEDS: SULFAMETHOXAZOLE/TRIMETHOPRIM 800MG/160MG D.S. TABLET PO SCH (10:00)
[2019-08-11] MEDS: ASPIRIN 81 MG CHEWABLE TABLETS PO SCH (10:00)
[2019-08-11] MEDS: FAMOTIDINE 20 MG TABLET PO SCH ×2 (10:00→21:47)
[2019-08-11] MEDS: EMTRICITABINE 200MG/TENOFOVIR 300MG PO SCH (10:00)
[2019-08-11] MEDS: PRENATAL VITAMINS W/ FOLIC ACID TABLET (FP) PO SCH (10:00)
[2019-08-11] MEDS: RITONAVIR 100 MG TABLET PO SCH (10:01)
[2019-08-11] MEDS: ACETAMINOPHEN 325 MG TABLET (FP) PO PRN (12:04)
[2019-08-11] MEDS: MAG HYDROX/AL HYDROX/SIMETH 30 ML UNIT-DOSE CUP PO PRN (19:22)
[2019-08-11] MEDS: MELATONIN 5 MG TABLETS PO PRN (21:44)
[2019-08-11] MEDS: THIAMINE HCL 100 MG TABLET (FP) PO SCH (21:44)
[2019-08-12] MEDS: MAG HYDROX/AL HYDROX/SIMETH 30 ML UNIT-DOSE CUP PO PRN ×2 (00:28→20:29)
[2019-08-12] MEDS ORDERED: PT OWN MED DRAWER 7, Y5N ONE (08:47)
[2019-08-12] MEDS: SULFAMETHOXAZOLE/TRIMETHOPRIM 800MG/160MG D.S. TABLET PO SCH (09:37)
[2019-08-12] MEDS: ATAZANAVIR SO4 300 MG CAPSULE PO SCH (09:38)
[2019-08-12] MEDS: EMTRICITABINE 200MG/TENOFOVIR 300MG PO SCH (09:38)
[2019-08-12] MEDS: ASPIRIN 81 MG CHEWABLE TABLETS PO SCH (09:38)
[2019-08-12] MEDS: RITONAVIR 100 MG TABLET PO SCH (09:38)
[2019-08-12] MEDS: PRENATAL VITAMINS W/ FOLIC ACID TABLET (FP) PO SCH (09:38)
[2019-08-12] MEDS: FAMOTIDINE 20 MG TABLET PO SCH ×2 (09:38→21:58)
[2019-08-12] MEDS: THIAMINE HCL 100 MG TABLET (FP) PO SCH (21:57)
[2019-08-12] MEDS: MELATONIN 5 MG TABLETS PO PRN (21:58)
[2019-08-12] MEDS: guaiFENesin/D-METHORPHAN HB 10 ML UNIT-DOSE CUPS PO PRN (22:01)
[2019-08-13] MEDS: ACETAMINOPHEN 325 MG TABLET (FP) PO PRN (06:41)
[2019-08-13 07:14] VITALS: TEMP 97.5
[2019-08-13] MEDS ORDERED: PT OWN MED DRAWER 7, Y5N ONE (08:56)
[2019-08-13] MEDS: ASPIRIN 81 MG CHEWABLE TABLETS PO SCH (09:47)
[2019-08-13] MEDS: SULFAMETHOXAZOLE/TRIMETHOPRIM 800MG/160MG D.S. TABLET PO SCH (09:47)
[2019-08-13] MEDS: ATAZANAVIR SO4 300 MG CAPSULE PO SCH (09:47)
[2019-08-13] MEDS: PRENATAL VITAMINS W/ FOLIC ACID TABLET (FP) PO SCH (09:47)
[2019-08-13] MEDS: EMTRICITABINE 200MG/TENOFOVIR 300MG PO SCH (09:47)
[2019-08-13] MEDS: RITONAVIR 100 MG TABLET PO SCH (09:47)
[2019-08-13] MEDS: FAMOTIDINE 20 MG TABLET PO SCH ×2 (10:57→21:49)
[2019-08-13] MEDS: THIAMINE HCL 100 MG TABLET (FP) PO SCH (21:49)
[2019-08-14] MEDS: ACETAMINOPHEN 325 MG TABLET (FP) PO PRN (06:49)
[2019-08-14 07:25] VITALS: BP 109/73; PULSE 78
[2019-08-14] MEDS ORDERED: PT OWN MED DRAWER 7, Y5N ONE ×2 (09:10→10:37)
[2019-08-14] MEDS: ASPIRIN 81 MG CHEWABLE TABLETS PO SCH (10:32)
[2019-08-14] MEDS: FAMOTIDINE 20 MG TABLET PO SCH (10:32)
[2019-08-14] MEDS: PRENATAL VITAMINS W/ FOLIC ACID TABLET (FP) PO SCH (10:32)
[2019-08-14] MEDS: ATAZANAVIR SO4 300 MG CAPSULE PO SCH (10:32)
[2019-08-14] MEDS: SULFAMETHOXAZOLE/TRIMETHOPRIM 800MG/160MG D.S. TABLET PO SCH (10:32)
[2019-08-14] MEDS: RITONAVIR 100 MG TABLET PO SCH (10:33)
[2019-08-14] MEDS: EMTRICITABINE 200MG/TENOFOVIR 300MG PO SCH (10:33)
[2019-08-14] MEDS: guaiFENesin/D-METHORPHAN HB 10 ML UNIT-DOSE CUPS PO PRN (10:35)
--- NOTE | 2019-08-14 15:29 | DS ---
[facility] Rehab Discharge Summary - [facility] Rehab Discharge Summary Admission Date: 08/02/19 Discharge Date: 08/14/19 - History Present History: Alcohol dependence, Cocaine dependence, PCP dependence Additional Comments: Pt is a 69 y/o female with a hx of DAINA admitted to rehab and requesting early discharge today for family reasons, Pt has been [place] [facility] [place] [address] [place]. Pt reports she has not follow up with primary care recently and has been encouraged to follow up with her primary care provider for the management of her comorbid conditions. Pertinent Past History: Asthma Anemia HIV+ GERD Hep C Arthritis HLD Obesity - Discharge Physical Exam Vital Signs: Vital Signs Temperature 97.5 F L 08/14/19 07:24 Pulse Rate 78 08/14/19 07:24 Respiratory Rate 18 08/14/19 07:24 Blood Pressure 109/73 08/14/19 07:24 O2 Sat by Pulse Oximetry (%) Alert o x 3,denies s/h/i nad oob ambulating with staedy gait cardiac:s1 s2, rrr lungs:cta,johnathan. abdomen:soft,+bs,nt,nd extremities/skin:no edema,skin intact. Pertinent Admission Physical Exam Findings: Laboratory Tests 08/02/19 08/03/19 08/03/19 17:48 08:00 08:00 WBC 2.8 L RBC 3.42 L Hgb 10.6 L Hct 32.1 L D MCV 93.9 MCH 31.0 MCHC 33.0 RDW 14.9 Plt Count 179 MPV 7.9 D Sodium 138 Potassium 4.0 Chloride 104 Carbon Dioxide 26 Anion Gap 9 BUN 15.2 Creatinine 1.2 Est GFR (CKD-EPI)AfAm 53.78 Est GFR (CKD-EPI)NonAf 46.40 Random Glucose 78 Calcium 8.9 Total Bilirubin 0.2 AST 14 L ALT 11 L Alkaline Phosphatase 85 Total Protein 6.0 L Albumin 2.8 L POC Urine HCG, Qual Negative - Treatment Discharge Condition: Discharge condition good - Medication Discharge Medications: Ambulatory Orders Methocarbamol [Robaxin -] 500 mg PO BID PRN 12/02/18 Ranitidine HCl [Zantac] 150 mg PO BID 05/20/19 Sulfamethoxazole/Trimethoprim [Sulfamethoxazole-Tmp Ds Tablet] 1 each PO DAILY # 30 tablet 05/22/19 Albuterol Sulfate Inhaler - [Ventolin HFA Inhaler -] 2 inh IH Q4H PRN #1 inhaler 08/14/19 Aspirin [ASA -] 81 mg PO DAILY #30 tab.chew 08/14/19 Atazanavir [Reyataz -] 300 mg PO DAILY@0800 #30 capsule 08/14/19 Emtricitabine/Tenofovir [Truvada -] 1 tab PO DAILY #30 tablet 08/14/19 Ritonavir [Norvir -] 100 mg PO DAILY@0800 #30 tab 08/14/19 Sulfamethoxazole/Trimethoprim [Bactrim DS -] 1 each PO DAILY #30 tablet - Medication-Assisted Treatment (MAT) Medication-Assisted Treatment (MAT): No - Discharge Instructions Diet, activity, other medical instructions: Diet:Regular Activity: oob ad mary alice Other medical instructions:follow up with [facility] as scheduled for CD aftercare. Follow up with primary care at [facility] for primary care within 1 week after discharge. - Diagnosis (1) Alcohol dependence Status: Chronic Qualifiers: Substance use status: uncomplicated Qualified Code(s): F10.20 - Alcohol dependence, uncomplicated (2) Anemia Status: Chronic (3) Asthma Status: Chronic (4) Asthma Status: Chronic Qualifiers: Asthma severity: mild Asthma persistence: intermittent Asthma complication type: uncomplicated Qualified Code(s): J45.20 - Mild intermittent asthma, uncomplicated (5) Cocaine use disorder Status: Chronic (6) GERD (gastroesophageal reflux disease) Status: Chronic Qualifiers: Esophagitis presence: without esophagitis Qualified Code(s): K21.9 - Gastro -esophageal reflux disease without esophagitis (7) HIV (human immunodeficiency virus infection) Status: Chronic Qualifiers: HIV symptom status: unspecified Qualified Code(s): B20 - Human immunodeficiency virus [HIV] disease (8) HLD (hyperlipidemia) Status: Chronic Qualifiers: Hyperlipidemia type: unspecified Qualified Code(s): E78.5 - Hyperlipidemia , unspecified (9) Hepatitis C Status: Chronic Qualifiers: Viral hepatitis chronicity: chronic Hepatic coma status: without hepatic coma Qualified Code(s): B18.2 - Chronic viral hepatitis C (10) Hypertension Status: Chronic Qualifiers: Hypertension type: essential hypertension Qualified Code(s): I10 - Essential (primary) hypertension (11) PCP dependence Status: Chronic (12) Poor dentition Status: Chronic - Follow-up Referral Minutes to complete discharge: 25 - AMA Did Patient Leave Against Medical Advice: No Additional Comments: Courtesy Rx electronically sent to [place] pharmacy for patient to greens picker after discharge. Pt reminded to follow up with primary care for future meds/medical management.
== END 2019-08-14 16:10 | disposition home or self-care (01) | DRG 895 ==
LOC: YASAS 14:51 → Y3N 18:07 → Y3E 08-08 11:25
PROVIDERS: ADMIT Allergy & Immunology; ATTEND Neuromusculoskeletal Medicine & OMM
PROC: HZ2ZZZZ Detoxification Services for Substance Abuse Treatment (ICD-10-PCS; principal; 2019-08-02)
PROC: HZ42ZZZ Group Counseling for Substance Abuse Treatment, Cognitive-Behavioral (ICD-10-PCS; 2019-08-08)
DX: F10.230 Alcohol dependence with withdrawal, uncomplicated (principal); F14.20 Cocaine dependence, uncomplicated; F16.20 Hallucinogen dependence, uncomplicated; F19.24 Other psychoactive substance dependence with psychoactive substance-induced mood disorder; D64.9 Anemia, unspecified; Z21 Asymptomatic human immunodeficiency virus [HIV] infection status; J45.909 Unspecified asthma, uncomplicated; K21.9 Gastro-esophageal reflux disease without esophagitis; E78.5 Hyperlipidemia, unspecified; B18.2 Chronic viral hepatitis C; K08.9 Disorder of teeth and supporting structures, unspecified; E11.9 Type 2 diabetes mellitus without complications; Z91.14 Patient's other noncompliance with medication regimen; M19.90 Unspecified osteoarthritis, unspecified site; K08.89 Other specified disorders of teeth and supporting structures; R79.89 Other specified abnormal findings of blood chemistry; Z91.018 Allergy to other foods
CPT/HCPCS: 36415; 80053; 81025; 85027; G0008; Q2036

== ENCOUNTER 2020-02-19 12:12 | Inpatient (IN) | payer OTHER ==
--- NOTE | 2020-02-19 12:28 | BHS.RME ---
Substance Use & Tx History - Substance Use History Alcohol Substance amount: 2-3 PINTS VODKA Frequency of use: Daily Substance route: Oral Date of Last Use: 02/19/20 (8AM) Cocaine- Powder Substance amount: $10 Frequency of use: Once a month Substance route: Inhalation (ex: sniffing or snorting) Date of Last Use: 01/30/20 Cocaine-Crack Substance amount: $10 Frequency of use: Less than 3 times per week Substance route: Inhalation (ex: sniffing or snorting) Date of Last Use: 02/13/20 PCP Substance amount: $5 Frequency of use: Once a month Substance route: Smoking Date of Last Use: 02/18/20 Physical/Psych/Mental Status - Behavior General Behavior: Increased activity (restlessness, agitation) Eye Contact: Normal - Cooperativeness Cooperativeness: Cooperative - Thinking Thought Processes: Tight, Logical, Goal Directed - Physical Health Problems Is patient presently having any pain?: No Does patient presently have any injuries (include location): No Does patient currently have a fever: No Is patient : No CIWA Nausea/Vomitin-No Nausea/No Vomiting Muscle Tremors: 2 Anxiety: 3 Agitation: 1-Slight > Activity Paroxysmal Sweats: 1-Minimal Palms Moist Orientation: 0-Oriented Tacttile Disturbances: 0-None Auditory Disturbances: 0-None Visual Disturbances: 0-None Headache: 0-None Present CIWA-Ar Total Score: 7
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
[2020-02-19] MEDS ORDERED: MAGNESIUM CITRATE 300 ML BOTTLE PO PRN (13:39)
[2020-02-19] MEDS ORDERED: BISMUTH SUBSALICYLATE 262 MG/15 ML BTL PO PRN (13:39)
[2020-02-19] MEDS ORDERED: ONDANSETRON *ODT* 4 MG TABLET SL ONE (13:39)
[2020-02-19] MEDS ORDERED: IBUPROFEN 400 MG TABLET (FP) PO PRN (13:39)
[2020-02-19] MEDS ORDERED: NICOTINE POLACRILEX 2 MG GUM BUC PRN (13:39)
[2020-02-19] MEDS ORDERED: MAGNESIUM HYDROX 2400MG/30ML ORAL SUSPENSION 30 ML CUP PO PRN (13:39)
[2020-02-19] MEDS ORDERED: METHOCARBAMOL 500 MG TABLET PO PRN (13:39)
[2020-02-19] MEDS ORDERED: MENTHOL/PHENOL 1 EACH UD MM PRN (13:39)
[2020-02-19] MEDS ORDERED: ACETAMINOPHEN 325 MG TABLET (FP) PO PRN ×2 (13:39)
[2020-02-19] MEDS ORDERED: chlordiazePOXIDE HCL 25 MG CAPSULE PO PRN (13:42)
[2020-02-19] MEDS ORDERED: TUBERCULIN PPD 5 TU/0.1ML SYRINGE (IN PATIENT USE ONLY) ID ONE (13:42)
[2020-02-19 14:17] VITALS: BMI 28.0
[2020-02-19] MEDS: PRENATAL VITAMINS W/ FOLIC ACID TABLET (FP) PO SCH (15:30)
[2020-02-19] MEDS: NICOTINE 7 MG/24 HOURS TOPICAL PATCH TD SCH (15:30)
[2020-02-19] MEDS: hydrOXYzine PAMOATE 25 MG CAPSULE (FP) PO SCH ×3 (15:30→22:11)
[2020-02-19] MEDS: MAG HYDROX/AL HYDROX/SIMETH 30 ML UNIT-DOSE CUP PO PRN ×2 (15:33→22:13)
[2020-02-19] MEDS: chlordiazePOXIDE HCL 25 MG CAPSULE PO SCH ×2 (17:38→22:11)
[2020-02-19] MEDS: THIAMINE HCL 100 MG TABLET (FP) PO SCH (22:11)
[2020-02-19] MEDS: MELATONIN 5 MG TABLETS PO SCH (22:12)
[2020-02-20] MEDS: hydrOXYzine PAMOATE 25 MG CAPSULE (FP) PO SCH ×2 (05:38→10:10)
[2020-02-20] MEDS: chlordiazePOXIDE HCL 25 MG CAPSULE PO SCH ×4 (05:38→22:14)
[2020-02-20] MEDS: PRENATAL VITAMINS W/ FOLIC ACID TABLET (FP) PO SCH (10:09)
[2020-02-20] MEDS: NICOTINE 7 MG/24 HOURS TOPICAL PATCH TD SCH (10:09)
[2020-02-20] MEDS: MAG HYDROX/AL HYDROX/SIMETH 30 ML UNIT-DOSE CUP PO PRN ×2 (10:11→19:39)
--- NOTE | 2020-02-20 11:04 | PN ---
Teaching Attending Note Name of Resident: Todd Rodriguez ATTENDING PHYSICIAN STATEMENT I saw and evaluated the patient. I reviewed the resident's note and discussed the case with the resident. I agree with the resident's findings and plan as documented. SUBJECTIVE: OBJECTIVE: ASSESSMENT AND PLAN:
[2020-02-20 11:15] LABS: HEMATOCRIT 37.2 % (32.4-45.2); HEMOGLOBIN 11.8 GM/dL (10.7-15.3); MCH 27.7 pg (25.7-33.7); MCHC 31.8 g/dl (32.0-36.0); MEAN CELL VOLUME 87.2 fl (80-96); MEAN PLT VOLUME 9.1 fl (7.5-11.1); PLATELET COUNT 200 K/MM3 (134-434); RBC 4.26 M/mm3 (3.60-5.2); RDW 17.3 % (11.6-15.6); WHITE BLOOD COUNT 2.9 K/mm3 (4.0-10.0)
[2020-02-20 11:31] LABS: ALBUMIN 3.4 g/dl (3.4-5.0); BLOOD UREA NITROGEN 11.5 mg/dL (7-18); CALCIUM 9.8 mg/dL (8.5-10.1); CREATININE 1.2 mg/dL (0.55-1.3); POTASSIUM 4.1 mmol/L (3.5-5.1)
[2020-02-20] MEDS ORDERED: ALBUTEROL SO4 HFA INHALER IH PRN (11:31)
[2020-02-20 11:33] LABS: BILIRUBIN,TOTAL 0.4 mg/dL (0.2-1); TOT PROT 8.3 g/dl (6.4-8.2)
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
[2020-02-20] MEDS ORDERED: RITONAVIR 100 MG TABLET PO ONE (12:00)
[2020-02-20] MEDS ORDERED: ATAZANAVIR SO4 300 MG CAPSULE PO ONE (12:00)
[2020-02-20] MEDS ORDERED: EMTRICITABINE 200MG/TENOFOVIR 300MG PO ONE (12:00)
[2020-02-20] MEDS: CIPROFLOXACIN HCL 0.3% OPHTH 2.5ML BOTTLE OU SCH ×3 (14:12→22:15)
[2020-02-20] MEDS: hydrOXYzine PAMOATE 25 MG CAPSULE (FP) PO PRN ×2 (17:45→22:14)
[2020-02-20] MEDS: THIAMINE HCL 100 MG TABLET (FP) PO SCH (22:14)
[2020-02-20] MEDS: MELATONIN 5 MG TABLETS PO SCH (22:15)
[2020-02-21] MEDS: chlordiazePOXIDE HCL 25 MG CAPSULE PO SCH ×4 (05:41→22:05)
[2020-02-21] MEDS: CIPROFLOXACIN HCL 0.3% OPHTH 2.5ML BOTTLE OU SCH ×5 (05:42→22:05)
[2020-02-21] MEDS: ATAZANAVIR SO4 300 MG CAPSULE PO SCH (07:21)
[2020-02-21] MEDS: RITONAVIR 100 MG TABLET PO SCH (07:21)
[2020-02-21] MEDS: EMTRICITABINE 200MG/TENOFOVIR 300MG PO SCH (07:21)
[2020-02-21] MEDS: ASPIRIN 81 MG CHEWABLE TABLETS PO SCH (10:38)
[2020-02-21] MEDS: SULFAMETHOXAZOLE/TRIMETHOPRIM 800MG/160MG D.S. TABLET PO SCH (10:38)
[2020-02-21] MEDS: PRENATAL VITAMINS W/ FOLIC ACID TABLET (FP) PO SCH (10:38)
[2020-02-21] MEDS: NICOTINE 7 MG/24 HOURS TOPICAL PATCH TD SCH (10:39)
[2020-02-21] MEDS: hydrOXYzine PAMOATE 25 MG CAPSULE (FP) PO PRN (10:43)
[2020-02-21] MEDS: MAG HYDROX/AL HYDROX/SIMETH 30 ML UNIT-DOSE CUP PO PRN ×2 (10:44→23:54)
--- NOTE | 2020-02-21 11:19 | PN ---
S CIWA - CIWA Score Nausea/Vomitin-No Nausea/No Vomiting Muscle Tremors: 3 Anxiety: 2 Agitation: 2 Paroxysmal Sweats: 2 Orientation: 0-Oriented Tacttile Disturbances: 0-None Auditory Disturbances: 0-None Visual Disturbances: 0-None Headache: 0-None Present CIWA-Ar Total Score: 9 BHS Progress Note (SOAP) Subjective: sweats mild shakes interrupted sleep my eyes are getting better Objective: 02/21/20 11:12 Vital Signs Temperature 97.1 F L 02/21/20 08:35 Pulse Rate 79 02/21/20 08:35 Respiratory Rate 16 02/21/20 08:35 Blood Pressure 98/70 02/21/20 09:51 O2 Sat by Pulse Oximetry (%) 99 02/21/20 05:29 Laboratory Tests 02/19/20 02/20/20 02/20/20 12:55 05:55 05:55 WBC 2.9 L RBC 4.26 Hgb 11.8 Hct 37.2 D MCV 87.2 MCH 27.7 D MCHC 31.8 L RDW 17.3 H Plt Count 200 MPV 9.1 D Sodium 141 Potassium 4.1 Chloride 106 Carbon Dioxide 24 Anion Gap 11 BUN 11.5 Creatinine 1.2 Est GFR (CKD-EPI)AfAm 53.78 Est GFR (CKD-EPI)NonAf 46.40 Random Glucose 78 Calcium 9.8 Total Bilirubin 0.4 AST 37 ALT 19 Alkaline Phosphatase 87 Total Protein 8.3 H Albumin 3.4 Syphilis Serology Non-reactive aaox3 ambulating no acute distress Assessment: 02/21/20 11:12 withdrawals Plan: continue detox increase fluids continue cipro and eye wash as explained and pt understands
[2020-02-21] MEDS: THIAMINE HCL 100 MG TABLET (FP) PO SCH (22:05)
[2020-02-21] MEDS: MELATONIN 5 MG TABLETS PO PRN (22:06)
[2020-02-22] MEDS ORDERED: chlordiazePOXIDE HCL 10 MG CAPSULE PO PRN
[2020-02-22] MEDS: chlordiazePOXIDE HCL 10 MG CAPSULE PO SCH ×4 (05:46→22:09)
[2020-02-22] MEDS: CIPROFLOXACIN HCL 0.3% OPHTH 2.5ML BOTTLE OU SCH ×5 (05:47→22:09)
[2020-02-22] MEDS: MAG HYDROX/AL HYDROX/SIMETH 30 ML UNIT-DOSE CUP PO PRN ×2 (05:51→17:30)
[2020-02-22] MEDS: EMTRICITABINE 200MG/TENOFOVIR 300MG PO SCH (07:31)
[2020-02-22] MEDS: ATAZANAVIR SO4 300 MG CAPSULE PO SCH (07:32)
[2020-02-22] MEDS: RITONAVIR 100 MG TABLET PO SCH (07:32)
--- NOTE | 2020-02-22 09:14 | PN ---
[facility] CIWA - CIWA Score Nausea/Vomitin-No Nausea/No Vomiting Muscle Tremors: 2 Anxiety: 1-Mildly Anxious Agitation: 2 Paroxysmal Sweats: 2 Orientation: 0-Oriented Tacttile Disturbances: 0-None Auditory Disturbances: 0-None Visual Disturbances: 0-None Headache: 0-None Present CIWA-Ar Total Score: 7 S Progress Note (SOAP) Subjective: sweats mild shakes interrupted sleep eye are getter better Objective: 02/22/20 09:13 Vital Signs Temperature 97.3 F L 02/22/20 05:34 Pulse Rate 69 02/22/20 05:34 Respiratory Rate 20 02/22/20 05:34 Blood Pressure 99/66 02/22/20 05:34 O2 Sat by Pulse Oximetry (%) 96 02/22/20 05:34 aaox3 ambulating no acute distress Assessment: 02/22/20 09:13 withdrawals Plan: continue detox increase fluids continue with eye drops ABX
[2020-02-22] MEDS ORDERED: MASKS NR ONE (09:22)
[2020-02-22] MEDS: SULFAMETHOXAZOLE/TRIMETHOPRIM 800MG/160MG D.S. TABLET PO SCH (10:12)
[2020-02-22] MEDS: PRENATAL VITAMINS W/ FOLIC ACID TABLET (FP) PO SCH (10:12)
[2020-02-22] MEDS: ASPIRIN 81 MG CHEWABLE TABLETS PO SCH (10:12)
[2020-02-22] MEDS: NICOTINE 7 MG/24 HOURS TOPICAL PATCH TD SCH (10:13)
[2020-02-22] MEDS: THIAMINE HCL 100 MG TABLET (FP) PO SCH (22:09)
[2020-02-22] MEDS: MELATONIN 5 MG TABLETS PO PRN (22:09)
[2020-02-23] MEDS: chlordiazePOXIDE HCL 10 MG CAPSULE PO SCH ×2 (05:39→18:05)
[2020-02-23] MEDS: CIPROFLOXACIN HCL 0.3% OPHTH 2.5ML BOTTLE OU SCH ×5 (05:40→21:37)
[2020-02-23] MEDS: RITONAVIR 100 MG TABLET PO SCH (07:30)
[2020-02-23] MEDS: EMTRICITABINE 200MG/TENOFOVIR 300MG PO SCH (07:30)
[2020-02-23] MEDS: ATAZANAVIR SO4 300 MG CAPSULE PO SCH (07:31)
[2020-02-23] MEDS: PRENATAL VITAMINS W/ FOLIC ACID TABLET (FP) PO SCH (10:20)
[2020-02-23] MEDS: SULFAMETHOXAZOLE/TRIMETHOPRIM 800MG/160MG D.S. TABLET PO SCH (10:20)
[2020-02-23] MEDS: ASPIRIN 81 MG CHEWABLE TABLETS PO SCH (10:20)
[2020-02-23] MEDS: NICOTINE 7 MG/24 HOURS TOPICAL PATCH TD SCH (10:20)
[2020-02-23] MEDS: MAG HYDROX/AL HYDROX/SIMETH 30 ML UNIT-DOSE CUP PO PRN ×2 (11:07→18:05)
[2020-02-23] MEDS ORDERED: FAMOTIDINE 20 MG TABLET PO ONE (14:33)
--- NOTE | 2020-02-23 14:38 | PN ---
S CIWA - CIWA Score Nausea/Vomitin-No Nausea/No Vomiting Muscle Tremors: 2 Anxiety: 1-Mildly Anxious Agitation: 1-Slight > Activity Paroxysmal Sweats: 1-Minimal Palms Moist Orientation: 0-Oriented Tacttile Disturbances: 0-None Auditory Disturbances: 0-None Visual Disturbances: 0-None Headache: 0-None Present CIWA-Ar Total Score: 5 BHS Progress Note (SOAP) Subjective: Complaining of mild tremors, anxiety and sweats. Objective: 02/23/20 14:37 Vital Signs 02/23/20 02/23/20 08:52 12:59 Temperature 97.1 F L 97.3 F L Pulse Rate 73 76 Respiratory 18 16 Rate Blood Pressure 104/59 L 103/67 O2 Sat by Pulse 97 Oximetry (%) Laboratory Last Values WBC 2.9 K/mm3 (4.0-10.0) L 02/20/20 05:55 RBC 4.26 M/mm3 (3.60-5.2) 02/20/20 05:55 Hgb 11.8 GM/dL (10.7-15.3) 02/20/20 05:55 Hct 37.2 % (32.4-45.2) D 02/20/20 05:55 MCV 87.2 fl (80-96) 02/20/20 05:55 MCH 27.7 pg (25.7-33.7) D 02/20/20 05:55 MCHC 31.8 g/dl (32.0-36.0) L 02/20/20 05:55 RDW 17.3 % (11.6-15.6) H 02/20/20 05:55 Plt Count 200 K/MM3 (134-434) 02/20/20 05:55 MPV 9.1 fl (7.5-11.1) D 02/20/20 05:55 Sodium 141 mmol/L (136-145) 02/20/20 05:55 Potassium 4.1 mmol/L (3.5-5.1) 02/20/20 05:55 Chloride 106 mmol/L (98-107) 02/20/20 05:55 Carbon Dioxide 24 mmol/L (21-32) 02/20/20 05:55 Anion Gap 11 MMOL/L (8-16) 02/20/20 05:55 BUN 11.5 mg/dL (7-18) 02/20/20 05:55 Creatinine 1.2 mg/dL (0.55-1.3) 02/20/20 05:55 Est GFR (CKD-EPI)AfAm 53.78 02/20/20 05:55 Est GFR (CKD-EPI)NonAf 46.40 02/20/20 05:55 Random Glucose 78 mg/dL (74-106) 02/20/20 05:55 Calcium 9.8 mg/dL (8.5-10.1) 02/20/20 05:55 Total Bilirubin 0.4 mg/dL (0.2-1) 02/20/20 05:55 AST 37 U/L (15-37) 02/20/20 05:55 ALT 19 U/L (13-61) 02/20/20 05:55 Alkaline Phosphatase 87 U/L (45-117) 02/20/20 05:55 Total Protein 8.3 g/dl (6.4-8.2) H 02/20/20 05:55 Albumin 3.4 g/dl (3.4-5.0) 02/20/20 05:55 Syphilis Serology Non-reactive (NONREACTIVE) 02/19/20 12:55 COVID-19 (SYED) Not detected (Not Detected) 02/19/20 14:15 Labs noted. Assessment: 02/23/20 14:37 Alert and oriented x3, in no acute respiratory distress. Full ROM, ambulatory on unit. Withdrawal symptoms. For D/C in AM. Plan: Continue detox protocol. D/C in AM
[2020-02-23] MEDS: hydrOXYzine PAMOATE 25 MG CAPSULE (FP) PO PRN ×2 (18:05→21:37)
[2020-02-23] MEDS: THIAMINE HCL 100 MG TABLET (FP) PO SCH (21:37)
[2020-02-23] MEDS: MELATONIN 5 MG TABLETS PO PRN (21:37)
[2020-02-24] MEDS ORDERED: chlordiazePOXIDE HCL 10 MG CAPSULE PO ONE (05:00)
[2020-02-24] MEDS: CIPROFLOXACIN HCL 0.3% OPHTH 2.5ML BOTTLE OU SCH ×2 (05:42→10:04)
[2020-02-24] MEDS: EMTRICITABINE 200MG/TENOFOVIR 300MG PO SCH (07:52)
[2020-02-24] MEDS: RITONAVIR 100 MG TABLET PO SCH (07:52)
[2020-02-24] MEDS: ATAZANAVIR SO4 300 MG CAPSULE PO SCH (07:52)
[2020-02-24 09:38] VITALS: BP 96/60; PULSE 74; TEMP 97.3
[2020-02-24] MEDS: SULFAMETHOXAZOLE/TRIMETHOPRIM 800MG/160MG D.S. TABLET PO SCH (10:02)
[2020-02-24] MEDS: PRENATAL VITAMINS W/ FOLIC ACID TABLET (FP) PO SCH (10:02)
[2020-02-24] MEDS: ASPIRIN 81 MG CHEWABLE TABLETS PO SCH (10:02)
[2020-02-24] MEDS: NICOTINE 7 MG/24 HOURS TOPICAL PATCH TD SCH (10:04)
--- NOTE | 2020-02-24 16:43 | DS ---
[facility] Detox Discharge Summary Admission Date: 02/19/20 Discharge Date: 02/24/20 - History Present History: Alcohol Dependence, Cocaine Dependence Additional Comments: Patient completed detox successfully and was discharged safely. Instructed to follow up with PCP within 1-2 weeks. Pertinent Past History: Asthma HIV (untreated) Hepatitis C (treated) GERD - Physical Exam Results Vital Signs: Vital Signs Temperature 97.3 F L 02/24/20 08:40 Pulse Rate 74 02/24/20 08:40 Respiratory Rate 19 02/24/20 08:40 Blood Pressure 96/60 02/24/20 08:40 O2 Sat by Pulse Oximetry (%) 97 02/24/20 05:37 Pertinent Admission Physical Exam Findings: Withdrawal sxs Laboratory Tests 02/19/20 02/19/20 02/20/20 12:55 14:15 05:55 WBC 2.9 L RBC 4.26 Hgb 11.8 Hct 37.2 D MCV 87.2 MCH 27.7 D MCHC 31.8 L RDW 17.3 H Plt Count 200 MPV 9.1 D Sodium Potassium Chloride Carbon Dioxide Anion Gap BUN Creatinine Est GFR (CKD-EPI)AfAm Est GFR (CKD-EPI)NonAf Random Glucose Calcium Total Bilirubin AST ALT Alkaline Phosphatase Total Protein Albumin Syphilis Serology Non-reactive COVID-19 (SYED) Not detected 02/20/20 05:55 WBC RBC Hgb Hct MCV MCH MCHC RDW Plt Count MPV Sodium 141 Potassium 4.1 Chloride 106 Carbon Dioxide 24 Anion Gap 11 BUN 11.5 Creatinine 1.2 Est GFR (CKD-EPI)AfAm 53.78 Est GFR (CKD-EPI)NonAf 46.40 Random Glucose 78 Calcium 9.8 Total Bilirubin 0.4 AST 37 ALT 19 Alkaline Phosphatase 87 Total Protein 8.3 H Albumin 3.4 Syphilis Serology COVID-19 ([facility]) Labs reviewed: noted with DEMI vs CKD (patient to follow up with PCP for managment, encouraged PO water hydration) - Treatment Hospital Course: Detox Protocol Followed, Detoxed Safely, Responded well, Discharged Condition Good - Medication Discharge Medications: Ambulatory Orders Albuterol Sulfate Inhaler - [Ventolin HFA Inhaler -] 2 inh IH Q4H PRN #1 inhaler 08/14/19 Aspirin [ASA -] 81 mg PO DAILY #30 tab.chew 08/14/19 Atazanavir [Reyataz -] 300 mg PO DAILY@0800 #30 capsule 08/14/19 Emtricitabine/Tenofovir [Truvada -] 1 tab PO DAILY #30 tablet 08/14/19 Ritonavir [Norvir -] 100 mg PO DAILY@0800 #30 tab 08/14/19 Sulfamethoxazole/Trimethoprim [Bactrim DS -] 1 each PO DAILY #30 tablet 08/14/19 - Diagnosis (1) Alcohol dependence with withdrawal Status: Acute Qualifiers: Complication of substance-induced condition: uncomplicated Qualified Code(s): F10.230 - Alcohol dependence with withdrawal, uncomplicated (2) Asthma Status: Chronic (3) Cocaine use disorder Status: Acute (4) GERD (gastroesophageal reflux disease) Status: Chronic Qualifiers: Esophagitis presence: without esophagitis Qualified Code(s): K21.9 - Gastro-esophageal reflux disease without esophagitis (5) HIV (human immunodeficiency virus infection) Status: Chronic Qualifiers: HIV symptom status: unspecified Qualified Code(s): B20 - Human immunodefic iency virus [HIV] disease (6) Hepatitis C Status: Chronic Qualifiers: Viral hepatitis chronicity: chronic Hepatic coma status: without hepatic coma Qualified Code(s): B18.2 - Chronic viral hepatitis C (7) PCP (phencyclidine) abuse Status: Acute (8) DEMI (acute kidney injury) Status: Acute - AMA Did Patient Leave Against Medical Advice: No (Instructed to follow up with PCP within 1-2 weeks)
--- NOTE | 2020-03-27 18:05 | DS ---
[facility] Detox Discharge Summary Admission Date: 02/19/20 - Physical Exam Results Vital Signs: Vital Signs Temperature 97.3 F L 02/24/20 08:40 Pulse Rate 74 02/24/20 08:40 Respiratory Rate 19 02/24/20 08:40 Blood Pressure 96/60 02/24/20 08:40 O2 Sat by Pulse Oximetry (%) 97 02/24/20 05:37 - Medication Discharge Medications: Ambulatory Orders Albuterol Sulfate Inhaler - [Ventolin HFA Inhaler -] 2 inh IH Q4H PRN #1 inhaler 08/14/19 Aspirin [ASA -] 81 mg PO DAILY #30 tab.chew 08/14/19 Atazanavir [Reyataz -] 300 mg PO DAILY@0800 #30 capsule 08/14/19 Emtricitabine/Tenofovir [Truvada -] 1 tab PO DAILY #30 tablet 08/14/19 Ritonavir [Norvir -] 100 mg PO DAILY@0800 #30 tab 08/14/19 Sulfamethoxazole/Trimethoprim [Bactrim DS -] 1 each PO DAILY #30 tablet 08/14/19
== END 2020-02-24 12:14 | disposition home or self-care (01) | DRG 897 ==
LOC: YASAS 12:12 → Y6N 14:00
PROVIDERS: ADMIT Allergy & Immunology; ATTEND Allergy & Immunology
PROC: HZ2ZZZZ Detoxification Services for Substance Abuse Treatment (ICD-10-PCS; principal; 2020-02-19)
DX: F10.230 Alcohol dependence with withdrawal, uncomplicated (principal); N17.9 Acute kidney failure, unspecified; F14.10 Cocaine abuse, uncomplicated; F16.10 Hallucinogen abuse, uncomplicated; Z21 Asymptomatic human immunodeficiency virus [HIV] infection status; J45.909 Unspecified asthma, uncomplicated; D64.9 Anemia, unspecified; K21.9 Gastro-esophageal reflux disease without esophagitis; B18.2 Chronic viral hepatitis C; H57.89 Other specified disorders of eye and adnexa; E78.00 Pure hypercholesterolemia, unspecified; Z91.018 Allergy to other foods
CPT/HCPCS: 36415; 80053; 85027; 86780; U0003

== ENCOUNTER 2020-03-27 14:40 | Inpatient (IN) | payer OTHER ==
--- NOTE | 2020-03-27 15:49 | BHS.RME ---
Substance Use & Tx History - Substance Use History Alcohol Substance amount: 2 pints Vodka Frequency of use: Daily Substance route: Oral Date of Last Use: 03/27/20 Cocaine-Crack Substance amount: $20 Frequency of use: Daily Substance route: Smoking Date of Last Use: 03/13/20 Physical/Psych/Mental Status - Behavior General Behavior: Decreased activity Eye Contact: Normal - Cooperativeness Cooperativeness: Cooperative - Thinking Thought Processes: Tight Thought content: Future oriented - Physical Health Problems Is patient presently having any pain?: Yes (chronic low back pain) Does patient presently have any injuries (include location): No Does patient currently have a fever: No CIWA Nausea/Vomitin-No Nausea/No Vomiting Muscle Tremors: 4-Moderate,w/Arms Extend Anxiety: 3 Agitation: 1-Slight > Activity Paroxysmal Sweats: 1-Minimal Palms Moist Orientation: 0-Oriented Tacttile Disturbances: 0-None Auditory Disturbances: 0-None Visual Disturbances: 0-None Headache: 0-None Present CIWA-Ar Total Score: 9
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
[2020-03-27 18:22] VITALS: BMI 28.1
[2020-03-27] MEDS ORDERED: ONDANSETRON *ODT* 4 MG TABLET SL ONE (18:29)
[2020-03-27] MEDS ORDERED: MENTHOL/PHENOL 1 EACH UD MM PRN (18:29)
[2020-03-27] MEDS ORDERED: hydrOXYzine PAMOATE 25 MG CAPSULE (FP) PO PRN (18:29)
[2020-03-27] MEDS ORDERED: METHOCARBAMOL 500 MG TABLET PO PRN (18:29)
[2020-03-27] MEDS ORDERED: ACETAMINOPHEN 325 MG TABLET (FP) PO PRN ×2 (18:29)
[2020-03-27] MEDS ORDERED: MAGNESIUM CITRATE 300 ML BOTTLE PO PRN (18:29)
[2020-03-27] MEDS ORDERED: MAGNESIUM HYDROX 2400MG/30ML ORAL SUSPENSION 30 ML CUP PO PRN (18:29)
[2020-03-27] MEDS ORDERED: chlordiazePOXIDE HCL 25 MG CAPSULE PO PRN (18:29)
[2020-03-27] MEDS ORDERED: ALBUTEROL SO4 HFA INHALER IH PRN (18:32)
[2020-03-27] MEDS: IBUPROFEN 400 MG TABLET (FP) PO PRN (21:07)
[2020-03-27] MEDS: THIAMINE HCL 100 MG TABLET (FP) PO SCH (23:23)
[2020-03-27] MEDS: chlordiazePOXIDE HCL 25 MG CAPSULE PO SCH (23:23)
[2020-03-27] MEDS: MELATONIN 5 MG TABLETS PO SCH (23:24)
[2020-03-28] MEDS: chlordiazePOXIDE HCL 25 MG CAPSULE PO SCH ×4 (05:52→22:51)
[2020-03-28] MEDS: MAG HYDROX/AL HYDROX/SIMETH 30 ML UNIT-DOSE CUP PO PRN ×2 (05:52→22:53)
[2020-03-28] MEDS: PRENATAL VITAMINS W/ FOLIC ACID TABLET (FP) PO SCH (10:10)
[2020-03-28] MEDS: IBUPROFEN 400 MG TABLET (FP) PO PRN ×2 (10:12→17:49)
--- NOTE | 2020-03-28 10:44 | PN ---
S CIWA - CIWA Score Nausea/Vomitin Muscle Tremors: 2 Anxiety: 2 Agitation: 2 Paroxysmal Sweats: No Perspiration Orientation: 0-Oriented Tacttile Disturbances: 1-Very Mild Itch/Numbness Auditory Disturbances: 0-None Visual Disturbances: 0-None Headache: 2-Mild CIWA-Ar Total Score: 11 BHS Progress Note (SOAP) Subjective: alert,irritable,anxious,interrupted sleep,tremor,pain in the body,nausea Objective: 03/28/20 17:37 Vital Signs Temperature 97.4 F L 03/28/20 12:48 Pulse Rate 68 03/28/20 12:48 Respiratory Rate 18 03/28/20 12:48 Blood Pressure 102/61 03/28/20 12:48 O2 Sat by Pulse Oximetry (%) 97 03/28/20 12:48 03/28/20 17:38 Laboratory Last Values POC Glucometer 124 UNITS (80-120) 03/27/20 21:04 Assessment: 03/28/20 17:38 withdrawal symptom Plan: continue detox librium regimen
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
--- NOTE | 2020-03-28 15:47 | EKG ---
Test Reason : Blood Pressure : / mmHG Vent. Rate : 058 BPM Atrial Rate : 058 BPM P-R Int : 264 ms QRS Dur : 094 ms QT Int : 438 ms P-R-T Axes : 058 -12 019 degrees QTc Int : 429 ms SINUS BRADYCARDIA WITH 1ST DEGREE A-V BLOCK CANNOT RULE OUT ANTEROSEPTAL INFARCT , AGE UNDETERMINED ABNORMAL ECG NO PREVIOUS ECGS AVAILABLE Confirmed by FLORES LONG MD ([id number]) on 03/28/2020 3:46:54 PM Referred By: Confirmed By:FLORES LONG MD
--- NOTE | 2020-03-28 15:47 | EKG ---
Test Reason : Blood Pressure : / mmHG Vent. Rate : 062 BPM Atrial Rate : 062 BPM P-R Int : 260 ms QRS Dur : 086 ms QT Int : 446 ms P-R-T Axes : 049 -16 008 degrees QTc Int : 452 ms SINUS RHYTHM WITH 1ST DEGREE A-V BLOCK CANNOT RULE OUT ANTERIOR INFARCT (CITED ON OR BEFORE 27-MAR-2020) ABNORMAL ECG WHEN COMPARED WITH ECG OF 27-MAR-2020 17:56, QUESTIONABLE CHANGE IN INITIAL FORCES OF SEPTAL LEADS Confirmed by FLORES LONG MD ([id number]) on 03/28/2020 3:46:38 PM Referred By: ELI HILL Confirmed By:FLORES LONG MD
[2020-03-28] MEDS: MELATONIN 5 MG TABLETS PO SCH (22:51)
[2020-03-28] MEDS: THIAMINE HCL 100 MG TABLET (FP) PO SCH (22:51)
[2020-03-29] MEDS: chlordiazePOXIDE HCL 25 MG CAPSULE PO SCH ×4 (06:37→22:18)
[2020-03-29] MEDS: IBUPROFEN 400 MG TABLET (FP) PO PRN ×2 (06:37→22:19)
[2020-03-29] MEDS: MAG HYDROX/AL HYDROX/SIMETH 30 ML UNIT-DOSE CUP PO PRN ×3 (06:38→22:21)
[2020-03-29] MEDS: ATAZANAVIR SO4 150 MG CAPSULE PO SCH (09:11)
[2020-03-29] MEDS: RITONAVIR 100 MG TABLET PO SCH (09:12)
[2020-03-29] MEDS: PRENATAL VITAMINS W/ FOLIC ACID TABLET (FP) PO SCH (10:46)
[2020-03-29] MEDS: ASPIRIN 81 MG CHEWABLE TABLETS PO SCH (10:46)
[2020-03-29] MEDS: SULFAMETHOXAZOLE/TRIMETHOPRIM 800MG/160MG D.S. TABLET PO SCH (10:46)
[2020-03-29] MEDS: EMTRICITABINE 200MG/TENOFOVIR 300MG PO SCH (10:47)
--- NOTE | 2020-03-29 12:07 | PN ---
BHS CIWA - CIWA Score Nausea/Vomitin-No Nausea/No Vomiting Muscle Tremors: None Anxiety: 3 Agitation: 1-Slight > Activity Paroxysmal Sweats: 3 Orientation: 0-Oriented Tacttile Disturbances: 0-None Auditory Disturbances: 0-None Visual Disturbances: 0-None Headache: 2-Mild CIWA-Ar Total Score: 9 BHS Progress Note (SOAP) Subjective: c/o sweats, anxiety, and headache. Objective: 03/29/20 12:05 Vital Signs 03/29/20 03/29/20 06:03 08:58 Temperature 97.3 F L 98.6 F Pulse Rate 80 76 Respiratory 18 18 Rate Blood Pressure 93/65 99/71 O2 Sat by Pulse 96 Oximetry (%) 03/29/20 12:07 Laboratory Last Values POC Glucometer 121 UNITS (80-120) 03/29/20 07:18 COVID-19 ([facility]) Not detected (Not Detected) 03/27/20 19:50 Assessment: 03/29/20 12:06 AOX3 and in no acute respiratory distress. Full ROM, ambulating in the unit. Withdrawal symptoms. Plan: continue detox.
[2020-03-29] MEDS: BISMUTH SUBSALICYLATE 524 MG/30 ML UD PO PRN (18:05)
[2020-03-29] MEDS: MELATONIN 5 MG TABLETS PO SCH (22:18)
[2020-03-29] MEDS: THIAMINE HCL 100 MG TABLET (FP) PO SCH (22:18)
[2020-03-30] MEDS ORDERED: chlordiazePOXIDE HCL 10 MG CAPSULE PO PRN
[2020-03-30] MEDS: IBUPROFEN 400 MG TABLET (FP) PO PRN ×2 (06:34→22:33)
[2020-03-30] MEDS: chlordiazePOXIDE HCL 10 MG CAPSULE PO SCH ×4 (06:34→22:32)
--- NOTE | 2020-03-30 09:20 | PN ---
S CIWA - CIWA Score Nausea/Vomitin-No Nausea/No Vomiting Muscle Tremors: 4-Moderate,w/Arms Extend Anxiety: 4-Mod. Anxious/Guarded Agitation: 0-Normal Activity Paroxysmal Sweats: No Perspiration Orientation: 0-Oriented Tacttile Disturbances: 0-None Auditory Disturbances: 0-None Visual Disturbances: 0-None Headache: 0-None Present CIWA-Ar Total Score: 8 BHS Progress Note (SOAP) Subjective: 69 years old female admitted on 03/27/20 for alcohol withdrawal sx management treating with librium detox regiment feeling anxiousness and restlessness vistaril 50mg po tremor requests librium for shaking and anxiousness librium 15 mg po x 1 Objective: 03/30/20 09:22 Vital Signs - 24 hr 03/29/20 03/29/20 03/29/20 12:25 17:03 20:38 Temperature 97.1 F L 97.1 F L 97.5 F L Pulse Rate 69 70 84 Respiratory 18 17 18 Rate Blood Pressure 96/68 94/72 94/66 O2 Sat by Pulse 99 98 Oximetry (%) 03/30/20 07:30 Temperature 97.3 F L Pulse Rate 53 L Respiratory 16 Rate Blood Pressure 113/64 O2 Sat by Pulse 100 Oximetry (%) Laboratory Tests 03/27/20 03/27/20 03/29/20 19:50 21:04 07:18 POC Glucometer 124 121 COVID-19 ([facility]ED) Not detected 03/30/20 09:24 Laboratory Tests ms mcqueen admitted on 02/202003/30/20 09:25 low wbc due to hiv status Assessment: 03/30/20 09:25 alcohol withdrawal hiv 03/30/20 09:26 anxiety tremor Plan: librium regiment librium 15 mg po x 1 vistaril 50 mg po
[2020-03-30] MEDS ORDERED: chlordiazePOXIDE 5 MG CAPSULE PO ONE (11:00)
[2020-03-30] MEDS: ASPIRIN 81 MG CHEWABLE TABLETS PO SCH (11:15)
[2020-03-30] MEDS: SULFAMETHOXAZOLE/TRIMETHOPRIM 800MG/160MG D.S. TABLET PO SCH (11:16)
[2020-03-30] MEDS: PRENATAL VITAMINS W/ FOLIC ACID TABLET (FP) PO SCH (11:16)
[2020-03-30] MEDS: MAG HYDROX/AL HYDROX/SIMETH 30 ML UNIT-DOSE CUP PO PRN ×2 (11:23→17:06)
[2020-03-30] MEDS: EMTRICITABINE 200MG/TENOFOVIR 300MG PO SCH (13:14)
[2020-03-30] MEDS: RITONAVIR 100 MG TABLET PO SCH (13:15)
[2020-03-30] MEDS: ATAZANAVIR SO4 150 MG CAPSULE PO SCH (13:16)
[2020-03-30] MEDS: BISMUTH SUBSALICYLATE 524 MG/30 ML UD PO PRN (13:18)
[2020-03-30] MEDS: hydrOXYzine PAMOATE 25 MG CAPSULE (FP) PO PRN (19:56)
[2020-03-30] MEDS: THIAMINE HCL 100 MG TABLET (FP) PO SCH (22:32)
[2020-03-30] MEDS: MELATONIN 5 MG TABLETS PO SCH (22:32)
[2020-03-31] MEDS: IBUPROFEN 400 MG TABLET (FP) PO PRN (06:28)
[2020-03-31] MEDS: chlordiazePOXIDE HCL 10 MG CAPSULE PO SCH ×2 (06:28→19:08)
[2020-03-31] MEDS: RITONAVIR 100 MG TABLET PO SCH (09:07)
[2020-03-31] MEDS: ATAZANAVIR SO4 150 MG CAPSULE PO SCH (09:07)
--- NOTE | 2020-03-31 09:42 | PN ---
S CIWA - CIWA Score Nausea/Vomitin-Mild Nausea/No Vomiting Muscle Tremors: 1-None Visible, but [place] Anxiety: 1-Mildly Anxious Agitation: 1-Slight > Activity Paroxysmal Sweats: No Perspiration Orientation: 0-Oriented Tacttile Disturbances: 0-None Auditory Disturbances: 0-None Visual Disturbances: 1-Very Mild Sensitivity Headache: 1-Very Mild CIWA-Ar Total Score: 6 BHS Progress Note (SOAP) Subjective: 69 years old female admitted on 03/27/20 for alcohol withdrawal sx management treating with librium detox regiment sitting on the edge of the bed eating breakfast no trouble chewing swallowing food tolerates food well speech clearly coherently discussing aftercare with staff ms mcqueen prefers to go to [facility] for alcohol recovery ms mcqueen may return to [facility] for behavioral and psychosocial therapies Objective: 03/31/20 09:42 Vital Signs - 24 hr 03/30/20 03/30/20 03/30/20 11:13 12:31 16:39 Temperature 96.8 F L 98.6 F 97.3 F L Pulse Rate 64 69 57 L Respiratory 18 18 17 Rate Blood Pressure 103/69 98/68 99/73 O2 Sat by Pulse 97 Oximetry (%) 03/30/20 03/31/20 20:37 07:00 Temperature 97.1 F L 97.4 F L Pulse Rate 62 78 Respiratory 18 16 Rate Blood Pressure 117/73 98/56 L O2 Sat by Pulse 100 99 Oximetry (%) Laboratory Tests 03/27/20 03/27/20 03/29/20 19:50 21:04 07:18 POC Glucometer 124 121 COVID-19 ([facility]) Not detected 03/31/20 09:42 see last detox admission Assessment: 03/31/20 09:43 alcohol withdrawal Plan: librium regiment
[2020-03-31] MEDS: SULFAMETHOXAZOLE/TRIMETHOPRIM 800MG/160MG D.S. TABLET PO SCH (10:19)
[2020-03-31] MEDS: PRENATAL VITAMINS W/ FOLIC ACID TABLET (FP) PO SCH (10:19)
[2020-03-31] MEDS: EMTRICITABINE 200MG/TENOFOVIR 300MG PO SCH (10:19)
[2020-03-31] MEDS: ASPIRIN 81 MG CHEWABLE TABLETS PO SCH (11:07)
[2020-03-31] MEDS ORDERED: ATAZANAVIR SO4 300 MG CAPSULE PO SCH (11:50)
[2020-03-31] MEDS: MAG HYDROX/AL HYDROX/SIMETH 30 ML UNIT-DOSE CUP PO PRN (22:47)
[2020-03-31] MEDS: hydrOXYzine PAMOATE 25 MG CAPSULE (FP) PO PRN (22:47)
[2020-03-31] MEDS: THIAMINE HCL 100 MG TABLET (FP) PO SCH (22:48)
[2020-03-31] MEDS: MELATONIN 5 MG TABLETS PO SCH (22:49)
[2020-04-01] MEDS ORDERED: chlordiazePOXIDE HCL 10 MG CAPSULE PO ONE (05:00)
--- NOTE | 2020-04-01 09:28 | HP ---
[facility] Rehab Assess/Revision - Admission History Admitted to Rehab from: [facility] Date of Admission to Rehab: 04/01/20 - Vital signs Vital Signs: Vital Signs Period Temp Pulse Resp BP Sys/Schumacher Pulse Ox Last 24 Hr 96.9 F-99.0 F 66-78 16-18 91-99/59-65 95-100 - Findings Detox History & Physical reviewed: Yes Concur with findings: Yes Comments/Additional Findings: transferred from detox to rehab admission as per protocol Inpatient Rehab Admission - Rehab Decision to Admit Inpatient rehab admission?: Yes - Initial Determination Are CD services needed?: Yes Free of communicable disease: Yes Not in need of hospitalization: Yes - Rehab Admission Criteria Previous failed treatment: Yes Poor recovery environment: Yes Comorbidities: Yes Lacks judgement: Yes Patient is meeting Inpatient Rehab admission criteria:: Yes
[2020-04-01] MEDS: EMTRICITABINE 200MG/TENOFOVIR 300MG PO SCH (09:48)
[2020-04-01] MEDS: RITONAVIR 100 MG TABLET PO SCH (09:48)
[2020-04-01] MEDS: PRENATAL VITAMINS W/ FOLIC ACID TABLET (FP) PO SCH (09:48)
[2020-04-01] MEDS: SULFAMETHOXAZOLE/TRIMETHOPRIM 800MG/160MG D.S. TABLET PO SCH (09:50)
[2020-04-01] MEDS: ASPIRIN 81 MG CHEWABLE TABLETS PO SCH (10:36)
[2020-04-01 14:11] VITALS: BP 98/66; PULSE 63; TEMP 96.9
--- NOTE | 2020-04-01 16:02 | DS ---
[facility] Detox Discharge Summary Admission Date: 03/27/20 Discharge Date: 04/01/20 - History Present History: Alcohol Dependence Additional Comments: 69 years old female was admitted on 03/27/20 for alcohol withdrawal sx management treated with librium detox regiment seen by psychiatrist no medical intervention ms mcqueen has completed the librium regiment and is tolerated well General Appearance: Yes: Moderate Distress, Tremorous, Sweating, Anxious HEENTM: Yes: Within Normal Limits Respiratory: Yes: Lungs Clear, Normal Breath Sounds, No Respiratory Distress Neck: Yes: Within Normal Limits Breast: Yes: Breast Exam Deferred Cardiology: Yes: Tachycardia Abdominal: Yes: Normal Bowel Sounds Genitourinary: Yes: Within Normal Limits Back: Yes: Normal Inspection Musculoskeletal: Yes: Within Normal Limits Extremities: Yes: Tremors 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: Yes: Within Normal Limits, Alert, Normal Mood/Affect Integumentary: Yes: Warm Lymphatic: Yes: Within Normal Limits Pertinent Past History: time for discharge 35 minutes - Physical Exam Results Vital Signs: Vital Signs Temperature 96.9 F L 04/01/20 13:14 Pulse Rate 63 04/01/20 13:14 Respiratory Rate 18 04/01/20 13:14 Blood Pressure 98/66 04/01/20 13:14 O2 Sat by Pulse Oximetry (%) 100 04/01/20 13:14 Pertinent Admission Physical Exam Findings: alcohol withdrawal Laboratory Tests 03/27/20 03/27/20 03/29/20 19:50 21:04 07:18 POC Glucometer 124 121 COVID-19 ([facility]) Not detected 03/31/20 16:46 POC Glucometer 117 COVID-19 ([facility]) see 02/2020 admission lab - Treatment Hospital Course: Detox Protocol Followed, Detoxed Safely, Responded well, Discharged Condition Good, Rehab Referral Accepted Patient has Accepted a Rehab Referral [facility]: [facility] - Medication Discharge Medications: Ambulatory Orders Albuterol Sulfate Inhaler - [Ventolin HFA Inhaler -] 2 inh IH Q4H PRN #1 inhaler 08/14/19 Aspirin [ASA -] 81 mg PO DAILY #30 tab.chew 08/14/19 Atazanavir [Reyataz -] 300 mg PO DAILY@0800 #30 capsule 08/14/19 Emtricitabine/Tenofovir [Truvada -] 1 tab PO DAILY #30 tablet 08/14/19 Ritonavir [Norvir -] 100 mg PO DAILY@0800 #30 tab 08/14/19 Sulfamethoxazole/Trimethoprim [Bactrim DS -] 1 each PO DAILY #30 tablet 08/14/19 - Diagnosis (1) Alcohol dependence with withdrawal Status: Acute Qualifiers: Complication of substance-induced condition: uncomplicated Qualified Code(s): F10.230 - Alcohol dependence with withdrawal, uncomplicated (2) Asthma Status: Chronic (3) GERD (gastroesophageal reflux disease) Status: Chronic Qualifiers: Esophagitis presence: without esophagitis Qualified Code(s): K21.9 - G omar-esophageal reflux disease without esophagitis (4) HIV (human immunodeficiency virus infection) Status: Chronic Qualifiers: HIV symptom status: asymptomatic Qualified Code(s): Z21 - Asymptomatic human immunodeficiency virus [HIV] infection status (5) HLD (hyperlipidemia) Status: Chronic Qualifiers: Hyperlipidemia type: unspecified Qualified Code(s): E78.5 - Hyperlipidemia, unspecified (6) Hepatitis C Status: Chronic Qualifiers: Viral hepatitis chronicity: chronic Hepatic coma status: without hepatic coma Qualified Code(s): B18.2 - Chronic viral hepatitis C (7) Hypertension Status: Chronic Qualifiers: Hypertension type: essential hypertension Qualified Code(s): I10 - Essential (primary) hypertension (8) Poor dentition Status: Chronic (9) Substance induced mood disorder Status: Suspected (10) Walker as ambulation aid Status: Chronic (11) Substance induced mood disorder Status: Suspected - AMA Did Patient Leave Against Medical Advice: No CIWA Score - CIWA Score Nausea/Vomitin-Mild Nausea/No Vomiting Muscle Tremors: 1-None Visible, but [place] Anxiety: 1-Mildly Anxious Agitation: 0-Normal Activity Paroxysmal Sweats: No Perspiration Orientation: 0-Oriented Tacttile Disturbances: 0-None Auditory Disturbances: 0-None Visual Disturbances: 0-None Headache: 0-None Present CIWA-Ar Total Score: 3
== END 2020-04-01 13:59 | disposition home or self-care (01) | DRG 897 ==
LOC: YASAS 14:40 → Y3N 18:52
PROVIDERS: ADMIT Allergy & Immunology; ATTEND Allergy & Immunology
PROC: HZ2ZZZZ Detoxification Services for Substance Abuse Treatment (ICD-10-PCS; principal; 2020-03-27)
DX: F10.230 Alcohol dependence with withdrawal, uncomplicated (principal); F14.20 Cocaine dependence, uncomplicated; F19.24 Other psychoactive substance dependence with psychoactive substance-induced mood disorder; F32.9 Major depressive disorder, single episode, unspecified; Z21 Asymptomatic human immunodeficiency virus [HIV] infection status; I10 Essential (primary) hypertension; B18.2 Chronic viral hepatitis C; E78.5 Hyperlipidemia, unspecified; J45.909 Unspecified asthma, uncomplicated; K21.9 Gastro-esophageal reflux disease without esophagitis; K08.9 Disorder of teeth and supporting structures, unspecified; D64.9 Anemia, unspecified; R73.03 Prediabetes; Z99.89 Dependence on other enabling machines and devices; Z91.14 Patient's other noncompliance with medication regimen; Z91.19 Patient's noncompliance with other medical treatment and regimen; Z91.018 Allergy to other foods
CPT/HCPCS: 82962; 93005; 93010; U0003

== ENCOUNTER 2020-10-08 13:06 | Inpatient (IN) | payer OTHER ==
[2020-10-08] MEDS ORDERED: NICOTINE POLACRILEX 2 MG GUM BUC PRN (14:42)
[2020-10-08] MEDS ORDERED: ONDANSETRON *ODT* 4 MG TABLET SL PRN (14:42)
[2020-10-08] MEDS ORDERED: MAGNESIUM HYDROX 2400MG/30ML ORAL SUSPENSION 30 ML CUP PO PRN (14:42)
[2020-10-08] MEDS ORDERED: MENTHOL/PHENOL 1 EACH UD MM PRN (14:42)
[2020-10-08] MEDS ORDERED: LORazepam 1 MG TABLET PO PRN (14:42)
[2020-10-08] MEDS ORDERED: ACETAMINOPHEN 325 MG TABLET (FP) PO PRN (14:42)
[2020-10-08] MEDS ORDERED: MAGNESIUM CITRATE 300 ML BOTTLE PO PRN (14:42)
[2020-10-08] MEDS ORDERED: BISMUTH SUBSALICYLATE 524 MG/30 ML UD PO PRN (14:42)
[2020-10-08 15:48] VITALS: BMI 30.2
[2020-10-08] MEDS ORDERED: ALBUTEROL SO4 HFA INHALER IH PRN (16:20)
[2020-10-08] MEDS: LORazepam 2 MG TABLET PO SCH ×2 (18:01→22:27)
[2020-10-08] MEDS: ASPIRIN 81 MG CHEWABLE TABLETS PO SCH (18:01)
[2020-10-08] MEDS: hydrOXYzine PAMOATE 25 MG CAPSULE (FP) PO SCH ×2 (18:01→22:27)
[2020-10-08] MEDS: PRENATAL VITAMINS W/ FOLIC ACID TABLET (FP) PO SCH (18:01)
[2020-10-08] MEDS: SULFAMETHOXAZOLE/TRIMETHOPRIM 800MG/160MG D.S. TABLET PO SCH (18:01)
[2020-10-08] MEDS: MAG HYDROX/AL HYDROX/SIMETH 30 ML UNIT-DOSE CUP PO PRN (18:05)
[2020-10-08] MEDS: MELATONIN 5 MG TABLETS PO SCH (22:28)
[2020-10-08] MEDS: SUCRALFATE 1 GM TABLET (FP) PO SCH (22:28)
[2020-10-08] MEDS: THIAMINE HCL 100 MG TABLET (FP) PO SCH (22:28)
[2020-10-09] MEDS: ACETAMINOPHEN 325 MG TABLET (FP) PO PRN (03:22)
[2020-10-09] MEDS: MAG HYDROX/AL HYDROX/SIMETH 30 ML UNIT-DOSE CUP PO PRN ×3 (03:22→17:51)
[2020-10-09] MEDS: LORazepam 2 MG TABLET PO SCH (05:24)
[2020-10-09] MEDS: hydrOXYzine PAMOATE 25 MG CAPSULE (FP) PO SCH (05:25)
[2020-10-09] MEDS ORDERED: RITONAVIR 100 MG TABLET PO SCH (10:00)
[2020-10-09] MEDS ORDERED: ATAZANAVIR SO4 300 MG CAPSULE PO SCH (10:00)
[2020-10-09] MEDS ORDERED: EMTRICITABINE 200MG/TENOFOVIR 300MG PO SCH (10:00)
[2020-10-09] MEDS: ASPIRIN 81 MG CHEWABLE TABLETS PO SCH (10:04)
[2020-10-09] MEDS: PRENATAL VITAMINS W/ FOLIC ACID TABLET (FP) PO SCH (10:04)
[2020-10-09] MEDS: SULFAMETHOXAZOLE/TRIMETHOPRIM 800MG/160MG D.S. TABLET PO SCH (10:04)
[2020-10-09] MEDS: SUCRALFATE 1 GM TABLET (FP) PO SCH ×2 (10:04→22:19)
[2020-10-09 11:20] LABS: CALCIUM 10.2 mg/dL (8.5-10.1)
[2020-10-09 11:21] LABS: ALBUMIN 3.8 g/dl (3.4-5.0); BLOOD UREA NITROGEN 14.9 mg/dL (7-18)
[2020-10-09 11:24] LABS: CREATININE 1.6 mg/dL (0.55-1.3)
[2020-10-09 11:26] LABS: BILIRUBIN,TOTAL 3.3 mg/dL (0.2-1); TOT PROT 8.4 g/dl (6.4-8.2)
[2020-10-09 11:31] LABS: HEMATOCRIT 32.9 % (32.4-45.2); HEMOGLOBIN 11.1 GM/dL (10.7-15.3); MCH 29.9 pg (25.7-33.7); MCHC 33.8 g/dl (32.0-36.0); MEAN CELL VOLUME 88.4 fl (80-96); MEAN PLT VOLUME 8.3 fl (7.5-11.1); PLATELET COUNT 258 K/MM3 (134-434); RBC 3.72 M/mm3 (3.60-5.2); RDW 17.1 % (11.6-15.6)
[2020-10-09] MEDS ORDERED: chlordiazePOXIDE HCL 25 MG CAPSULE PO PRN ×2 (11:52→12:10)
[2020-10-09] MEDS ORDERED: chlordiazePOXIDE HCL 25 MG CAPSULE PO ONE (11:52)
[2020-10-09] MEDS: chlordiazePOXIDE HCL 25 MG CAPSULE PO SCH ×4 (13:27→22:20)
[2020-10-09] MEDS ORDERED: chlordiazePOXIDE HCL 25 MG CAPSULE PO SCH ×2 (17:00)
[2020-10-09] MEDS: THIAMINE HCL 100 MG TABLET (FP) PO SCH (22:19)
[2020-10-09] MEDS: MELATONIN 5 MG TABLETS PO SCH (22:19)
[2020-10-10] MEDS: ACETAMINOPHEN 325 MG TABLET (FP) PO PRN ×2 (02:31→17:48)
[2020-10-10] MEDS: MAG HYDROX/AL HYDROX/SIMETH 30 ML UNIT-DOSE CUP PO PRN ×2 (02:32→17:50)
[2020-10-10] MEDS ORDERED: chlordiazePOXIDE HCL 25 MG CAPSULE PO SCH (05:00)
[2020-10-10] MEDS ORDERED: LORazepam 1 MG TABLET PO SCH (05:00)
[2020-10-10] MEDS: chlordiazePOXIDE HCL 25 MG CAPSULE PO SCH ×4 (05:45→22:03)
[2020-10-10] MEDS: ATAZANAVIR SO4 300 MG CAPSULE PO SCH (07:18)
[2020-10-10] MEDS: RITONAVIR 100 MG TABLET PO SCH (07:19)
[2020-10-10] MEDS: EMTRICITABINE 200MG/TENOFOVIR 300MG PO SCH (07:20)
[2020-10-10] MEDS: METHOCARBAMOL 500 MG TABLET PO PRN ×2 (08:55→17:48)
[2020-10-10] MEDS: SULFAMETHOXAZOLE/TRIMETHOPRIM 800MG/160MG D.S. TABLET PO SCH (10:16)
[2020-10-10] MEDS: SUCRALFATE 1 GM TABLET (FP) PO SCH ×2 (10:16→22:02)
[2020-10-10] MEDS: PRENATAL VITAMINS W/ FOLIC ACID TABLET (FP) PO SCH (10:18)
[2020-10-10] MEDS: ASPIRIN 81 MG CHEWABLE TABLETS PO SCH (10:18)
[2020-10-10] MEDS: MELATONIN 5 MG TABLETS PO SCH (22:02)
[2020-10-10] MEDS: THIAMINE HCL 100 MG TABLET (FP) PO SCH (22:02)
[2020-10-10] MEDS: IBUPROFEN 400 MG TABLET (FP) PO PRN (22:05)
[2020-10-11] MEDS ORDERED: LORazepam 0.5 MG TABLET PO PRN
[2020-10-11] MEDS ORDERED: chlordiazePOXIDE HCL 10 MG CAPSULE PO PRN
[2020-10-11] MEDS: MAG HYDROX/AL HYDROX/SIMETH 30 ML UNIT-DOSE CUP PO PRN ×2 (03:45→20:16)
[2020-10-11] MEDS ORDERED: chlordiazePOXIDE HCL 25 MG CAPSULE PO SCH ×2 (05:00)
[2020-10-11] MEDS ORDERED: LORazepam 0.5 MG TABLET PO SCH (05:00)
[2020-10-11] MEDS ORDERED: chlordiazePOXIDE HCL 10 MG CAPSULE PO SCH (05:00)
[2020-10-11] MEDS ORDERED: chlordiazePOXIDE 5 MG CAPSULE PO SCH (05:27)
[2020-10-11] MEDS: chlordiazePOXIDE 5 MG CAPSULE PO SCH ×4 (06:36→22:28)
[2020-10-11] MEDS: IBUPROFEN 400 MG TABLET (FP) PO PRN (06:38)
[2020-10-11] MEDS: METHOCARBAMOL 500 MG TABLET PO PRN ×2 (06:39→18:01)
[2020-10-11] MEDS: EMTRICITABINE 200MG/TENOFOVIR 300MG PO SCH (07:16)
[2020-10-11] MEDS: ATAZANAVIR SO4 300 MG CAPSULE PO SCH (07:16)
[2020-10-11] MEDS: RITONAVIR 100 MG TABLET PO SCH (07:16)
[2020-10-11] MEDS: PRENATAL VITAMINS W/ FOLIC ACID TABLET (FP) PO SCH (10:23)
[2020-10-11] MEDS: SUCRALFATE 1 GM TABLET (FP) PO SCH ×2 (10:24→22:27)
[2020-10-11] MEDS: SULFAMETHOXAZOLE/TRIMETHOPRIM 800MG/160MG D.S. TABLET PO SCH (10:24)
[2020-10-11] MEDS: ASPIRIN 81 MG CHEWABLE TABLETS PO SCH (10:24)
[2020-10-11] MEDS: MELATONIN 5 MG TABLETS PO SCH (22:27)
[2020-10-11] MEDS: THIAMINE HCL 100 MG TABLET (FP) PO SCH (22:27)
[2020-10-11] MEDS: FAMOTIDINE 20 MG TABLET PO SCH (22:27)
[2020-10-12] MEDS ORDERED: chlordiazePOXIDE HCL 10 MG CAPSULE PO PRN
[2020-10-12] MEDS ORDERED: LORazepam 0.5 MG TABLET PO ONE (05:00)
[2020-10-12] MEDS ORDERED: chlordiazePOXIDE HCL 10 MG CAPSULE PO SCH (05:00)
[2020-10-12] MEDS: chlordiazePOXIDE HCL 10 MG CAPSULE PO SCH ×4 (06:48→22:14)
[2020-10-12] MEDS: ACETAMINOPHEN 325 MG TABLET (FP) PO PRN (06:50)
[2020-10-12] MEDS: METHOCARBAMOL 500 MG TABLET PO PRN ×2 (06:51→22:13)
[2020-10-12] MEDS: ATAZANAVIR SO4 300 MG CAPSULE PO SCH (07:58)
[2020-10-12] MEDS: EMTRICITABINE 200MG/TENOFOVIR 300MG PO SCH (07:59)
[2020-10-12] MEDS: RITONAVIR 100 MG TABLET PO SCH (07:59)
[2020-10-12] MEDS: PRENATAL VITAMINS W/ FOLIC ACID TABLET (FP) PO SCH (10:29)
[2020-10-12] MEDS: SUCRALFATE 1 GM TABLET (FP) PO SCH ×2 (10:29→22:13)
[2020-10-12] MEDS: ASPIRIN 81 MG CHEWABLE TABLETS PO SCH (10:29)
[2020-10-12] MEDS: hydrOXYzine PAMOATE 25 MG CAPSULE (FP) PO PRN ×3 (10:30→22:13)
[2020-10-12] MEDS: FAMOTIDINE 20 MG TABLET PO SCH ×2 (10:30→22:13)
[2020-10-12] MEDS: SULFAMETHOXAZOLE/TRIMETHOPRIM 800MG/160MG D.S. TABLET PO SCH (10:30)
[2020-10-12] MEDS: MELATONIN 5 MG TABLETS PO SCH (22:12)
[2020-10-12] MEDS: THIAMINE HCL 100 MG TABLET (FP) PO SCH (22:12)
[2020-10-13] MEDS ORDERED: chlordiazePOXIDE HCL 10 MG CAPSULE PO ONE (05:00)
[2020-10-13] MEDS: chlordiazePOXIDE HCL 10 MG CAPSULE PO SCH ×2 (06:09→17:28)
[2020-10-13] MEDS: ACETAMINOPHEN 325 MG TABLET (FP) PO PRN (06:10)
[2020-10-13] MEDS: METHOCARBAMOL 500 MG TABLET PO PRN ×3 (06:10→22:53)
[2020-10-13] MEDS: ATAZANAVIR SO4 300 MG CAPSULE PO SCH (07:53)
[2020-10-13] MEDS: EMTRICITABINE 200MG/TENOFOVIR 300MG PO SCH (07:54)
[2020-10-13] MEDS: RITONAVIR 100 MG TABLET PO SCH (07:54)
[2020-10-13] MEDS: PRENATAL VITAMINS W/ FOLIC ACID TABLET (FP) PO SCH (10:31)
[2020-10-13] MEDS: ASPIRIN 81 MG CHEWABLE TABLETS PO SCH (10:31)
[2020-10-13] MEDS: SUCRALFATE 1 GM TABLET (FP) PO SCH ×2 (10:32→22:50)
[2020-10-13] MEDS: FAMOTIDINE 20 MG TABLET PO SCH ×2 (10:32→22:51)
[2020-10-13] MEDS: SULFAMETHOXAZOLE/TRIMETHOPRIM 800MG/160MG D.S. TABLET PO SCH (10:32)
[2020-10-13] MEDS: hydrOXYzine PAMOATE 25 MG CAPSULE (FP) PO PRN ×3 (10:35→22:54)
[2020-10-13] MEDS: MELATONIN 5 MG TABLETS PO SCH (22:50)
[2020-10-13] MEDS: THIAMINE HCL 100 MG TABLET (FP) PO SCH (22:51)
[2020-10-13] MEDS: MAG HYDROX/AL HYDROX/SIMETH 30 ML UNIT-DOSE CUP PO PRN (22:55)
[2020-10-14] MEDS ORDERED: chlordiazePOXIDE HCL 10 MG CAPSULE PO ONE (05:00)
[2020-10-14] MEDS: METHOCARBAMOL 500 MG TABLET PO PRN (05:52)
[2020-10-14] MEDS: IBUPROFEN 400 MG TABLET (FP) PO PRN (05:54)
[2020-10-14] MEDS: EMTRICITABINE 200MG/TENOFOVIR 300MG PO SCH (08:21)
[2020-10-14] MEDS: ATAZANAVIR SO4 300 MG CAPSULE PO SCH (08:21)
[2020-10-14] MEDS: RITONAVIR 100 MG TABLET PO SCH (08:21)
[2020-10-14] MEDS: PRENATAL VITAMINS W/ FOLIC ACID TABLET (FP) PO SCH (09:28)
[2020-10-14] MEDS: ASPIRIN 81 MG CHEWABLE TABLETS PO SCH (09:28)
[2020-10-14] MEDS: SUCRALFATE 1 GM TABLET (FP) PO SCH (09:28)
[2020-10-14] MEDS: FAMOTIDINE 20 MG TABLET PO SCH (09:29)
[2020-10-14] MEDS: SULFAMETHOXAZOLE/TRIMETHOPRIM 800MG/160MG D.S. TABLET PO SCH (09:30)
[2020-10-14 10:15] VITALS: BP 96/61; PULSE 69; TEMP 98.3
== END 2020-10-14 12:50 | disposition home or self-care (01) | DRG 897 ==
LOC: YASAS 13:06 → Y3N 15:03
PROVIDERS: ADMIT Allergy & Immunology; ATTEND Allergy & Immunology
PROC: HZ2ZZZZ Detoxification Services for Substance Abuse Treatment (ICD-10-PCS; principal; 2020-10-08)
DX: F10.230 Alcohol dependence with withdrawal, uncomplicated (principal); F14.20 Cocaine dependence, uncomplicated; F16.20 Hallucinogen dependence, uncomplicated; N17.9 Acute kidney failure, unspecified; E87.1 Hypo-osmolality and hyponatremia; F12.20 Cannabis dependence, uncomplicated; F19.24 Other psychoactive substance dependence with psychoactive substance-induced mood disorder; Z21 Asymptomatic human immunodeficiency virus [HIV] infection status; G47.00 Insomnia, unspecified; J45.20 Mild intermittent asthma, uncomplicated; K21.9 Gastro-esophageal reflux disease without esophagitis; H55.00 Unspecified nystagmus; R73.03 Prediabetes; R94.5 Abnormal results of liver function studies; E66.9 Obesity, unspecified; Z68.30 Body mass index [BMI] 30.0-30.9, adult; Z99.89 Dependence on other enabling machines and devices; Z91.018 Allergy to other foods
CPT/HCPCS: 36415; 80053; 85027; 86780; C9803; U0003

== ENCOUNTER 2020-11-17 17:44 | Inpatient (IN) | payer OTHER ==
[2020-11-17 18:45] VITALS: BMI 30.2
[2020-11-17] MEDS ORDERED: ONDANSETRON *ODT* 4 MG TABLET SL PRN (19:17)
[2020-11-17] MEDS ORDERED: ACETAMINOPHEN 325 MG TABLET (FP) PO PRN ×2 (19:17)
[2020-11-17] MEDS ORDERED: IBUPROFEN 400 MG TABLET (FP) PO PRN (19:17)
[2020-11-17] MEDS ORDERED: MAGNESIUM HYDROX 2400MG/30ML ORAL SUSPENSION 30 ML CUP PO PRN (19:17)
[2020-11-17] MEDS ORDERED: MENTHOL/PHENOL 1 EACH UD MM PRN (19:17)
[2020-11-17] MEDS ORDERED: MAGNESIUM CITRATE 300 ML BOTTLE PO PRN (19:17)
[2020-11-17] MEDS ORDERED: chlordiazePOXIDE HCL 25 MG CAPSULE PO PRN (19:26)
[2020-11-17] MEDS: THIAMINE HCL 100 MG TABLET (FP) PO SCH (22:18)
[2020-11-17] MEDS: SULFAMETHOXAZOLE/TRIMETHOPRIM 800MG/160MG D.S. TABLET PO SCH (22:18)
[2020-11-17] MEDS: chlordiazePOXIDE HCL 25 MG CAPSULE PO SCH (22:19)
[2020-11-17] MEDS: MELATONIN 5 MG TABLETS PO SCH (22:19)
[2020-11-17] MEDS: SUCRALFATE 1 GM TABLET (FP) PO SCH (22:20)
[2020-11-18] MEDS: chlordiazePOXIDE HCL 25 MG CAPSULE PO SCH ×4 (05:49→22:06)
[2020-11-18] MEDS ORDERED: ALBUTEROL SO4 HFA INHALER IH PRN (08:22)
[2020-11-18] MEDS: RITONAVIR 100 MG TABLET PO SCH (09:19)
[2020-11-18] MEDS: ATAZANAVIR SO4 300 MG CAPSULE PO SCH (09:19)
[2020-11-18] MEDS: SUCRALFATE 1 GM TABLET (FP) PO SCH ×2 (10:07→22:06)
[2020-11-18] MEDS: PRENATAL VITAMINS W/ FOLIC ACID TABLET (FP) PO SCH (10:07)
[2020-11-18] MEDS: SULFAMETHOXAZOLE/TRIMETHOPRIM 800MG/160MG D.S. TABLET PO SCH (10:07)
[2020-11-18] MEDS ORDERED: FLU VACCINE (FLULAVAL) PF 60 MCG/0.5 ML SYRINGE 2020-2021 IM ONE (12:00)
[2020-11-18] MEDS: MAG HYDROX/AL HYDROX/SIMETH 30 ML UNIT-DOSE CUP PO PRN (15:04)
[2020-11-18] MEDS: MELATONIN 5 MG TABLETS PO SCH (22:05)
[2020-11-18] MEDS: THIAMINE HCL 100 MG TABLET (FP) PO SCH (22:06)
[2020-11-19] MEDS ORDERED: chlordiazePOXIDE HCL 10 MG CAPSULE PO PRN
[2020-11-19] MEDS: chlordiazePOXIDE HCL 10 MG CAPSULE PO SCH ×4 (05:37→22:06)
[2020-11-19] MEDS: MAG HYDROX/AL HYDROX/SIMETH 30 ML UNIT-DOSE CUP PO PRN (05:38)
[2020-11-19] MEDS: RITONAVIR 100 MG TABLET PO SCH (07:08)
[2020-11-19] MEDS: ATAZANAVIR SO4 300 MG CAPSULE PO SCH (07:08)
[2020-11-19] MEDS: SUCRALFATE 1 GM TABLET (FP) PO SCH ×2 (10:11→22:07)
[2020-11-19] MEDS: PRENATAL VITAMINS W/ FOLIC ACID TABLET (FP) PO SCH (10:11)
[2020-11-19] MEDS: SULFAMETHOXAZOLE/TRIMETHOPRIM 800MG/160MG D.S. TABLET PO SCH (10:11)
[2020-11-19 12:38] LABS: HEMATOCRIT 32.2 % (32.4-45.2); HEMOGLOBIN 10.7 GM/dL (10.7-15.3); MCH 30.5 pg (25.7-33.7); MCHC 33.4 g/dl (32.0-36.0); MEAN CELL VOLUME 91.5 fl (80-96); PLATELET COUNT 184 K/MM3 (134-434); RBC 3.52 M/mm3 (3.60-5.2); RDW 17.7 % (11.6-15.6); WHITE BLOOD COUNT 3.5 K/mm3 (4.0-10.0)
[2020-11-19 13:04] LABS: CALCIUM 9.3 mg/dL (8.5-10.1)
[2020-11-19 13:05] LABS: ALBUMIN 3.1 g/dl (3.4-5.0); BLOOD UREA NITROGEN 12.6 mg/dL (7-18)
[2020-11-19 13:09] LABS: BILIRUBIN,TOTAL 1.2 mg/dL (0.2-1); CREATININE 1.1 mg/dL (0.55-1.3); TOT PROT 6.8 g/dl (6.4-8.2)
[2020-11-19] MEDS: EMTRICITABINE 200MG/TENOFOVIR 300MG PO SCH (14:36)
[2020-11-19] MEDS: MELATONIN 5 MG TABLETS PO SCH (22:06)
[2020-11-19] MEDS: THIAMINE HCL 100 MG TABLET (FP) PO SCH (22:06)
[2020-11-20] MEDS: chlordiazePOXIDE HCL 10 MG CAPSULE PO SCH ×2 (06:03→17:46)
[2020-11-20 06:08] LABS: SARS-CoV-2 NAA Not Detected (Not Detected)
[2020-11-20] MEDS: ATAZANAVIR SO4 300 MG CAPSULE PO SCH (07:54)
[2020-11-20] MEDS: EMTRICITABINE 200MG/TENOFOVIR 300MG PO SCH (07:54)
[2020-11-20] MEDS: RITONAVIR 100 MG TABLET PO SCH (07:55)
[2020-11-20] MEDS: hydrOXYzine PAMOATE 25 MG CAPSULE (FP) PO PRN ×2 (09:27→17:47)
[2020-11-20] MEDS: SULFAMETHOXAZOLE/TRIMETHOPRIM 800MG/160MG D.S. TABLET PO SCH (09:27)
[2020-11-20] MEDS: SUCRALFATE 1 GM TABLET (FP) PO SCH ×2 (09:28→22:13)
[2020-11-20] MEDS: PRENATAL VITAMINS W/ FOLIC ACID TABLET (FP) PO SCH (09:28)
[2020-11-20] MEDS: MAG HYDROX/AL HYDROX/SIMETH 30 ML UNIT-DOSE CUP PO PRN (14:42)
[2020-11-20] MEDS: THIAMINE HCL 100 MG TABLET (FP) PO SCH (22:13)
[2020-11-20] MEDS: MELATONIN 5 MG TABLETS PO SCH (22:13)
[2020-11-21] MEDS ORDERED: chlordiazePOXIDE HCL 10 MG CAPSULE PO ONE (05:00)
[2020-11-21] MEDS: hydrOXYzine PAMOATE 25 MG CAPSULE (FP) PO PRN (05:55)
[2020-11-21] MEDS: ATAZANAVIR SO4 300 MG CAPSULE PO SCH (07:11)
[2020-11-21] MEDS: RITONAVIR 100 MG TABLET PO SCH (07:12)
[2020-11-21] MEDS: EMTRICITABINE 200MG/TENOFOVIR 300MG PO SCH (07:12)
[2020-11-21] MEDS: PRENATAL VITAMINS W/ FOLIC ACID TABLET (FP) PO SCH (09:47)
[2020-11-21] MEDS: SULFAMETHOXAZOLE/TRIMETHOPRIM 800MG/160MG D.S. TABLET PO SCH (09:47)
[2020-11-21] MEDS: SUCRALFATE 1 GM TABLET (FP) PO SCH ×2 (09:47→22:34)
[2020-11-21] MEDS: MAG HYDROX/AL HYDROX/SIMETH 30 ML UNIT-DOSE CUP PO PRN (19:50)
[2020-11-21] MEDS: THIAMINE HCL 100 MG TABLET (FP) PO SCH (21:03)
[2020-11-21] MEDS: MELATONIN 5 MG TABLETS PO SCH (21:03)
[2020-11-22 08:55] VITALS: BP 97/59; PULSE 76; TEMP 97.3
[2020-11-22] MEDS: SULFAMETHOXAZOLE/TRIMETHOPRIM 800MG/160MG D.S. TABLET PO SCH (09:59)
[2020-11-22] MEDS: RITONAVIR 100 MG TABLET PO SCH (09:59)
[2020-11-22] MEDS: EMTRICITABINE 200MG/TENOFOVIR 300MG PO SCH (09:59)
[2020-11-22] MEDS: SUCRALFATE 1 GM TABLET (FP) PO SCH (09:59)
[2020-11-22] MEDS: PRENATAL VITAMINS W/ FOLIC ACID TABLET (FP) PO SCH (09:59)
[2020-11-22] MEDS: ATAZANAVIR SO4 300 MG CAPSULE PO SCH (09:59)
== END 2020-11-22 10:09 | disposition left against medical advice (07) | DRG 894 ==
LOC: YASAS 17:44 → Y3N 20:30 → Y5N 11-21 12:13
PROVIDERS: ADMIT Allergy & Immunology; ATTEND Allergy & Immunology
PROC: HZ2ZZZZ Detoxification Services for Substance Abuse Treatment (ICD-10-PCS; 2020-11-17)
PROC: HZ42ZZZ Group Counseling for Substance Abuse Treatment, Cognitive-Behavioral (ICD-10-PCS; principal; 2020-11-21)
DX: F10.20 Alcohol dependence, uncomplicated (principal); F14.20 Cocaine dependence, uncomplicated; Z21 Asymptomatic human immunodeficiency virus [HIV] infection status; J45.20 Mild intermittent asthma, uncomplicated; K21.9 Gastro-esophageal reflux disease without esophagitis; B18.2 Chronic viral hepatitis C; Z91.018 Allergy to other foods; R73.03 Prediabetes
CPT/HCPCS: 36415; 80053; 85027; 86780; C9803; G0008; Q2036; U0003; U0005

== ENCOUNTER 2021-01-19 11:12 | Inpatient (IN) | payer OTHER ==
[~2021-01-19 11:12] MED LIST: diazePAM 5 MG TABLET PO SCH
[2021-01-19] MEDS ORDERED: ALBUTEROL SO4 HFA INHALER IH PRN (12:26)
[2021-01-19] MEDS ORDERED: MAGNESIUM CITRATE 300 ML BOTTLE PO PRN (12:28)
[2021-01-19] MEDS ORDERED: METHOCARBAMOL 500 MG TABLET PO PRN (12:28)
[2021-01-19] MEDS ORDERED: BISMUTH SUBSALICYLATE 524 MG/30 ML PO PRN (12:28)
[2021-01-19] MEDS ORDERED: diazePAM 5 MG TABLET PO PRN ×2 (12:28→12:44)
[2021-01-19] MEDS ORDERED: MAGNESIUM HYDROX 2400MG/30ML ORAL SUSPENSION 30 ML CUP PO PRN (12:28)
[2021-01-19] MEDS ORDERED: ONDANSETRON *ODT* 4 MG TABLET SL PRN (12:28)
[2021-01-19] MEDS ORDERED: MENTHOL/PHENOL 1 EACH UD MM PRN (12:28)
[2021-01-19] MEDS ORDERED: ACETAMINOPHEN 325 MG TABLET (FP) PO PRN ×2 (12:28)
[2021-01-19] MEDS ORDERED: LORazepam 1 MG TABLET PO PRN (13:05)
[2021-01-19] MEDS: PRENATAL VITAMINS W/ FOLIC ACID TABLET (FP) PO SCH (13:29)
[2021-01-19] MEDS: hydrOXYzine PAMOATE 25 MG CAPSULE (FP) PO SCH ×3 (13:29→22:14)
[2021-01-19 15:03] LABS: HEMATOCRIT 38.1 % (32.4-45.2); HEMOGLOBIN 12.6 GM/dL (10.7-15.3); MCH 29.9 pg (25.7-33.7); MEAN CELL VOLUME 90.6 fl (80-96); MEAN PLT VOLUME 8.4 fl (7.5-11.1); PLATELET COUNT 215 K/MM3 (134-434); RBC 4.21 M/mm3 (3.60-5.2); RDW 15.6 % (11.6-15.6); WHITE BLOOD COUNT 3.2 K/mm3 (4.0-10.0)
[2021-01-19] MEDS: LORazepam 2 MG TABLET PO SCH ×2 (18:03→22:15)
[2021-01-19] MEDS: THIAMINE HCL 100 MG TABLET (FP) PO SCH (22:13)
[2021-01-19] MEDS: MELATONIN 5 MG TABLETS PO SCH (22:13)
[2021-01-19] MEDS: SUCRALFATE 1 GM TABLET (FP) PO SCH (22:13)
[2021-01-20] MEDS: hydrOXYzine PAMOATE 25 MG CAPSULE (FP) PO SCH ×2 (06:44→10:58)
[2021-01-20] MEDS: LORazepam 2 MG TABLET PO SCH ×4 (06:44→22:27)
[2021-01-20] MEDS ORDERED: EMTRICITABINE 200MG/TENOFOVIR 300MG PO SCH (07:00)
[2021-01-20] MEDS: PRENATAL VITAMINS W/ FOLIC ACID TABLET (FP) PO SCH (10:58)
[2021-01-20] MEDS: SULFAMETHOXAZOLE/TRIMETHOPRIM 800MG/160MG D.S. TABLET PO SCH (10:58)
[2021-01-20] MEDS: SUCRALFATE 1 GM TABLET (FP) PO SCH ×2 (10:59→22:26)
[2021-01-20] MEDS: RITONAVIR 100 MG TABLET PO SCH (11:01)
[2021-01-20 11:31] LABS: CALCIUM 9.6 mg/dL (8.5-10.1)
[2021-01-20 11:33] LABS: ALBUMIN 3.7 g/dl (3.4-5.0); BLOOD UREA NITROGEN 23.9 mg/dL (7-18)
[2021-01-20 11:35] LABS: CREATININE 1.5 mg/dL (0.55-1.3)
[2021-01-20 11:38] LABS: BILIRUBIN,TOTAL 1.1 mg/dL (0.2-1); TOT PROT 8.6 g/dl (6.4-8.2)
[2021-01-20] MEDS: hydrOXYzine PAMOATE 25 MG CAPSULE (FP) PO PRN (17:47)
[2021-01-20] MEDS: THIAMINE HCL 100 MG TABLET (FP) PO SCH (22:26)
[2021-01-20] MEDS: MELATONIN 5 MG TABLETS PO SCH (22:26)
[2021-01-21] MEDS ORDERED: diazePAM 5 MG TABLET PO SCH (06:00)
[2021-01-21] MEDS: LORazepam 1 MG TABLET PO SCH ×4 (06:15→22:12)
[2021-01-21] MEDS: SUCRALFATE 1 GM TABLET (FP) PO SCH ×2 (10:06→22:12)
[2021-01-21] MEDS: SULFAMETHOXAZOLE/TRIMETHOPRIM 800MG/160MG D.S. TABLET PO SCH (10:06)
[2021-01-21] MEDS: PRENATAL VITAMINS W/ FOLIC ACID TABLET (FP) PO SCH (10:07)
[2021-01-21] MEDS: ATAZANAVIR SO4 300 MG CAPSULE PO SCH ×2 (10:07→11:43)
[2021-01-21] MEDS: RITONAVIR 100 MG TABLET PO SCH (10:07)
[2021-01-21] MEDS: MELATONIN 5 MG TABLETS PO SCH (22:12)
[2021-01-21] MEDS: THIAMINE HCL 100 MG TABLET (FP) PO SCH (22:12)
[2021-01-22] MEDS ORDERED: LORazepam 0.5 MG TABLET PO PRN
[2021-01-22] MEDS: LORazepam 0.5 MG TABLET PO SCH ×4 (05:57→22:00)
[2021-01-22] MEDS ORDERED: diazePAM 5 MG TABLET PO SCH (06:00)
[2021-01-22] MEDS: ATAZANAVIR SO4 300 MG CAPSULE PO SCH (07:43)
[2021-01-22] MEDS: EMTRICITABINE 200MG/TENOFOVIR 300MG PO SCH (07:43)
[2021-01-22] MEDS: RITONAVIR 100 MG TABLET PO SCH (07:43)
[2021-01-22] MEDS: SUCRALFATE 1 GM TABLET (FP) PO SCH ×2 (09:55→21:58)
[2021-01-22] MEDS: SULFAMETHOXAZOLE/TRIMETHOPRIM 800MG/160MG D.S. TABLET PO SCH (09:56)
[2021-01-22] MEDS: PRENATAL VITAMINS W/ FOLIC ACID TABLET (FP) PO SCH (09:56)
[2021-01-22] MEDS: MELATONIN 5 MG TABLETS PO SCH (21:58)
[2021-01-22] MEDS: THIAMINE HCL 100 MG TABLET (FP) PO SCH (21:58)
[2021-01-23] MEDS ORDERED: LORazepam 0.5 MG TABLET PO ONE (05:00)
[2021-01-23] MEDS ORDERED: diazePAM 5 MG TABLET PO ONE (06:00)
[2021-01-23] MEDS: ATAZANAVIR SO4 300 MG CAPSULE PO SCH (06:02)
[2021-01-23] MEDS: RITONAVIR 100 MG TABLET PO SCH (06:02)
[2021-01-23] MEDS: SULFAMETHOXAZOLE/TRIMETHOPRIM 800MG/160MG D.S. TABLET PO SCH (09:38)
[2021-01-23] MEDS: SUCRALFATE 1 GM TABLET (FP) PO SCH ×2 (09:38→21:00)
[2021-01-23] MEDS: PRENATAL VITAMINS W/ FOLIC ACID TABLET (FP) PO SCH (09:38)
[2021-01-23] MEDS: MAG HYDROX/AL HYDROX/SIMETH 30 ML UNIT-DOSE CUP PO PRN (20:52)
[2021-01-23] MEDS: MELATONIN 5 MG TABLETS PO SCH (21:00)
[2021-01-23] MEDS: THIAMINE HCL 100 MG TABLET (FP) PO SCH (21:00)
[2021-01-24] MEDS: RITONAVIR 100 MG TABLET PO SCH (06:03)
[2021-01-24] MEDS: EMTRICITABINE 200MG/TENOFOVIR 300MG PO SCH (06:03)
[2021-01-24] MEDS: ATAZANAVIR SO4 300 MG CAPSULE PO SCH (06:03)
[2021-01-24] MEDS: PRENATAL VITAMINS W/ FOLIC ACID TABLET (FP) PO SCH (10:11)
[2021-01-24] MEDS: SULFAMETHOXAZOLE/TRIMETHOPRIM 800MG/160MG D.S. TABLET PO SCH (10:11)
[2021-01-24] MEDS: hydrOXYzine PAMOATE 25 MG CAPSULE (FP) PO PRN (10:12)
[2021-01-24] MEDS: SUCRALFATE 1 GM TABLET (FP) PO SCH ×2 (10:12→22:17)
[2021-01-24] MEDS: THIAMINE HCL 100 MG TABLET (FP) PO SCH (22:17)
[2021-01-24] MEDS: MELATONIN 5 MG TABLETS PO SCH (22:17)
[2021-01-24] MEDS: MAG HYDROX/AL HYDROX/SIMETH 30 ML UNIT-DOSE CUP PO PRN (22:18)
[2021-01-24 23:12] VITALS: BMI 30.6
[2021-01-25] MEDS: ATAZANAVIR SO4 300 MG CAPSULE PO SCH (06:21)
[2021-01-25] MEDS: RITONAVIR 100 MG TABLET PO SCH (06:21)
[2021-01-25] MEDS: hydrOXYzine PAMOATE 25 MG CAPSULE (FP) PO PRN (10:19)
[2021-01-25] MEDS: SULFAMETHOXAZOLE/TRIMETHOPRIM 800MG/160MG D.S. TABLET PO SCH (10:20)
[2021-01-25] MEDS: PRENATAL VITAMINS W/ FOLIC ACID TABLET (FP) PO SCH (10:20)
[2021-01-25] MEDS: SUCRALFATE 1 GM TABLET (FP) PO SCH ×2 (10:20→21:06)
[2021-01-25] MEDS: IBUPROFEN 400 MG TABLET (FP) PO PRN (17:59)
[2021-01-25] MEDS: MELATONIN 5 MG TABLETS PO SCH (21:06)
[2021-01-25] MEDS: THIAMINE HCL 100 MG TABLET (FP) PO SCH (21:06)
[2021-01-26] MEDS: RITONAVIR 100 MG TABLET PO SCH (06:17)
[2021-01-26] MEDS: ATAZANAVIR SO4 300 MG CAPSULE PO SCH (06:17)
[2021-01-26] MEDS: EMTRICITABINE 200MG/TENOFOVIR 300MG PO SCH (06:17)
[2021-01-26] MEDS: PRENATAL VITAMINS W/ FOLIC ACID TABLET (FP) PO SCH (10:28)
[2021-01-26] MEDS: SUCRALFATE 1 GM TABLET (FP) PO SCH ×2 (10:28→21:54)
[2021-01-26] MEDS: SULFAMETHOXAZOLE/TRIMETHOPRIM 800MG/160MG D.S. TABLET PO SCH (10:28)
[2021-01-26] MEDS: hydrOXYzine PAMOATE 25 MG CAPSULE (FP) PO PRN ×3 (10:30→18:56)
[2021-01-26] MEDS: IBUPROFEN 400 MG TABLET (FP) PO PRN (18:56)
[2021-01-26] MEDS: THIAMINE HCL 100 MG TABLET (FP) PO SCH (21:54)
[2021-01-26] MEDS: MELATONIN 5 MG TABLETS PO SCH (21:54)
[2021-01-27] MEDS: RITONAVIR 100 MG TABLET PO SCH (06:31)
[2021-01-27] MEDS: ATAZANAVIR SO4 300 MG CAPSULE PO SCH (06:31)
[2021-01-27] MEDS: hydrOXYzine PAMOATE 25 MG CAPSULE (FP) PO PRN ×4 (06:32→21:26)
[2021-01-27] MEDS: SULFAMETHOXAZOLE/TRIMETHOPRIM 800MG/160MG D.S. TABLET PO SCH (09:44)
[2021-01-27] MEDS: SUCRALFATE 1 GM TABLET (FP) PO SCH ×2 (09:44→21:26)
[2021-01-27] MEDS: PRENATAL VITAMINS W/ FOLIC ACID TABLET (FP) PO SCH (09:45)
[2021-01-27 16:55] VITALS: BP 131/85; PULSE 76; TEMP 97.3
[2021-01-27] MEDS: THIAMINE HCL 100 MG TABLET (FP) PO SCH (21:26)
[2021-01-27] MEDS: MELATONIN 5 MG TABLETS PO SCH (21:26)
[2021-01-28] MEDS: RITONAVIR 100 MG TABLET PO SCH (06:47)
[2021-01-28] MEDS: ATAZANAVIR SO4 300 MG CAPSULE PO SCH (06:47)
[2021-01-28] MEDS: EMTRICITABINE 200MG/TENOFOVIR 300MG PO SCH (06:47)
== END 2021-01-28 06:33 | disposition left against medical advice (07) | DRG 894 ==
LOC: YASAS 11:12 → Y3N 12:36 → Y3W 01-24 12:37
PROVIDERS: ADMIT Allergy & Immunology; ATTEND Allergy & Immunology
PROC: HZ2ZZZZ Detoxification Services for Substance Abuse Treatment (ICD-10-PCS; 2021-01-19)
PROC: HZ42ZZZ Group Counseling for Substance Abuse Treatment, Cognitive-Behavioral (ICD-10-PCS; principal; 2021-01-24)
DX: F10.20 Alcohol dependence, uncomplicated (principal); F14.20 Cocaine dependence, uncomplicated; F16.20 Hallucinogen dependence, uncomplicated; F10.982 Alcohol use, unspecified with alcohol-induced sleep disorder; F19.24 Other psychoactive substance dependence with psychoactive substance-induced mood disorder; Z21 Asymptomatic human immunodeficiency virus [HIV] infection status; I10 Essential (primary) hypertension; E78.5 Hyperlipidemia, unspecified; J45.20 Mild intermittent asthma, uncomplicated; H55.00 Unspecified nystagmus; R73.03 Prediabetes; E66.9 Obesity, unspecified; Z68.30 Body mass index [BMI] 30.0-30.9, adult; Z99.89 Dependence on other enabling machines and devices
CPT/HCPCS: 36415; 80053; 85027; 86780; C9803; U0003; U0005

== ENCOUNTER 2021-04-11 16:06 | Inpatient (IN) | payer OTHER ==
[2021-04-11 18:09] VITALS: BMI 32.1
[2021-04-11] MEDS ORDERED: ONDANSETRON *ODT* 4 MG TABLET SL PRN (23:10)
[2021-04-11] MEDS ORDERED: BISMUTH SUBSALICYLATE 524 MG/30 ML PO PRN (23:10)
[2021-04-11] MEDS ORDERED: MAGNESIUM CITRATE 300 ML BOTTLE PO PRN (23:10)
[2021-04-11] MEDS ORDERED: MENTHOL/PHENOL 1 EACH UD MM PRN (23:10)
[2021-04-11] MEDS ORDERED: ACETAMINOPHEN 325 MG TABLET (FP) PO PRN (23:10)
[2021-04-11] MEDS ORDERED: MAGNESIUM HYDROX 2400MG/30ML ORAL SUSPENSION 30 ML CUP PO PRN (23:10)
[2021-04-11] MEDS ORDERED: LORazepam 1 MG TABLET PO PRN (23:14)
[2021-04-12] MEDS: IBUPROFEN 400 MG TABLET (FP) PO PRN ×3 (00:33→16:41)
[2021-04-12] MEDS: METHOCARBAMOL 500 MG TABLET PO PRN ×3 (00:33→22:25)
[2021-04-12] MEDS: MAG HYDROX/AL HYDROX/SIMETH 30 ML UNIT-DOSE CUP PO PRN ×2 (00:33→16:40)
[2021-04-12] MEDS: LORazepam 1 MG TABLET PO SCH ×5 (00:35→22:56)
[2021-04-12] MEDS: PRENATAL VITAMINS W/ FOLIC ACID TABLET (FP) PO SCH (10:24)
[2021-04-12] MEDS: LIDOCAINE 5% TOPICAL PATCH TP SCH (15:03)
[2021-04-12] MEDS: LIDOCAINE PATCH REMOVAL MC SCH ×2 (22:23→23:37)
[2021-04-12] MEDS: THIAMINE HCL 100 MG TABLET (FP) PO SCH (22:25)
[2021-04-12] MEDS: MELATONIN 5 MG TABLETS PO SCH (22:25)
[2021-04-13] MEDS: MAG HYDROX/AL HYDROX/SIMETH 30 ML UNIT-DOSE CUP PO PRN (03:47)
[2021-04-13] MEDS: METHOCARBAMOL 500 MG TABLET PO PRN ×3 (03:47→17:33)
[2021-04-13] MEDS: IBUPROFEN 400 MG TABLET (FP) PO PRN ×3 (03:47→17:35)
[2021-04-13] MEDS: LORazepam 1 MG TABLET PO SCH ×4 (05:42→22:07)
[2021-04-13] MEDS: ACETAMINOPHEN 325 MG TABLET (FP) PO PRN ×2 (05:45→22:09)
[2021-04-13] MEDS ORDERED: ALBUTEROL SO4 HFA INHALER IH PRN (08:49)
[2021-04-13] MEDS ORDERED: EMTRICITABINE 200MG/TENOFOVIR 300MG PO SCH (09:00)
[2021-04-13] MEDS: LIDOCAINE 5% TOPICAL PATCH TP SCH (09:01)
[2021-04-13] MEDS: SULFAMETHOXAZOLE/TRIMETHOPRIM 800MG/160MG D.S. TABLET PO SCH (10:28)
[2021-04-13] MEDS: ATAZANAVIR SO4 300 MG CAPSULE PO SCH (10:29)
[2021-04-13] MEDS: RITONAVIR 100 MG TABLET PO SCH (10:30)
[2021-04-13] MEDS: PRENATAL VITAMINS W/ FOLIC ACID TABLET (FP) PO SCH (10:31)
[2021-04-13] MEDS: SUCRALFATE 1 GM TABLET (FP) PO SCH ×2 (11:28→22:06)
[2021-04-13] MEDS: THIAMINE HCL 100 MG TABLET (FP) PO SCH (22:07)
[2021-04-13] MEDS: MELATONIN 5 MG TABLETS PO SCH (22:07)
[2021-04-13] MEDS: LIDOCAINE PATCH REMOVAL MC SCH (22:07)
[2021-04-14] MEDS ORDERED: LORazepam 0.5 MG TABLET PO PRN
[2021-04-14] MEDS: MAG HYDROX/AL HYDROX/SIMETH 30 ML UNIT-DOSE CUP PO PRN ×2 (02:13→15:36)
[2021-04-14] MEDS: METHOCARBAMOL 500 MG TABLET PO PRN ×3 (02:15→17:09)
[2021-04-14] MEDS: RITONAVIR 100 MG TABLET PO SCH (06:01)
[2021-04-14] MEDS: ATAZANAVIR SO4 300 MG CAPSULE PO SCH (06:01)
[2021-04-14] MEDS: LORazepam 0.5 MG TABLET PO SCH ×4 (06:01→22:16)
[2021-04-14] MEDS: LIDOCAINE 5% TOPICAL PATCH TP SCH (10:13)
[2021-04-14] MEDS: SUCRALFATE 1 GM TABLET (FP) PO SCH ×2 (10:13→22:14)
[2021-04-14] MEDS: PRENATAL VITAMINS W/ FOLIC ACID TABLET (FP) PO SCH (10:13)
[2021-04-14] MEDS: SULFAMETHOXAZOLE/TRIMETHOPRIM 800MG/160MG D.S. TABLET PO SCH (10:14)
[2021-04-14 10:37] LABS: HEMATOCRIT 34.1 % (32.4-45.2); HEMOGLOBIN 11.6 GM/dL (10.7-15.3); MCH 29.2 pg (25.7-33.7); MEAN CELL VOLUME 85.8 fl (80-96); MEAN PLT VOLUME 8.1 fl (7.5-11.1); PLATELET COUNT 252 10^3/uL (134-434); RBC 3.97 M/mm3 (3.60-5.2); RDW 15.1 % (11.6-15.6); WHITE BLOOD COUNT 2.1 K/mm3 (4.0-10.0)
[2021-04-14 10:44] LABS: CALCIUM 9.4 mg/dL (8.5-10.1)
[2021-04-14 10:45] LABS: ALBUMIN 3.1 g/dl (3.4-5.0); BLOOD UREA NITROGEN 15.8 mg/dL (7-18)
[2021-04-14 10:48] LABS: CREATININE 1.1 mg/dL (0.55-1.3)
[2021-04-14 10:50] LABS: TOT PROT 7.5 g/dl (6.4-8.2)
[2021-04-14] MEDS: FAMOTIDINE 20 MG TABLET PO SCH (19:46)
[2021-04-14] MEDS: THIAMINE HCL 100 MG TABLET (FP) PO SCH (22:14)
[2021-04-14] MEDS: MELATONIN 5 MG TABLETS PO SCH (22:14)
[2021-04-14] MEDS: LIDOCAINE PATCH REMOVAL MC SCH (22:14)
[2021-04-14] MEDS: hydrOXYzine PAMOATE 25 MG CAPSULE (FP) PO PRN (22:15)
[2021-04-14] MEDS: IBUPROFEN 400 MG TABLET (FP) PO PRN (22:16)
[2021-04-15] MEDS: METHOCARBAMOL 500 MG TABLET PO PRN ×2 (03:27→18:18)
[2021-04-15] MEDS: ACETAMINOPHEN 325 MG TABLET (FP) PO PRN (03:27)
[2021-04-15] MEDS ORDERED: LORazepam 0.5 MG TABLET PO ONE (05:00)
[2021-04-15] MEDS: IBUPROFEN 400 MG TABLET (FP) PO PRN (06:35)
[2021-04-15] MEDS: MAG HYDROX/AL HYDROX/SIMETH 30 ML UNIT-DOSE CUP PO PRN (06:41)
[2021-04-15] MEDS: RITONAVIR 100 MG TABLET PO SCH (07:00)
[2021-04-15] MEDS: ATAZANAVIR SO4 300 MG CAPSULE PO SCH (07:00)
[2021-04-15] MEDS: EMTRICITABINE 200MG/TENOFOVIR 300MG PO SCH (07:01)
[2021-04-15] MEDS ORDERED: FAMOTIDINE 20 MG TABLET PO ONE (07:26)
[2021-04-15] MEDS: PRENATAL VITAMINS W/ FOLIC ACID TABLET (FP) PO SCH (10:11)
[2021-04-15] MEDS: SUCRALFATE 1 GM TABLET (FP) PO SCH (10:11)
[2021-04-15] MEDS: SULFAMETHOXAZOLE/TRIMETHOPRIM 800MG/160MG D.S. TABLET PO SCH (10:11)
[2021-04-15] MEDS: hydrOXYzine PAMOATE 25 MG CAPSULE (FP) PO PRN ×2 (10:12→18:16)
[2021-04-15] MEDS: LIDOCAINE 5% TOPICAL PATCH TP SCH (10:14)
[2021-04-15] MEDS: FAMOTIDINE 20 MG TABLET PO SCH (10:47)
[2021-04-15] MEDS: MELATONIN 5 MG TABLETS PO SCH (21:56)
[2021-04-15] MEDS: LIDOCAINE PATCH REMOVAL MC SCH (21:56)
[2021-04-15] MEDS: THIAMINE HCL 100 MG TABLET (FP) PO SCH (21:57)
[2021-04-16] MEDS ORDERED: PT OWN MED DRAWER 7, Y5N ONE ×3 (05:05→20:48)
[2021-04-16] MEDS: hydrOXYzine PAMOATE 25 MG CAPSULE (FP) PO PRN ×2 (06:11→10:13)
[2021-04-16] MEDS: METHOCARBAMOL 500 MG TABLET PO PRN ×2 (06:11→20:15)
[2021-04-16] MEDS: RITONAVIR 100 MG TABLET PO SCH ×2 (08:05→11:00)
[2021-04-16] MEDS: ATAZANAVIR SO4 300 MG CAPSULE PO SCH ×2 (08:05→10:59)
[2021-04-16] MEDS: PRENATAL VITAMINS W/ FOLIC ACID TABLET (FP) PO SCH (10:10)
[2021-04-16] MEDS: FAMOTIDINE 20 MG TABLET PO SCH (10:11)
[2021-04-16] MEDS: LIDOCAINE 5% TOPICAL PATCH TP SCH (10:11)
[2021-04-16] MEDS: SULFAMETHOXAZOLE/TRIMETHOPRIM 800MG/160MG D.S. TABLET PO SCH (10:11)
[2021-04-16] MEDS ORDERED: METHOCARBAMOL 500 MG TABLET PO PRN (10:38)
[2021-04-16] MEDS: SUCRALFATE 1 GM TABLET (FP) PO SCH ×3 (11:19→21:31)
[2021-04-16] MEDS ORDERED: hydrOXYzine PAMOATE 25 MG CAPSULE (FP) PO PRN (20:10)
[2021-04-16] MEDS: MELATONIN 5 MG TABLETS PO SCH (21:31)
[2021-04-16] MEDS: THIAMINE HCL 100 MG TABLET (FP) PO SCH (21:31)
[2021-04-16] MEDS: LIDOCAINE PATCH REMOVAL MC SCH (21:32)
[2021-04-17] MEDS: METHOCARBAMOL 500 MG TABLET PO PRN (06:25)
[2021-04-17] MEDS: RITONAVIR 100 MG TABLET PO SCH (06:26)
[2021-04-17] MEDS: ATAZANAVIR SO4 300 MG CAPSULE PO SCH (06:26)
[2021-04-17] MEDS: EMTRICITABINE 200MG/TENOFOVIR 300MG PO SCH (06:27)
[2021-04-17 06:49] VITALS: BP 102/70; PULSE 106; TEMP 97.1
[2021-04-17] MEDS: PRENATAL VITAMINS W/ FOLIC ACID TABLET (FP) PO SCH (10:32)
[2021-04-17] MEDS: SUCRALFATE 1 GM TABLET (FP) PO SCH (10:32)
[2021-04-17] MEDS: SULFAMETHOXAZOLE/TRIMETHOPRIM 800MG/160MG D.S. TABLET PO SCH (10:32)
[2021-04-17] MEDS: FAMOTIDINE 20 MG TABLET PO SCH (10:32)
[2021-04-17] MEDS: LIDOCAINE 5% TOPICAL PATCH TP SCH (10:33)
== END 2021-04-17 11:15 | disposition left against medical advice (07) | DRG 894 ==
LOC: YASAS 16:06 → Y3N 22:56 → UNDODISIN 04-15 11:06 → Y5N 04-15 11:12
PROVIDERS: ADMIT Allergy & Immunology; ATTEND Allergy & Immunology
PROC: HZ42ZZZ Group Counseling for Substance Abuse Treatment, Cognitive-Behavioral (ICD-10-PCS; principal; 2021-04-11)
DX: F10.20 Alcohol dependence, uncomplicated (principal); F14.20 Cocaine dependence, uncomplicated; F16.20 Hallucinogen dependence, uncomplicated; F19.282 Other psychoactive substance dependence with psychoactive substance-induced sleep disorder; F12.20 Cannabis dependence, uncomplicated; Z21 Asymptomatic human immunodeficiency virus [HIV] infection status; E78.5 Hyperlipidemia, unspecified; G47.00 Insomnia, unspecified; I10 Essential (primary) hypertension; J45.20 Mild intermittent asthma, uncomplicated; K21.9 Gastro-esophageal reflux disease without esophagitis; M54.5 Low back pain; G89.29 Other chronic pain; R73.03 Prediabetes; E66.9 Obesity, unspecified; Z68.32 Body mass index [BMI] 32.0-32.9, adult; Z99.89 Dependence on other enabling machines and devices; Z56.0 Unemployment, unspecified; Z59.0 Homelessness
CPT/HCPCS: 36415; 80053; 81025; 82962; 85027; 86780; C9803; U0003; U0005

== ENCOUNTER 2021-05-20 13:23 | Inpatient (IN) | payer OTHER ==
[2021-05-20 15:05] VITALS: BMI 31.3
[2021-05-20] MEDS ORDERED: NICOTINE 10 MG CARTRIDGE (INHALER) IH PRN (15:05)
[2021-05-20] MEDS ORDERED: MAGNESIUM CITRATE 300 ML BOTTLE PO PRN (15:05)
[2021-05-20] MEDS ORDERED: ONDANSETRON *ODT* 4 MG TABLET SL PRN (15:05)
[2021-05-20] MEDS ORDERED: BISMUTH SUBSALICYLATE 524 MG/30 ML PO PRN (15:05)
[2021-05-20] MEDS ORDERED: ACETAMINOPHEN 325 MG TABLET (FP) PO PRN (15:05)
[2021-05-20] MEDS ORDERED: MENTHOL/PHENOL 1 EACH UD MM PRN (15:05)
[2021-05-20] MEDS ORDERED: diazePAM 5 MG TABLET PO PRN (15:05)
[2021-05-20] MEDS ORDERED: MAGNESIUM HYDROX 2400MG/30ML ORAL SUSPENSION 30 ML CUP PO PRN (15:05)
[2021-05-20] MEDS ORDERED: IBUPROFEN 400 MG TABLET (FP) PO PRN (15:05)
[2021-05-20] MEDS: diazePAM 5 MG TABLET PO SCH ×2 (18:37→22:11)
[2021-05-20] MEDS: hydrOXYzine PAMOATE 25 MG CAPSULE (FP) PO SCH ×2 (18:37→22:12)
[2021-05-20] MEDS: PRENATAL VITAMINS W/ FOLIC ACID TABLET (FP) PO SCH (18:40)
[2021-05-20] MEDS ORDERED: MELATONIN 5 MG TABLETS PO SCH (22:00)
[2021-05-20] MEDS: MAG HYDROX/AL HYDROX/SIMETH 30 ML UNIT-DOSE CUP PO PRN (22:11)
[2021-05-20] MEDS: THIAMINE HCL 100 MG TABLET (FP) PO SCH (22:11)
[2021-05-20] MEDS: LIDOCAINE PATCH REMOVAL MC SCH (22:16)
[2021-05-21] MEDS: diazePAM 5 MG TABLET PO SCH ×2 (06:26→10:37)
[2021-05-21] MEDS: hydrOXYzine PAMOATE 25 MG CAPSULE (FP) PO SCH ×5 (06:26→22:40)
[2021-05-21] MEDS: ACETAMINOPHEN 325 MG TABLET (FP) PO PRN (10:39)
[2021-05-21] MEDS: PRENATAL VITAMINS W/ FOLIC ACID TABLET (FP) PO SCH (10:47)
[2021-05-21] MEDS: LIDOCAINE 5% TOPICAL PATCH TP SCH (11:01)
[2021-05-21] MEDS: METHOCARBAMOL 500 MG TABLET PO PRN ×2 (15:17→22:41)
[2021-05-21] MEDS ORDERED: LORazepam 2 MG TABLET PO PRN (15:20)
[2021-05-21] MEDS ORDERED: SULFAMETHOXAZOLE/TRIMETHOPRIM 800MG/160MG D.S. TABLET PO SCH (15:30)
[2021-05-21] MEDS: LORazepam 2 MG TABLET PO SCH ×2 (18:25→23:09)
[2021-05-21] MEDS ORDERED: SUVOREXANT 10 MG TABLET PO PRN (22:00)
[2021-05-21] MEDS: LIDOCAINE PATCH REMOVAL MC SCH (22:40)
[2021-05-21] MEDS: THIAMINE HCL 100 MG TABLET (FP) PO SCH (22:40)
[2021-05-21] MEDS: FAMOTIDINE 20 MG TABLET PO SCH (22:40)
[2021-05-21] MEDS: SUVOREXANT 10 MG TABLET PO PRN (22:41)
[2021-05-22] MEDS ORDERED: LORazepam 2 MG TABLET PO PRN (00:01)
[2021-05-22] MEDS ORDERED: LORazepam 0.5 MG TABLET PO PRN (05:10)
[2021-05-22] MEDS: METHOCARBAMOL 500 MG TABLET PO PRN ×2 (05:59→17:45)
[2021-05-22] MEDS: hydrOXYzine PAMOATE 25 MG CAPSULE (FP) PO SCH ×5 (05:59→22:40)
[2021-05-22] MEDS: LORazepam 0.5 MG TABLET PO SCH ×3 (05:59→22:43)
[2021-05-22] MEDS ORDERED: diazePAM 5 MG TABLET PO SCH (06:00)
[2021-05-22] MEDS: MAG HYDROX/AL HYDROX/SIMETH 30 ML UNIT-DOSE CUP PO PRN (06:01)
[2021-05-22] MEDS: LIDOCAINE 5% TOPICAL PATCH TP SCH (10:11)
[2021-05-22] MEDS: PRENATAL VITAMINS W/ FOLIC ACID TABLET (FP) PO SCH (10:11)
[2021-05-22] MEDS: FAMOTIDINE 20 MG TABLET PO SCH ×2 (10:11→22:44)
[2021-05-22 10:31] LABS: HEMATOCRIT 33.4 % (32.4-45.2); HEMOGLOBIN 11.2 GM/dL (10.7-15.3); MCH 30.1 pg (25.7-33.7); MCHC 33.6 g/dl (32.0-36.0); MEAN CELL VOLUME 89.4 fl (80-96); MEAN PLT VOLUME 7.5 fl (7.5-11.1); PLATELET COUNT 237 10^3/uL (134-434); RBC 3.74 M/mm3 (3.60-5.2); RDW 17.2 % (11.6-15.6); WHITE BLOOD COUNT 2.4 K/mm3 (4.0-10.0)
[2021-05-22 10:40] LABS: CALCIUM 9.2 mg/dL (8.5-10.1)
[2021-05-22 10:41] LABS: ALBUMIN 3.1 g/dl (3.4-5.0); BLOOD UREA NITROGEN 11.1 mg/dL (7-18)
[2021-05-22 10:44] LABS: CREATININE 0.9 mg/dL (0.55-1.3)
[2021-05-22 10:45] LABS: BILIRUBIN,TOTAL 0.4 mg/dL (0.2-1); TOT PROT 7.4 g/dl (6.4-8.2)
[2021-05-22] MEDS: ACETAMINOPHEN 325 MG TABLET (FP) PO PRN (17:45)
[2021-05-22] MEDS: THIAMINE HCL 100 MG TABLET (FP) PO SCH (22:40)
[2021-05-22] MEDS: LIDOCAINE PATCH REMOVAL MC SCH (22:43)
[2021-05-22] MEDS: SUVOREXANT 10 MG TABLET PO PRN (22:44)
[2021-05-23] MEDS: LORazepam 0.5 MG TABLET PO SCH ×2 (05:51→17:06)
[2021-05-23] MEDS: METHOCARBAMOL 500 MG TABLET PO PRN ×2 (05:53→16:44)
[2021-05-23] MEDS: hydrOXYzine PAMOATE 25 MG CAPSULE (FP) PO SCH ×5 (05:53→21:56)
[2021-05-23] MEDS ORDERED: diazePAM 5 MG TABLET PO SCH (06:00)
[2021-05-23] MEDS: LIDOCAINE 5% TOPICAL PATCH TP SCH (10:46)
[2021-05-23] MEDS: FAMOTIDINE 20 MG TABLET PO SCH ×2 (10:46→21:56)
[2021-05-23] MEDS: PRENATAL VITAMINS W/ FOLIC ACID TABLET (FP) PO SCH (10:46)
[2021-05-23] MEDS: MAG HYDROX/AL HYDROX/SIMETH 30 ML UNIT-DOSE CUP PO PRN (20:59)
[2021-05-23 21:07] VITALS: TEMP 98
[2021-05-23] MEDS: THIAMINE HCL 100 MG TABLET (FP) PO SCH (21:56)
[2021-05-23] MEDS: SUVOREXANT 10 MG TABLET PO PRN (21:56)
[2021-05-23] MEDS: LIDOCAINE PATCH REMOVAL MC SCH (22:08)
[2021-05-24] MEDS ORDERED: LORazepam 0.5 MG TABLET PO ONE (05:00)
[2021-05-24] MEDS ORDERED: diazePAM 5 MG TABLET PO ONE (06:00)
[2021-05-24] MEDS: hydrOXYzine PAMOATE 25 MG CAPSULE (FP) PO SCH ×2 (06:20→10:24)
[2021-05-24] MEDS: METHOCARBAMOL 500 MG TABLET PO PRN (06:22)
[2021-05-24 07:45] VITALS: BP 102/69; PULSE 88
[2021-05-24] MEDS: MAG HYDROX/AL HYDROX/SIMETH 30 ML UNIT-DOSE CUP PO PRN (10:23)
[2021-05-24] MEDS: FAMOTIDINE 20 MG TABLET PO SCH (10:23)
[2021-05-24] MEDS: PRENATAL VITAMINS W/ FOLIC ACID TABLET (FP) PO SCH (10:24)
[2021-05-24] MEDS: LIDOCAINE 5% TOPICAL PATCH TP SCH (10:24)
== END 2021-05-24 10:45 | disposition home or self-care (01) | DRG 897 ==
LOC: YASAS 13:23 → Y6N 17:46
PROVIDERS: ADMIT Allergy & Immunology; ATTEND Allergy & Immunology
PROC: HZ2ZZZZ Detoxification Services for Substance Abuse Treatment (ICD-10-PCS; principal; 2021-05-20)
DX: F10.230 Alcohol dependence with withdrawal, uncomplicated (principal); F14.20 Cocaine dependence, uncomplicated; F16.10 Hallucinogen abuse, uncomplicated; F32.9 Major depressive disorder, single episode, unspecified; Z21 Asymptomatic human immunodeficiency virus [HIV] infection status; E78.5 Hyperlipidemia, unspecified; J45.909 Unspecified asthma, uncomplicated; K21.9 Gastro-esophageal reflux disease without esophagitis; B18.2 Chronic viral hepatitis C; R73.03 Prediabetes; E66.9 Obesity, unspecified; Z68.31 Body mass index [BMI] 31.0-31.9, adult; Z99.89 Dependence on other enabling machines and devices
CPT/HCPCS: 36415; 80053; 85027; 86780; C9803; U0003; U0005

== ENCOUNTER 2021-11-08 11:46 | Inpatient (IN) | payer OTHER ==
[2021-11-08 15:15] VITALS: BMI 31.1
[2021-11-08] MEDS ORDERED: ONDANSETRON *ODT* 4 MG TABLET SL PRN (18:18)
[2021-11-08] MEDS ORDERED: MAGNESIUM CITRATE 300 ML BOTTLE PO PRN (18:18)
[2021-11-08] MEDS ORDERED: MAG HYDROX/AL HYDROX/SIMETH 30 ML UNIT-DOSE CUP PO PRN (18:18)
[2021-11-08] MEDS ORDERED: ACETAMINOPHEN 325 MG TABLET (FP) PO PRN ×2 (18:18)
[2021-11-08] MEDS ORDERED: LORazepam 1 MG TABLET PO PRN (18:18)
[2021-11-08] MEDS ORDERED: MENTHOL/PHENOL 1 EACH UD MM PRN (18:18)
[2021-11-08] MEDS ORDERED: MAGNESIUM HYDROX 2400MG/30ML ORAL SUSPENSION 30 ML CUP PO PRN (18:18)
[2021-11-08] MEDS ORDERED: METHOCARBAMOL 500 MG TABLET PO PRN (18:18)
[2021-11-08] MEDS ORDERED: LOPERAMIDE HCL 2 MG CAPSULE PO PRN (18:18)
[2021-11-08] MEDS ORDERED: BISMUTH SUBSALICYLATE 524 MG/30 ML PO PRN (18:18)
[2021-11-08] MEDS ORDERED: IBUPROFEN 400 MG TABLET (FP) PO PRN (18:18)
[2021-11-08] MEDS ORDERED: LORazepam 2 MG TABLET PO ONE (18:30)
[2021-11-08] MEDS ORDERED: guaiFENesin 200 MG/10 ML 10 ML UNIT-DOSE CUPS PO SCH (18:30)
[2021-11-08] MEDS ORDERED: ATOVAQUONE 750 MG/5 ML (UNIT-DOSE PACKAGING) PO SCH (22:00)
[2021-11-08] MEDS ORDERED: MELATONIN 5 MG TABLETS PO SCH (22:00)
[2021-11-08] MEDS ORDERED: P-EPHED 60MG/TRIPROLIDI 2.5MG TABLET PO SCH (22:00)
[2021-11-08] MEDS ORDERED: THIAMINE HCL 100 MG TABLET (FP) PO SCH (22:00)
[2021-11-08] MEDS ORDERED: GABAPENTIN 100 MG CAPSULE PO SCH (22:00)
[2021-11-08] MEDS ORDERED: LORazepam 2 MG TABLET PO SCH (23:00)
[2021-11-09 01:30] VITALS: BP 73/43; PULSE 101; TEMP 98.3
[2021-11-09] MEDS ORDERED: BICTEGRAV/EMTRICIT/TENOFOV (BIKTARVY) 50-200-25 MG TABLET PO SCH (10:00)
[2021-11-09] MEDS ORDERED: PRENATAL VITAMINS W/ FOLIC ACID TABLET (FP) PO SCH (10:00)
[2021-11-09] MEDS ORDERED: FAMOTIDINE 20 MG TABLET PO SCH (10:00)
[2021-11-10] MEDS ORDERED: LORazepam 1 MG TABLET PO SCH (05:00)
== END 2021-11-09 03:15 | disposition short-term general hospital (02) | DRG 897 ==
LOC: YASAS 11:46 → Y6N 17:59
PROVIDERS: ADMIT Allergy & Immunology; ATTEND Allergy & Immunology
PROC: HZ2ZZZZ Detoxification Services for Substance Abuse Treatment (ICD-10-PCS; principal; 2021-11-08)
DX: F10.230 Alcohol dependence with withdrawal, uncomplicated (principal); F14.20 Cocaine dependence, uncomplicated; Z21 Asymptomatic human immunodeficiency virus [HIV] infection status; K21.9 Gastro-esophageal reflux disease without esophagitis; K08.89 Other specified disorders of teeth and supporting structures; R29.6 Repeated falls; R73.03 Prediabetes; E66.9 Obesity, unspecified; Z68.31 Body mass index [BMI] 31.0-31.9, adult; Z86.19 Personal history of other infectious and parasitic diseases; Z87.09 Personal history of other diseases of the respiratory system; Z99.89 Dependence on other enabling machines and devices
CPT/HCPCS: 82962; 87811; 93005; 93010; C9803-CS; U0003; U0005

== ENCOUNTER 2021-11-09 02:34 | Inpatient (IN) | payer OTHER ==
[2021-11-09] MEDS ORDERED: SODIUM CHLORIDE 0.9% 500 ML INFUS.BAG IV ONE ×2 (02:37→03:06)
[2021-11-09] MEDS ORDERED: ONDANSETRON 4 MG/2 ML VIAL IVPUSH ONE ×2 (02:50→02:51)
[2021-11-09] MEDS ORDERED: MAG HYDROX/AL HYDROX/SIMETH -MYLANTA- ORAL SUSPENSION PO ONE (02:50)
[2021-11-09] MEDS ORDERED: FAMOTIDINE 20 MG/50 ML IVPB 20 MG/50 ML MG IVPB ONE ×2 (02:50→02:54)
[2021-11-09] MEDS ORDERED: HALOPERIDOL LACTATE 5 MG/ML IM ONE (02:51)
[2021-11-09 02:53] LABS: BASO % 0.2 % (0-2.0); EOS % 1.3 % (0-4.5); HEMATOCRIT 27.1 % (32.4-45.2); HEMOGLOBIN 8.9 GM/dL (10.7-15.3); LYMPH % 5.6 % (8-40); MCHC 32.9 g/dl (32.0-36.0); MEAN CELL VOLUME 82.2 fl (80-96); MEAN PLT VOLUME 7.4 fl (7.5-11.1); MONO % 5.6 % (3.8-10.2); NEUT % 87.3 % (42.8-82.8); PLATELET COUNT 191 10^3/uL (134-434); RBC 3.29 M/mm3 (3.60-5.2); RDW 17.5 % (11.6-15.6); WHITE BLOOD COUNT 4.2 K/mm3 (4.0-10.0)
[2021-11-09] MEDS ORDERED: MAG HYDROX/AL HYDROX/SIMETH 30 ML UNIT-DOSE CUP ONE (02:54)
[2021-11-09] MEDS ORDERED: ONDANSETRON 4 MG/2 ML VIAL ONE (02:54)
[2021-11-09] MEDS ORDERED: HALOPERIDOL LACTATE 5 MG/ML ONE (02:54)
[2021-11-09 02:59] LABS: INR 0.92 (0.83-1.09); PROTHROMBIN TIME (PATIENT) 10.6 SEC (9.7-13.0)
[2021-11-09 03:01] LABS: ACTIVATED PTT 18.3 SECONDS (25.2-36.5)
[2021-11-09] MEDS ORDERED: PANTOPRAZOLE SODIUM 40 MG VIAL IVPUSH ONE (03:10)
[2021-11-09] MEDS ORDERED: CEFTRIAXONE 1,000 MG in DEXTROSE 5%-WATER - 50 ML IVPB ONE (03:11)
[2021-11-09 03:14] LABS: ALBUMIN 3.3 g/dl (3.4-5.0); BLOOD UREA NITROGEN 19.1 mg/dL (7-18); CALCIUM 8.8 mg/dL (8.5-10.1); MAGNESIUM 1.9 mg/dL (1.8-2.4)
[2021-11-09 03:17] LABS: CREATININE 1.1 mg/dL (0.55-1.3)
[2021-11-09] MEDS ORDERED: CEFTRIAXONE 1 GM/50 ML BAG ONE (03:17)
[2021-11-09] MEDS ORDERED: PANTOPRAZOLE SODIUM 40 MG/100 ML BAG IVPB ONE (03:17)
[2021-11-09 03:19] LABS: BILIRUBIN,TOTAL 0.2 mg/dL (0.2-1); TOT PROT 7.6 g/dl (6.4-8.2)
[2021-11-09] MEDS ORDERED: OCTREOTIDE ACETATE 500 MCG/1 ML - 1 ML VIAL IVPUSH ONE (03:54)
[2021-11-09] MEDS ORDERED: HYDROCORTISONE SOD SUCCINATE 100 MG/2 ML VIAL IVPUSH ONE (03:58)
[2021-11-09] MEDS ORDERED: OCTREOTIDE ACETATE 200 MCG, OCTREOTIDE ACETATE 1,000 MCG in DEXTROSE 5%-WATER - 496 ML IVPB SCH ×2 (04:00→04:45)
[2021-11-09] MEDS ORDERED: HYDROCORTISONE SOD SUCCINATE 100 MG/2 ML VIAL ONE (04:36)
[2021-11-09] MEDS ORDERED: OCTREOTIDE ACETATE 500 MCG/1 ML - 1 ML VIAL ONE (04:37)
[2021-11-09] MEDS ORDERED: LORazepam 1 MG TABLET PO SCH (05:00)
[2021-11-09 06:10] LABS: ARTERIAL BLD GAS O2 SATURATION 99.6 % (95-98); ARTERIAL BLOOD GAS BASE EXCESS -4.3 mmol/L (-2-2); ARTERIAL BLOOD GAS pH 7.325 (7.350-7.450)
[2021-11-09 06:11] LABS: ALLENS TEST POSITIVE
[2021-11-09] MEDS ORDERED: SODIUM CHLORIDE 1,000 ML IV SCH (06:15)
[2021-11-09 06:54] LABS: HEMATOCRIT 23.7 % (32.4-45.2); HEMOGLOBIN 7.7 GM/dL (10.7-15.3); MCH 27.1 pg (25.7-33.7); MCHC 32.6 g/dl (32.0-36.0); MEAN CELL VOLUME 83.2 fl (80-96); PLATELET COUNT 160 10^3/uL (134-434); RBC 2.85 M/mm3 (3.60-5.2); RDW 17.5 % (11.6-15.6)
[2021-11-09] MEDS ORDERED: LORazepam 1 MG TABLET PO PRN (07:06)
[2021-11-09 07:31] LABS: MAGNESIUM 1.7 mg/dL (1.8-2.4)
[2021-11-09 07:34] LABS: PHOSPHOROUS 2.8 mg/dL (2.5-4.9)
[2021-11-09] MEDS ORDERED: MAGNESIUM SULF 50% (8.12 MEQ/2 ML-1 GM VIAL) IVPB ONE (09:36)
[2021-11-09] MEDS ORDERED: SODIUM CHLORIDE 500 ML IV STA (09:42)
[2021-11-09] MEDS ORDERED: DEXTROSE 5%-NORMAL SALINE 500 ML IV ONE (09:46)
[2021-11-09] MEDS: DEXTROSE 5%-NORMAL SALINE 1,000 ML IV SCH (10:02)
[2021-11-09 10:16] LABS: OPIATES, URI NEGATIVE (NEGATIVE); URINE BARBITURATES NEGATIVE (NEGATIVE)
[2021-11-09 10:17] LABS: METHADONE, UR NEGATIVE (NEGATIVE)
[2021-11-09 10:23] LABS: COCAINE, UR POSITIVE (NEGATIVE); PHENCYCLIDINE,URINE POSITIVE (NEGATIVE); URINE AMPHETAMINES NEGATIVE (NEGATIVE); URINE BENZODIAZEPINES POSITIVE (NEGATIVE)
[2021-11-09] MEDS: THIAMINE HCL 200 MG/2 ML VIAL IVPB SCH ×2 (10:23→10:27)
[2021-11-09] MEDS: MUPIROCIN 2% TOPICAL OINTMENT FOR DECOLONIZATION NS SCH ×2 (11:55→22:17)
[2021-11-09] MEDS ORDERED: LORazepam 2 MG/ML SDV VIAL IVPUSH PRN (12:53)
[2021-11-09 12:58] LABS: HEMOGLOBIN 9.3 GM/dL (10.7-15.3); MCH 26.8 pg (25.7-33.7); MCHC 32.2 g/dl (32.0-36.0); MEAN CELL VOLUME 83.4 fl (80-96); MEAN PLT VOLUME 8.1 fl (7.5-11.1); PLATELET COUNT 186 10^3/uL (134-434); RBC 3.47 M/mm3 (3.60-5.2); RDW 17.3 % (11.6-15.6)
[2021-11-09] MEDS: LORazepam 2 MG/ML SDV VIAL IVPUSH PRN ×2 (16:49→22:18)
[2021-11-09 19:05] LABS: BASO % 0.3 % (0-2.0); EOS % 0.1 % (0-4.5); HEMATOCRIT 27.5 % (32.4-45.2); HEMOGLOBIN 8.8 GM/dL (10.7-15.3); LYMPH % 15.9 % (8-40); MCH 26.7 pg (25.7-33.7); MEAN CELL VOLUME 83.3 fl (80-96); MEAN PLT VOLUME 7.7 fl (7.5-11.1); NEUT % 77.7 % (42.8-82.8); RDW 17.2 % (11.6-15.6); WHITE BLOOD COUNT 3.5 K/mm3 (4.0-10.0)
[2021-11-09 19:23] LABS: CALCIUM 8.2 mg/dL (8.5-10.1)
[2021-11-09 19:24] LABS: BLOOD UREA NITROGEN 12.1 mg/dL (7-18)
[2021-11-09 19:27] LABS: CREATININE 0.9 mg/dL (0.55-1.3)
[2021-11-09 19:28] LABS: PHOSPHOROUS 2.9 mg/dL (2.5-4.9)
[2021-11-09 20:08] LABS: PLATELET COUNT 89 10^3/uL (134-434); PLATELET ESTIMATE DECREASED
[2021-11-09] MEDS ORDERED: MELATONIN 5 MG TABLETS PO ONE (20:36)
[2021-11-09] MEDS: CHLORHEXIDINE GLUCONATE 4% CLEANSER FOR DECOLONIZATION TP SCH (22:17)
[2021-11-09] MEDS: PANTOPRAZOLE SODIUM 40 MG VIAL IVPUSH SCH (22:18)
[2021-11-09] MEDS ORDERED: ACETAMINOPHEN 325 MG TABLET (FP) PO PRN (23:56)
[2021-11-10] MEDS: ACETAMINOPHEN 325 MG TABLET (FP) PO PRN ×3 (00:17→23:36)
[2021-11-10] MEDS ORDERED: LORazepam 1 MG TABLET PO SCH (05:00)
[2021-11-10 05:08] LABS: SARS-CoV-2 NAA Not Detected (Not Detected)
[2021-11-10 07:25] LABS: CALCIUM 8.5 mg/dL (8.5-10.1)
[2021-11-10 07:26] LABS: BLOOD UREA NITROGEN 10.7 mg/dL (7-18); MAGNESIUM 1.7 mg/dL (1.8-2.4)
[2021-11-10 07:29] LABS: PHOSPHOROUS 2.1 mg/dL (2.5-4.9)
[2021-11-10 07:30] LABS: BILIRUBIN,TOTAL 0.3 mg/dL (0.2-1); TOT PROT 6.3 g/dl (6.4-8.2)
[2021-11-10 07:38] LABS: ALBUMIN 2.7 g/dl (3.4-5.0)
[2021-11-10 07:49] LABS: HEMATOCRIT 26.3 % (32.4-45.2); HEMOGLOBIN 8.5 GM/dL (10.7-15.3); MCH 26.7 pg (25.7-33.7); MCHC 32.2 g/dl (32.0-36.0); MEAN CELL VOLUME 82.9 fl (80-96); MEAN PLT VOLUME 7.9 fl (7.5-11.1); PLATELET COUNT 189 10^3/uL (134-434); RBC 3.17 M/mm3 (3.60-5.2); RDW 16.9 % (11.6-15.6)
[2021-11-10] MEDS ORDERED: MAGNESIUM 2GM/50ML STERILE WATER IVPB IVPB ONE (08:45)
[2021-11-10] MEDS ORDERED: NAPH,MB-DB/K PH,MBDB POWDER PACKET PO ONE (08:45)
[2021-11-10] MEDS ORDERED: cefTRIAXone SODIUM 1 GM VIAL ONE (09:17)
[2021-11-10] MEDS ORDERED: DEXTROSE 5%-WATER - 50 ML IVPB ONE (09:17)
[2021-11-10] MEDS: DEXTROSE 5%-NORMAL SALINE 1,000 ML IV SCH (09:24)
[2021-11-10] MEDS: MUPIROCIN 2% TOPICAL OINTMENT FOR DECOLONIZATION NS SCH ×2 (09:27→22:22)
[2021-11-10] MEDS: THIAMINE HCL 200 MG/2 ML VIAL IVPB SCH (09:28)
[2021-11-10] MEDS: PANTOPRAZOLE SODIUM 40 MG VIAL IVPUSH SCH (09:28)
[2021-11-10] MEDS: LORazepam 2 MG/ML SDV VIAL IVPUSH PRN ×2 (09:34→22:18)
[2021-11-10] MEDS ORDERED: CEFTRIAXONE 1 GM in DEXTROSE 5%-WATER - 50 ML IVPB SCH (10:00)
[2021-11-10] MEDS ORDERED: TETRACAINE/BENZOCAINE/BUTAMBEN 20 GM SPR TP ONE (10:27)
[2021-11-10] MEDS: CHLORHEXIDINE GLUCONATE 4% CLEANSER FOR DECOLONIZATION TP SCH (22:22)
[2021-11-10] MEDS: MELATONIN 5 MG TABLETS PO PRN (23:57)
[2021-11-11] MEDS ORDERED: LORazepam 0.5 MG TABLET PO PRN
[2021-11-11] MEDS ORDERED: LORazepam 0.5 MG TABLET PO SCH (05:00)
[2021-11-11] MEDS ORDERED: ACETAMINOPHEN 325 MG TABLET (FP) PO PRN (07:11)
[2021-11-11 07:54] LABS: HEMATOCRIT 25.6 % (32.4-45.2); HEMOGLOBIN 8.1 GM/dL (10.7-15.3); MCH 26.3 pg (25.7-33.7); MCHC 31.5 g/dl (32.0-36.0); MEAN CELL VOLUME 83.6 fl (80-96); MEAN PLT VOLUME 7.4 fl (7.5-11.1); PLATELET COUNT 176 10^3/uL (134-434); RBC 3.07 M/mm3 (3.60-5.2); RDW 17.3 % (11.6-15.6); WHITE BLOOD COUNT 2.2 K/mm3 (4.0-10.0)
[2021-11-11 07:59] LABS: CALCIUM 8.1 mg/dL (8.5-10.1)
[2021-11-11 08:00] LABS: ALBUMIN 2.5 g/dl (3.4-5.0); BLOOD UREA NITROGEN 7.5 mg/dL (7-18); MAGNESIUM 1.8 mg/dL (1.8-2.4)
[2021-11-11 08:03] LABS: PHOSPHOROUS 2.5 mg/dL (2.5-4.9)
[2021-11-11 08:04] LABS: TOT PROT 6.4 g/dl (6.4-8.2)
[2021-11-11 08:05] LABS: BILIRUBIN,TOTAL 0.3 mg/dL (0.2-1)
[2021-11-11] MEDS: PANTOPRAZOLE 40 MG TABLET PO SCH (09:57)
[2021-11-11] MEDS: THIAMINE HCL 200 MG/2 ML VIAL IVPB SCH (09:58)
[2021-11-11] MEDS ORDERED: PANTOPRAZOLE 40 MG TABLET PO SCH (10:00)
[2021-11-11] MEDS ORDERED: IRON SUCROSE INJECTION 300 MG in SODIUM CHLORIDE 235 ML IVPB ONE (10:15)
[2021-11-11] MEDS: LORazepam 2 MG/ML SDV VIAL IVPUSH PRN ×2 (10:25→17:37)
[2021-11-11] MEDS: BICTEGRAV/EMTRICIT/TENOFOV (BIKTARVY) 50-200-25 MG TABLET PO SCH (17:37)
[2021-11-11] MEDS: MELATONIN 5 MG TABLETS PO PRN (21:49)
[2021-11-11] MEDS ORDERED: MAG HYDROX/AL HYDROX/SIMETH 30 ML UNIT-DOSE CUP PO ONE (22:05)
[2021-11-12] MEDS ORDERED: LORazepam 0.5 MG TABLET PO ONE (05:00)
[2021-11-12] MEDS: THIAMINE HCL 200 MG/2 ML VIAL IVPB SCH (10:55)
[2021-11-12] MEDS: PANTOPRAZOLE 40 MG TABLET PO SCH (10:55)
[2021-11-12] MEDS: BICTEGRAV/EMTRICIT/TENOFOV (BIKTARVY) 50-200-25 MG TABLET PO SCH (10:55)
[2021-11-12] MEDS: LORazepam 2 MG/ML SDV VIAL IVPUSH PRN (11:04)
[2021-11-12] MEDS ORDERED: MAG HYDROX/AL HYDROX/SIMETH 30 ML UNIT-DOSE CUP PO PRN (15:04)
[2021-11-12 16:04] VITALS: BP 118/55; PULSE 81; TEMP 98.8
== END 2021-11-12 18:13 | disposition home or self-care (01) | DRG 378 ==
LOC: JER 02:34 → JERBED 03:17 → JICU 08:33 → J8W 11-10 18:20
PROVIDERS: ADMIT Internal Medicine Pulmonary Disease; ATTEND Internal Medicine
PROC: HZ2ZZZZ Detoxification Services for Substance Abuse Treatment (ICD-10-PCS; 2021-11-09)
PROC: 0DJ08ZZ Inspection of Upper Intestinal Tract, Via Natural or Artificial Opening Endoscopic (ICD-10-PCS; principal; 2021-11-10 10:00)
DX: K25.0 Acute gastric ulcer with hemorrhage (principal); J98.11 Atelectasis; E87.1 Hypo-osmolality and hyponatremia; I44.0 Atrioventricular block, first degree; I10 Essential (primary) hypertension; J45.909 Unspecified asthma, uncomplicated; B19.20 Unspecified viral hepatitis C without hepatic coma; R45.1 Restlessness and agitation; F10.10 Alcohol abuse, uncomplicated; F12.90 Cannabis use, unspecified, uncomplicated; K42.9 Umbilical hernia without obstruction or gangrene; F32.A Depression, unspecified; G47.00 Insomnia, unspecified; K29.70 Gastritis, unspecified, without bleeding; R73.03 Prediabetes; D50.9 Iron deficiency anemia, unspecified; K44.9 Diaphragmatic hernia without obstruction or gangrene; K21.00 Gastro-esophageal reflux disease with esophagitis, without bleeding; E66.9 Obesity, unspecified; Z68.30 Body mass index [BMI] 30.0-30.9, adult; Z21 Asymptomatic human immunodeficiency virus [HIV] infection status
CPT/HCPCS: 36415; 36600; 70450-TC; 71045-TC-FY; 71260-TC; 72125-TC; 74177-TC; 80048; 80053; 80307; 82272; 82728; 82803; 82962; 83540; 83550; 83605; 83615; 83690; 83735; 84100; 84484; 85025; 85027; 85045; 85384; 85610; 85730; 86850; 86900; 86901; 87040; 93005; 93010; 93306-TC; 97116-GP; 97161-GP; 99285-25; C9803-CS; J1756; Q9967; U0003; U0005

== ENCOUNTER 2022-06-21 19:46 | Inpatient (IN) | payer OTHER ==
[2022-06-21 20:38] VITALS: BMI 30.6
[2022-06-22] MEDS ORDERED: NICOTINE POLACRILEX 2 MG GUM BUC PRN (02:22)
[2022-06-22] MEDS ORDERED: MAGNESIUM HYDROX 2400MG/30ML ORAL SUSPENSION 30 ML CUP PO PRN (02:22)
[2022-06-22] MEDS ORDERED: BENZOCAINE/MENTHOL (CHLORASEPTIC ) LOZENGE MM PRN (02:22)
[2022-06-22] MEDS ORDERED: ACETAMINOPHEN 325 MG TABLET (FP) PO PRN ×2 (02:22)
[2022-06-22] MEDS ORDERED: IBUPROFEN 400 MG TABLET (FP) PO PRN (02:22)
[2022-06-22] MEDS ORDERED: ONDANSETRON *ODT* 4 MG TABLET SL PRN (02:22)
[2022-06-22] MEDS ORDERED: DICYCLOMINE HCL 10 MG CAPSULE PO PRN (02:22)
[2022-06-22] MEDS ORDERED: IBUPROFEN 600 MG TABLET (FP) PO PRN (02:22)
[2022-06-22] MEDS ORDERED: NALOXONE HCL (KLOXXADO) 8 MG SPRAY NS PRN (02:22)
[2022-06-22] MEDS ORDERED: LOPERAMIDE HCL 2 MG CAPSULE PO PRN (02:22)
[2022-06-22] MEDS ORDERED: MAGNESIUM CITRATE 300 ML BOTTLE PO PRN (02:22)
[2022-06-22] MEDS ORDERED: BISMUTH SUBSALICYLATE 524 MG/30 ML PO PRN (02:22)
[2022-06-22] MEDS: LORazepam 2 MG TABLET PO SCH ×4 (06:11→22:55)
[2022-06-22] MEDS: MAG HYDROX/AL HYDROX/SIMETH 30 ML UNIT-DOSE CUP PO PRN ×2 (06:13→14:45)
[2022-06-22] MEDS: PRENATAL VITAMINS W/ FOLIC ACID TABLET (FP) PO SCH (10:35)
[2022-06-22] MEDS: NICOTINE 14 MG/24 HOURS TOPICAL PATCH TD SCH (11:28)
[2022-06-22] MEDS ORDERED: FAMOTIDINE 20 MG TABLET PO ONE (15:30)
[2022-06-22] MEDS: BICTEGRAV/EMTRICIT/TENOFOV (BIKTARVY) 50-200-25 MG TABLET PO SCH (15:36)
[2022-06-22] MEDS ORDERED: FAMOTIDINE 20 MG TABLET PO SCH ×2 (18:00→22:00)
[2022-06-22] MEDS: METHOCARBAMOL 500 MG TABLET PO PRN (18:25)
[2022-06-22] MEDS: THIAMINE HCL 100 MG TABLET (FP) PO SCH (22:54)
[2022-06-22] MEDS: MELATONIN 5 MG TABLETS PO SCH (22:54)
[2022-06-23] MEDS: LORazepam 1 MG TABLET PO PRN ×2 (00:48→14:12)
[2022-06-23] MEDS: LORazepam 1 MG TABLET PO SCH ×4 (06:05→22:32)
[2022-06-23] MEDS: MAG HYDROX/AL HYDROX/SIMETH 30 ML UNIT-DOSE CUP PO PRN (06:07)
[2022-06-23] MEDS: BICTEGRAV/EMTRICIT/TENOFOV (BIKTARVY) 50-200-25 MG TABLET PO SCH (08:14)
[2022-06-23] MEDS: FAMOTIDINE 20 MG TABLET PO SCH ×2 (08:14→18:01)
[2022-06-23] MEDS: PRENATAL VITAMINS W/ FOLIC ACID TABLET (FP) PO SCH (10:08)
[2022-06-23] MEDS: NICOTINE 14 MG/24 HOURS TOPICAL PATCH TD SCH (10:08)
[2022-06-23] MEDS: THIAMINE HCL 100 MG TABLET (FP) PO SCH (22:32)
[2022-06-23] MEDS: MELATONIN 5 MG TABLETS PO SCH (22:32)
[2022-06-24] MEDS ORDERED: LORazepam 0.5 MG TABLET PO PRN
[2022-06-24] MEDS: LORazepam 0.5 MG TABLET PO SCH ×4 (06:28→22:09)
[2022-06-24] MEDS: BICTEGRAV/EMTRICIT/TENOFOV (BIKTARVY) 50-200-25 MG TABLET PO SCH (07:02)
[2022-06-24] MEDS: FAMOTIDINE 20 MG TABLET PO SCH ×2 (07:03→17:31)
[2022-06-24] MEDS: NICOTINE 14 MG/24 HOURS TOPICAL PATCH TD SCH (10:06)
[2022-06-24] MEDS: PRENATAL VITAMINS W/ FOLIC ACID TABLET (FP) PO SCH (10:06)
[2022-06-24 11:15] LABS: HEMOGLOBIN 10.2 GM/dL (10.7-15.3); MCH 27.8 pg (25.7-33.7); MCHC 32.1 g/dl (32.0-36.0); MEAN CELL VOLUME 86.8 fl (80-96); MEAN PLT VOLUME 7.6 fl (7.5-11.1); PLATELET COUNT 259 10^3/uL (134-434); RBC 3.68 M/mm3 (3.60-5.2); RDW 17.6 % (11.6-15.6); WHITE BLOOD COUNT 4.5 K/mm3 (4.0-10.0)
[2022-06-24 12:59] LABS: ALBUMIN 2.8 g/dl (3.4-5.0); BLOOD UREA NITROGEN 16.2 mg/dL (7-18); CALCIUM 8.8 mg/dL (8.5-10.1)
[2022-06-24 13:04] LABS: BILIRUBIN,TOTAL 0.1 mg/dL (0.2-1); TOT PROT 6.4 g/dl (6.4-8.2)
[2022-06-24] MEDS: MAG HYDROX/AL HYDROX/SIMETH 30 ML UNIT-DOSE CUP PO PRN (16:55)
[2022-06-24 18:12] VITALS: RESP 18
[2022-06-24] MEDS: THIAMINE HCL 100 MG TABLET (FP) PO SCH (22:09)
[2022-06-24] MEDS: METHOCARBAMOL 500 MG TABLET PO PRN (22:09)
[2022-06-24] MEDS: MELATONIN 5 MG TABLETS PO SCH (22:10)
[2022-06-25] MEDS ORDERED: LORazepam 0.5 MG TABLET PO ONE ×2 (05:00→11:30)
[2022-06-25] MEDS: METHOCARBAMOL 500 MG TABLET PO PRN (06:02)
[2022-06-25] MEDS: FAMOTIDINE 20 MG TABLET PO SCH (07:07)
[2022-06-25] MEDS: BICTEGRAV/EMTRICIT/TENOFOV (BIKTARVY) 50-200-25 MG TABLET PO SCH (07:07)
[2022-06-25] MEDS: PRENATAL VITAMINS W/ FOLIC ACID TABLET (FP) PO SCH (10:25)
[2022-06-25] MEDS: NICOTINE 14 MG/24 HOURS TOPICAL PATCH TD SCH (10:26)
[2022-06-25 13:05] VITALS: BP 126/68; PULSE 84; TEMP 97.7
== END 2022-06-25 15:39 | disposition home or self-care (01) | DRG 897 ==
LOC: YASAS 19:46 → Y3N 06-22 03:13
PROVIDERS: ADMIT Allergy & Immunology; ATTEND Allergy & Immunology
PROC: HZ2ZZZZ Detoxification Services for Substance Abuse Treatment (ICD-10-PCS; principal; 2022-06-22)
DX: F10.230 Alcohol dependence with withdrawal, uncomplicated (principal); F14.20 Cocaine dependence, uncomplicated; F16.20 Hallucinogen dependence, uncomplicated; F32.A Depression, unspecified; Z21 Asymptomatic human immunodeficiency virus [HIV] infection status; G47.00 Insomnia, unspecified; E78.5 Hyperlipidemia, unspecified; I10 Essential (primary) hypertension; J45.909 Unspecified asthma, uncomplicated; K21.9 Gastro-esophageal reflux disease without esophagitis; R73.03 Prediabetes; E66.9 Obesity, unspecified; Z68.30 Body mass index [BMI] 30.0-30.9, adult; Z99.89 Dependence on other enabling machines and devices; Z86.19 Personal history of other infectious and parasitic diseases
CPT/HCPCS: 36415; 80053; 82962; 85027; 86780; C9803-CS; U0003; U0005

== ENCOUNTER 2023-01-05 17:01 | Inpatient (IN) | payer OTHER ==
[2023-01-05 17:56] VITALS: BMI 26.4
[2023-01-05] MEDS ORDERED: P-EPHED 60MG/TRIPROLIDI 2.5MG TABLET PO PRN (19:55)
[2023-01-05] MEDS ORDERED: LOPERAMIDE HCL 2 MG CAPSULE PO PRN (19:55)
[2023-01-05] MEDS ORDERED: ONDANSETRON *ODT* 4 MG TABLET SL PRN (19:55)
[2023-01-05] MEDS ORDERED: NALOXONE HCL 0.4 MG/ML VIAL IM PRN (19:55)
[2023-01-05] MEDS ORDERED: ACETAMINOPHEN 325 MG TABLET (FP) PO PRN ×2 (19:55)
[2023-01-05] MEDS ORDERED: BENZONATATE 200 MG CAPSULE PO PRN (19:55)
[2023-01-05] MEDS ORDERED: DICYCLOMINE HCL 10 MG CAPSULE PO PRN (19:55)
[2023-01-05] MEDS ORDERED: MAGNESIUM HYDROX 2400MG/30ML ORAL SUSPENSION 30 ML CUP PO PRN (19:55)
[2023-01-05] MEDS ORDERED: BISMUTH SUBSALICYLATE 524 MG/30 ML PO PRN (19:55)
[2023-01-05] MEDS ORDERED: NALOXONE HCL (KLOXXADO) 8 MG SPRAY NS PRN (19:55)
[2023-01-05] MEDS ORDERED: BENZOCAINE/MENTHOL (CHLORASEPTIC ) LOZENGE MM PRN (19:55)
[2023-01-05] MEDS ORDERED: POLYETHYLENE GLYCOL (HEALTHYLAX) 3350 17 GM PACKET PO PRN (19:55)
[2023-01-05] MEDS ORDERED: MELATONIN 5 MG TABLETS PO SCH (22:00)
[2023-01-05] MEDS ORDERED: MELATONIN 5 MG TABLETS ONE (22:07)
[2023-01-05] MEDS: THIAMINE HCL 100 MG TABLET (FP) PO SCH (22:27)
[2023-01-05] MEDS: chlordiazePOXIDE HCL 25 MG CAPSULE PO SCH (22:28)
[2023-01-06] MEDS: MAG HYDROX/AL HYDROX/SIMETH 30 ML UNIT-DOSE CUP PO PRN ×2 (00:47→17:25)
[2023-01-06] MEDS: chlordiazePOXIDE HCL 25 MG CAPSULE PO SCH ×3 (05:11→17:23)
[2023-01-06] MEDS: PRENATAL VITAMINS W/ FOLIC ACID TABLET (FP) PO SCH (10:24)
[2023-01-06] MEDS: BICTEGRAV/EMTRICIT/TENOFOV (BIKTARVY) 50-200-25 MG TABLET PO SCH (10:24)
[2023-01-06] MEDS: FAMOTIDINE 20 MG TABLET PO SCH ×2 (10:24→22:15)
[2023-01-06] MEDS: LIDOCAINE 5% TOPICAL PATCH TP SCH (10:25)
[2023-01-06] MEDS: guaiFENesin 200 MG/10 ML 10 ML UNIT-DOSE CUPS PO PRN ×3 (10:28→22:17)
[2023-01-06] MEDS: chlordiazePOXIDE HCL 25 MG CAPSULE PO PRN (13:47)
[2023-01-06] MEDS ORDERED: FOLIC ACID 1 MG TABLET (FP) PO ONE (13:49)
[2023-01-06] MEDS: FOLIC ACID 1 MG TABLET (FP) PO SCH (14:11)
[2023-01-06] MEDS: MELATONIN 5 MG TABLETS PO SCH (22:15)
[2023-01-06] MEDS: THIAMINE HCL 100 MG TABLET (FP) PO SCH (22:15)
[2023-01-06] MEDS: LIDOCAINE PATCH REMOVAL MC SCH (22:17)
[2023-01-07] MEDS: MAG HYDROX/AL HYDROX/SIMETH 30 ML UNIT-DOSE CUP PO PRN ×2 (01:10→16:26)
[2023-01-07] MEDS ORDERED: chlordiazePOXIDE HCL 25 MG CAPSULE PO SCH (05:00)
[2023-01-07] MEDS ORDERED: chlordiazePOXIDE HCL 10 MG CAPSULE PO SCH (05:57)
[2023-01-07] MEDS: chlordiazePOXIDE HCL 10 MG CAPSULE PO SCH ×2 (06:06→10:02)
[2023-01-07] MEDS: chlordiazePOXIDE HCL 25 MG CAPSULE PO SCH ×3 (09:50→22:18)
[2023-01-07] MEDS: PRENATAL VITAMINS W/ FOLIC ACID TABLET (FP) PO SCH (10:02)
[2023-01-07] MEDS: BICTEGRAV/EMTRICIT/TENOFOV (BIKTARVY) 50-200-25 MG TABLET PO SCH (10:02)
[2023-01-07] MEDS: FOLIC ACID 1 MG TABLET (FP) PO SCH (10:02)
[2023-01-07] MEDS: FAMOTIDINE 20 MG TABLET PO SCH ×2 (10:02→22:18)
[2023-01-07] MEDS: LIDOCAINE 5% TOPICAL PATCH TP SCH (10:05)
[2023-01-07] MEDS: chlordiazePOXIDE HCL 25 MG CAPSULE PO PRN (16:26)
[2023-01-07] MEDS: MELATONIN 5 MG TABLETS PO SCH (22:18)
[2023-01-07] MEDS: THIAMINE HCL 100 MG TABLET (FP) PO SCH (22:18)
[2023-01-07] MEDS: LIDOCAINE PATCH REMOVAL MC SCH (22:19)
[2023-01-07] MEDS: guaiFENesin 200 MG/10 ML 10 ML UNIT-DOSE CUPS PO PRN (22:22)
[2023-01-08] MEDS ORDERED: chlordiazePOXIDE HCL 10 MG CAPSULE PO PRN
[2023-01-08] MEDS: MAG HYDROX/AL HYDROX/SIMETH 30 ML UNIT-DOSE CUP PO PRN ×2 (02:47→15:32)
[2023-01-08] MEDS ORDERED: chlordiazePOXIDE HCL 10 MG CAPSULE PO SCH (05:00)
[2023-01-08] MEDS: chlordiazePOXIDE HCL 25 MG CAPSULE PO SCH (05:43)
[2023-01-08] MEDS: BICTEGRAV/EMTRICIT/TENOFOV (BIKTARVY) 50-200-25 MG TABLET PO SCH (10:24)
[2023-01-08] MEDS: FOLIC ACID 1 MG TABLET (FP) PO SCH (10:24)
[2023-01-08] MEDS: FAMOTIDINE 20 MG TABLET PO SCH ×2 (10:24→22:34)
[2023-01-08] MEDS: LIDOCAINE 5% TOPICAL PATCH TP SCH (10:24)
[2023-01-08] MEDS: chlordiazePOXIDE HCL 10 MG CAPSULE PO SCH ×4 (10:25→22:34)
[2023-01-08] MEDS: PRENATAL VITAMINS W/ FOLIC ACID TABLET (FP) PO SCH (10:27)
[2023-01-08] MEDS: THIAMINE HCL 100 MG TABLET (FP) PO SCH (22:33)
[2023-01-08] MEDS: LIDOCAINE PATCH REMOVAL MC SCH (22:34)
[2023-01-08] MEDS: MELATONIN 5 MG TABLETS PO SCH (22:34)
[2023-01-09] MEDS ORDERED: chlordiazePOXIDE HCL 10 MG CAPSULE PO ONE (05:00)
[2023-01-09] MEDS: chlordiazePOXIDE HCL 10 MG CAPSULE PO SCH ×2 (05:56→17:33)
[2023-01-09] MEDS: MAG HYDROX/AL HYDROX/SIMETH 30 ML UNIT-DOSE CUP PO PRN ×2 (05:58→17:35)
[2023-01-09] MEDS: FOLIC ACID 1 MG TABLET (FP) PO SCH (09:51)
[2023-01-09] MEDS: BICTEGRAV/EMTRICIT/TENOFOV (BIKTARVY) 50-200-25 MG TABLET PO SCH (09:51)
[2023-01-09] MEDS: FAMOTIDINE 20 MG TABLET PO SCH ×2 (09:52→22:20)
[2023-01-09] MEDS: PRENATAL VITAMINS W/ FOLIC ACID TABLET (FP) PO SCH (09:52)
[2023-01-09] MEDS: LIDOCAINE 5% TOPICAL PATCH TP SCH (09:56)
[2023-01-09] MEDS: guaiFENesin 200 MG/10 ML 10 ML UNIT-DOSE CUPS PO PRN (17:34)
[2023-01-09] MEDS: MELATONIN 5 MG TABLETS PO SCH (22:20)
[2023-01-09] MEDS: THIAMINE HCL 100 MG TABLET (FP) PO SCH (22:20)
[2023-01-09] MEDS: LIDOCAINE PATCH REMOVAL MC SCH (22:23)
[2023-01-10] MEDS ORDERED: chlordiazePOXIDE HCL 10 MG CAPSULE PO ONE (05:00)
[2023-01-10] MEDS: LIDOCAINE 5% TOPICAL PATCH TP SCH (09:25)
[2023-01-10] MEDS: BICTEGRAV/EMTRICIT/TENOFOV (BIKTARVY) 50-200-25 MG TABLET PO SCH (09:25)
[2023-01-10] MEDS: FAMOTIDINE 20 MG TABLET PO SCH (09:25)
[2023-01-10] MEDS: PRENATAL VITAMINS W/ FOLIC ACID TABLET (FP) PO SCH (09:26)
[2023-01-10] MEDS: FOLIC ACID 1 MG TABLET (FP) PO SCH (09:26)
[2023-01-10 09:47] VITALS: BP 95/64; PULSE 87; RESP 16; TEMP 96.9
== END 2023-01-10 10:09 | disposition home or self-care (01) | DRG 897 ==
LOC: YASAS 17:01 → Y6N 21:37
PROVIDERS: ADMIT Allergy & Immunology; ATTEND Allergy & Immunology
PROC: HZ2ZZZZ Detoxification Services for Substance Abuse Treatment (ICD-10-PCS; principal; 2023-01-05)
DX: F10.230 Alcohol dependence with withdrawal, uncomplicated (principal); F14.20 Cocaine dependence, uncomplicated; F16.20 Hallucinogen dependence, uncomplicated; F19.282 Other psychoactive substance dependence with psychoactive substance-induced sleep disorder; F32.9 Major depressive disorder, single episode, unspecified; F19.24 Other psychoactive substance dependence with psychoactive substance-induced mood disorder; Z21 Asymptomatic human immunodeficiency virus [HIV] infection status; I10 Essential (primary) hypertension; K21.9 Gastro-esophageal reflux disease without esophagitis; B18.2 Chronic viral hepatitis C; J45.909 Unspecified asthma, uncomplicated; R73.03 Prediabetes; Z86.19 Personal history of other infectious and parasitic diseases; Z87.891 Personal history of nicotine dependence; Z99.89 Dependence on other enabling machines and devices
CPT/HCPCS: 26055; 87811; C9803-CS; U0003; U0005

== ENCOUNTER 2023-01-21 16:17 | Inpatient (IN) | payer OTHER ==
[2023-01-21 17:18] VITALS: BMI 28.5
[2023-01-21] MEDS ORDERED: BENZONATATE 200 MG CAPSULE PO PRN (18:19)
[2023-01-21] MEDS ORDERED: BENZOCAINE/MENTHOL (CHLORASEPTIC ) LOZENGE MM PRN (18:19)
[2023-01-21] MEDS ORDERED: P-EPHED 60MG/TRIPROLIDI 2.5MG TABLET PO PRN (18:19)
[2023-01-21] MEDS ORDERED: NALOXONE HCL 0.4 MG/ML VIAL IM PRN (18:19)
[2023-01-21] MEDS ORDERED: MELATONIN 5 MG TABLETS PO PRN ×2 (18:19→18:23)
[2023-01-21] MEDS ORDERED: IBUPROFEN 400 MG TABLET (FP) PO PRN (18:19)
[2023-01-21] MEDS ORDERED: ACETAMINOPHEN 325 MG TABLET (FP) PO PRN (18:19)
[2023-01-21] MEDS ORDERED: POLYETHYLENE GLYCOL (HEALTHYLAX) 3350 17 GM PACKET PO PRN (18:19)
[2023-01-21] MEDS ORDERED: LOPERAMIDE HCL 2 MG CAPSULE PO PRN (18:19)
[2023-01-21] MEDS ORDERED: guaiFENesin 600 MG TABLET.ER (FP) PO PRN (18:19)
[2023-01-21] MEDS ORDERED: IBUPROFEN 600 MG TABLET (FP) PO PRN (18:19)
[2023-01-21] MEDS ORDERED: NALOXONE HCL (KLOXXADO) 8 MG SPRAY NS PRN (18:19)
[2023-01-21] MEDS ORDERED: ONDANSETRON *ODT* 4 MG TABLET SL PRN (18:19)
[2023-01-21] MEDS ORDERED: BISMUTH SUBSALICYLATE 524 MG/30 ML PO PRN (18:19)
[2023-01-21] MEDS ORDERED: MAGNESIUM HYDROX 2400MG/30ML ORAL SUSPENSION 30 ML CUP PO PRN (18:19)
[2023-01-21] MEDS ORDERED: FOLIC ACID 1 MG TABLET (FP) PO SCH (18:30)
[2023-01-21] MEDS: chlordiazePOXIDE HCL 25 MG CAPSULE PO SCH (22:30)
[2023-01-21] MEDS: FAMOTIDINE 20 MG TABLET PO SCH (22:32)
[2023-01-21] MEDS: THIAMINE HCL 100 MG TABLET (FP) PO SCH (22:33)
[2023-01-22] MEDS: chlordiazePOXIDE HCL 25 MG CAPSULE PO SCH ×4 (05:53→23:02)
[2023-01-22] MEDS: MAG HYDROX/AL HYDROX/SIMETH 30 ML UNIT-DOSE CUP PO PRN (05:55)
[2023-01-22] MEDS: guaiFENesin 200 MG/10 ML 10 ML UNIT-DOSE CUPS PO PRN (07:51)
[2023-01-22 09:48] LABS: HEMOGLOBIN 9.8 GM/dL (10.7-15.3); MCHC 32.6 g/dl (32.0-36.0); MEAN CELL VOLUME 82.7 fl (80-96); MEAN PLT VOLUME 8.1 fl (7.5-11.1); PLATELET COUNT 249 10^3/uL (134-434); RBC 3.63 M/mm3 (3.60-5.2); RDW 17.2 % (11.6-15.6); WHITE BLOOD COUNT 3.2 K/mm3 (4.0-10.0)
[2023-01-22 09:57] LABS: CALCIUM 9.4 mg/dL (8.5-10.1); POTASSIUM 4.4 mmol/L (3.5-5.1)
[2023-01-22 09:59] LABS: ALBUMIN 2.6 g/dl (3.4-5.0); BLOOD UREA NITROGEN 18.1 mg/dL (7-18)
[2023-01-22 10:04] LABS: BILIRUBIN,TOTAL 0.4 mg/dL (0.2-1); TOT PROT 6.5 g/dl (6.4-8.2)
[2023-01-22] MEDS: FAMOTIDINE 20 MG TABLET PO SCH ×2 (10:47→23:03)
[2023-01-22] MEDS: BICTEGRAV/EMTRICIT/TENOFOV (BIKTARVY) 50-200-25 MG TABLET PO SCH (10:48)
[2023-01-22] MEDS: PRENATAL VITAMINS W/ FOLIC ACID TABLET (FP) PO SCH (10:48)
[2023-01-22] MEDS: THIAMINE HCL 100 MG TABLET (FP) PO SCH (23:02)
[2023-01-22] MEDS: FERROUS SO4 325 MG TABLET (FP) PO SCH (23:02)
[2023-01-22] MEDS: ASCORBIC ACID 500 MG TABLET (FP) PO SCH (23:31)
[2023-01-23] MEDS: chlordiazePOXIDE HCL 25 MG CAPSULE PO SCH ×4 (05:55→22:11)
[2023-01-23] MEDS: guaiFENesin 200 MG/10 ML 10 ML UNIT-DOSE CUPS PO PRN ×2 (06:11→10:29)
[2023-01-23] MEDS: PRENATAL VITAMINS W/ FOLIC ACID TABLET (FP) PO SCH (10:27)
[2023-01-23] MEDS: FAMOTIDINE 20 MG TABLET PO SCH ×2 (10:28→22:11)
[2023-01-23] MEDS: FERROUS SO4 325 MG TABLET (FP) PO SCH ×2 (10:28→22:11)
[2023-01-23] MEDS: ASCORBIC ACID 500 MG TABLET (FP) PO SCH (10:28)
[2023-01-23] MEDS: BICTEGRAV/EMTRICIT/TENOFOV (BIKTARVY) 50-200-25 MG TABLET PO SCH (10:28)
[2023-01-23] MEDS ORDERED: chlordiazePOXIDE HCL 25 MG CAPSULE PO PRN (16:10)
[2023-01-23] MEDS: MAG HYDROX/AL HYDROX/SIMETH 30 ML UNIT-DOSE CUP PO PRN (21:57)
[2023-01-23] MEDS: SUVOREXANT 10 MG TABLET PO PRN (22:10)
[2023-01-23] MEDS: THIAMINE HCL 100 MG TABLET (FP) PO SCH (22:11)
[2023-01-24] MEDS: chlordiazePOXIDE HCL 10 MG CAPSULE PO SCH ×4 (05:38→23:22)
[2023-01-24] MEDS: guaiFENesin 200 MG/10 ML 10 ML UNIT-DOSE CUPS PO PRN (05:39)
[2023-01-24] MEDS ORDERED: chlordiazePOXIDE HCL 10 MG CAPSULE PO PRN (08:51)
[2023-01-24] MEDS: FAMOTIDINE 20 MG TABLET PO SCH ×2 (10:24→22:23)
[2023-01-24] MEDS: PRENATAL VITAMINS W/ FOLIC ACID TABLET (FP) PO SCH (10:24)
[2023-01-24] MEDS: FERROUS SO4 325 MG TABLET (FP) PO SCH ×2 (10:24→22:24)
[2023-01-24] MEDS: ASCORBIC ACID 500 MG TABLET (FP) PO SCH (10:24)
[2023-01-24] MEDS: BICTEGRAV/EMTRICIT/TENOFOV (BIKTARVY) 50-200-25 MG TABLET PO SCH (10:24)
[2023-01-24] MEDS: MAG HYDROX/AL HYDROX/SIMETH 30 ML UNIT-DOSE CUP PO PRN ×2 (10:25→17:16)
[2023-01-24] MEDS ORDERED: PANTOPRAZOLE 20 MG TABLET PO ONE (19:54)
[2023-01-24] MEDS ORDERED: MAG HYDROX/AL HYDROX/SIMETH 30 ML UNIT-DOSE CUP PO ONE (21:15)
[2023-01-24] MEDS: THIAMINE HCL 100 MG TABLET (FP) PO SCH (22:23)
[2023-01-24] MEDS: SUVOREXANT 10 MG TABLET PO PRN (22:26)
[2023-01-25] MEDS: chlordiazePOXIDE HCL 10 MG CAPSULE PO SCH ×2 (05:32→17:08)
[2023-01-25] MEDS: MAG HYDROX/AL HYDROX/SIMETH 30 ML UNIT-DOSE CUP PO PRN ×2 (05:33→17:42)
[2023-01-25] MEDS: FERROUS SO4 325 MG TABLET (FP) PO SCH ×2 (10:04→22:15)
[2023-01-25] MEDS: PRENATAL VITAMINS W/ FOLIC ACID TABLET (FP) PO SCH (10:04)
[2023-01-25] MEDS: BICTEGRAV/EMTRICIT/TENOFOV (BIKTARVY) 50-200-25 MG TABLET PO SCH (10:04)
[2023-01-25] MEDS: FAMOTIDINE 20 MG TABLET PO SCH ×2 (10:05→22:15)
[2023-01-25] MEDS: ASCORBIC ACID 500 MG TABLET (FP) PO SCH (10:05)
[2023-01-25] MEDS: SUVOREXANT 10 MG TABLET PO PRN (21:50)
[2023-01-25] MEDS: THIAMINE HCL 100 MG TABLET (FP) PO SCH (22:15)
[2023-01-26] MEDS ORDERED: chlordiazePOXIDE HCL 10 MG CAPSULE PO ONE (05:00)
[2023-01-26] MEDS: guaiFENesin 200 MG/10 ML 10 ML UNIT-DOSE CUPS PO PRN (06:04)
[2023-01-26 06:20] VITALS: RESP 18
[2023-01-26 09:52] VITALS: BP 108/68; PULSE 82; TEMP 96.9
[2023-01-26] MEDS: ASCORBIC ACID 500 MG TABLET (FP) PO SCH (10:33)
[2023-01-26] MEDS: FAMOTIDINE 20 MG TABLET PO SCH (10:33)
[2023-01-26] MEDS: BICTEGRAV/EMTRICIT/TENOFOV (BIKTARVY) 50-200-25 MG TABLET PO SCH (10:33)
[2023-01-26] MEDS: FERROUS SO4 325 MG TABLET (FP) PO SCH (10:33)
[2023-01-26] MEDS: PRENATAL VITAMINS W/ FOLIC ACID TABLET (FP) PO SCH (10:33)
== END 2023-01-26 12:46 | disposition home or self-care (01) | DRG 897 ==
LOC: YASAS 16:17 → Y6N 19:56
PROVIDERS: ADMIT Allergy & Immunology; ATTEND Surgery
PROC: HZ2ZZZZ Detoxification Services for Substance Abuse Treatment (ICD-10-PCS; principal; 2023-01-21)
DX: F10.230 Alcohol dependence with withdrawal, uncomplicated (principal); F14.20 Cocaine dependence, uncomplicated; Z21 Asymptomatic human immunodeficiency virus [HIV] infection status; D50.9 Iron deficiency anemia, unspecified; K21.9 Gastro-esophageal reflux disease without esophagitis; Z86.19 Personal history of other infectious and parasitic diseases; R26.89 Other abnormalities of gait and mobility; Z99.89 Dependence on other enabling machines and devices
CPT/HCPCS: 26055; 36415; 80053; 85027; 86780; 87635; 93005; 93010

== ENCOUNTER 2023-04-04 16:47 | Inpatient (IN) | payer OTHER ==
[2023-04-04] MEDS ORDERED: MAG HYDROX/AL HYDROX/SIMETH 30 ML UNIT-DOSE CUP PO PRN (21:42)
[2023-04-04] MEDS ORDERED: BENZONATATE 200 MG CAPSULE PO PRN (21:42)
[2023-04-04] MEDS ORDERED: MAGNESIUM HYDROX 2400MG/30ML ORAL SUSPENSION 30 ML CUP PO PRN (21:42)
[2023-04-04] MEDS ORDERED: P-EPHED 60MG/TRIPROLIDI 2.5MG TABLET PO PRN (21:42)
[2023-04-04] MEDS ORDERED: POLYETHYLENE GLYCOL (HEALTHYLAX) 3350 17 GM PACKET PO PRN (21:42)
[2023-04-04] MEDS ORDERED: ACETAMINOPHEN 325 MG TABLET (FP) PO PRN (21:42)
[2023-04-04] MEDS ORDERED: BENZOCAINE/MENTHOL (CHLORASEPTIC ) LOZENGE MM PRN (21:42)
[2023-04-04] MEDS ORDERED: IBUPROFEN 600 MG TABLET (FP) PO PRN (21:42)
[2023-04-04] MEDS ORDERED: ONDANSETRON *ODT* 4 MG TABLET SL PRN (21:42)
[2023-04-04] MEDS ORDERED: guaiFENesin 600 MG TABLET.ER (FP) PO PRN (21:42)
[2023-04-04] MEDS ORDERED: LOPERAMIDE HCL 2 MG CAPSULE PO PRN (21:42)
[2023-04-04] MEDS ORDERED: BISMUTH SUBSALICYLATE 524 MG/30 ML PO PRN (21:42)
[2023-04-04] MEDS ORDERED: chlordiazePOXIDE HCL 25 MG CAPSULE PO PRN (21:44)
[2023-04-04] MEDS ORDERED: MELATONIN 5 MG TABLETS PO SCH (22:00)
[2023-04-04] MEDS ORDERED: MELATONIN 5 MG TABLETS ONE (22:11)
[2023-04-04] MEDS: THIAMINE HCL 100 MG TABLET (FP) PO SCH (22:14)
[2023-04-04] MEDS: chlordiazePOXIDE HCL 25 MG CAPSULE PO SCH (22:46)
[2023-04-05] MEDS: chlordiazePOXIDE HCL 25 MG CAPSULE PO SCH ×4 (05:23→22:13)
[2023-04-05] MEDS: BICTEGRAV/EMTRICIT/TENOFOV (BIKTARVY) 50-200-25 MG TABLET PO SCH (07:10)
[2023-04-05] MEDS: PANTOPRAZOLE 40 MG TABLET PO SCH (10:23)
[2023-04-05] MEDS: PRENATAL VITAMINS W/ FOLIC ACID TABLET (FP) PO SCH (10:23)
[2023-04-05] MEDS: FAMOTIDINE 20 MG TABLET PO SCH (10:23)
[2023-04-05] MEDS: FOLIC ACID 1 MG TABLET (FP) PO SCH (10:24)
[2023-04-05] MEDS ORDERED: PNEUMOC 20-VAL CONJ-DIP CRM/PF 0.5 ML SYRINGE IM ONE (12:00)
[2023-04-05] MEDS ORDERED: COLLOIDAL OATMEAL 1 BAR EACH TP PRN (14:21)
[2023-04-05] MEDS ORDERED: MELATONIN 5 MG TABLETS PO SCH (22:00)
[2023-04-05] MEDS: THIAMINE HCL 100 MG TABLET (FP) PO SCH (22:13)
[2023-04-06] MEDS: chlordiazePOXIDE HCL 25 MG CAPSULE PO SCH ×4 (05:25→22:01)
[2023-04-06] MEDS: BICTEGRAV/EMTRICIT/TENOFOV (BIKTARVY) 50-200-25 MG TABLET PO SCH (07:48)
[2023-04-06] MEDS: FOLIC ACID 1 MG TABLET (FP) PO SCH (10:07)
[2023-04-06] MEDS: FAMOTIDINE 20 MG TABLET PO SCH (10:07)
[2023-04-06] MEDS ORDERED: LIDOCAINE 5% TOPICAL PATCH TP PRN (10:07)
[2023-04-06] MEDS: PRENATAL VITAMINS W/ FOLIC ACID TABLET (FP) PO SCH (10:09)
[2023-04-06] MEDS: PANTOPRAZOLE 40 MG TABLET PO SCH (10:24)
[2023-04-06 10:38] LABS: HEMATOCRIT 32.9 % (32.4-45.2); HEMOGLOBIN 10.5 GM/dL (10.7-15.3); MCH 26.5 pg (25.7-33.7); MCHC 31.8 g/dl (32.0-36.0); MEAN CELL VOLUME 83.2 fl (80-96); MEAN PLT VOLUME 7.7 fl (7.5-11.1); PLATELET COUNT 257 10^3/uL (134-434); RBC 3.96 M/mm3 (3.60-5.2); RDW 20.1 % (11.6-15.6); WHITE BLOOD COUNT 3.6 K/mm3 (4.0-10.0)
[2023-04-06 12:57] LABS: POTASSIUM 4.6 mmol/L (3.5-5.1)
[2023-04-06 13:22] LABS: ALBUMIN 3.2 g/dl (3.4-5.0)
[2023-04-06 13:23] LABS: BILIRUBIN,TOTAL 0.4 mg/dL (0.2-1)
[2023-04-06 13:25] LABS: BLOOD UREA NITROGEN 16.9 mg/dL (7-18); CALCIUM 8.9 mg/dL (8.5-10.1); TOT PROT 7.3 g/dl (6.4-8.2)
[2023-04-06] MEDS: IBUPROFEN 400 MG TABLET (FP) PO PRN (17:28)
[2023-04-06] MEDS ORDERED: LIDOCAINE PATCH REMOVAL MC PRN (22:00)
[2023-04-06] MEDS: SUVOREXANT 10 MG TABLET PO PRN (22:01)
[2023-04-06] MEDS: THIAMINE HCL 100 MG TABLET (FP) PO SCH (22:01)
[2023-04-07] MEDS ORDERED: chlordiazePOXIDE HCL 10 MG CAPSULE PO PRN
[2023-04-07] MEDS: chlordiazePOXIDE HCL 10 MG CAPSULE PO SCH ×4 (05:37→22:41)
[2023-04-07] MEDS: BICTEGRAV/EMTRICIT/TENOFOV (BIKTARVY) 50-200-25 MG TABLET PO SCH (07:18)
[2023-04-07] MEDS: PRENATAL VITAMINS W/ FOLIC ACID TABLET (FP) PO SCH (10:16)
[2023-04-07] MEDS: FOLIC ACID 1 MG TABLET (FP) PO SCH (10:16)
[2023-04-07] MEDS: FAMOTIDINE 20 MG TABLET PO SCH (10:19)
[2023-04-07] MEDS: hydrOXYzine PAMOATE 25 MG CAPSULE (FP) PO ONE ×2 (11:54→12:01)
[2023-04-07] MEDS: THIAMINE HCL 100 MG TABLET (FP) PO SCH (22:41)
[2023-04-07] MEDS: SUVOREXANT 10 MG TABLET PO PRN (22:41)
[2023-04-08] MEDS: chlordiazePOXIDE HCL 10 MG CAPSULE PO SCH ×2 (05:49→17:32)
[2023-04-08] MEDS: BICTEGRAV/EMTRICIT/TENOFOV (BIKTARVY) 50-200-25 MG TABLET PO SCH (07:14)
[2023-04-08] MEDS: PRENATAL VITAMINS W/ FOLIC ACID TABLET (FP) PO SCH (10:15)
[2023-04-08] MEDS: FOLIC ACID 1 MG TABLET (FP) PO SCH (10:15)
[2023-04-08] MEDS: FAMOTIDINE 20 MG TABLET PO SCH (10:15)
[2023-04-08] MEDS: IBUPROFEN 400 MG TABLET (FP) PO PRN (17:34)
[2023-04-08] MEDS: SUVOREXANT 10 MG TABLET PO PRN (22:38)
[2023-04-08] MEDS: THIAMINE HCL 100 MG TABLET (FP) PO SCH (22:38)
[2023-04-09] MEDS ORDERED: chlordiazePOXIDE HCL 10 MG CAPSULE PO ONE (05:00)
[2023-04-09] MEDS: BICTEGRAV/EMTRICIT/TENOFOV (BIKTARVY) 50-200-25 MG TABLET PO SCH (07:02)
[2023-04-09 09:41] VITALS: BP 146/78; PULSE 83; RESP 16; TEMP 97.2
[2023-04-09] MEDS: PRENATAL VITAMINS W/ FOLIC ACID TABLET (FP) PO SCH (10:10)
[2023-04-09] MEDS: FAMOTIDINE 20 MG TABLET PO SCH (10:10)
[2023-04-09] MEDS: FOLIC ACID 1 MG TABLET (FP) PO SCH (10:10)
== END 2023-04-09 10:10 | disposition home or self-care (01) | DRG 897 ==
LOC: YASAS 16:47 → Y6N 22:27 → Y3N 04-07 21:09 → Y6N 04-07 21:10
PROVIDERS: ADMIT Allergy & Immunology; ATTEND Surgery
PROC: HZ2ZZZZ Detoxification Services for Substance Abuse Treatment (ICD-10-PCS; principal; 2023-04-04)
DX: F10.230 Alcohol dependence with withdrawal, uncomplicated (principal); F14.20 Cocaine dependence, uncomplicated; F16.20 Hallucinogen dependence, uncomplicated; F32.9 Major depressive disorder, single episode, unspecified; Z21 Asymptomatic human immunodeficiency virus [HIV] infection status; G62.9 Polyneuropathy, unspecified; I10 Essential (primary) hypertension; K21.9 Gastro-esophageal reflux disease without esophagitis; R73.03 Prediabetes; R26.89 Other abnormalities of gait and mobility; Z99.89 Dependence on other enabling machines and devices
CPT/HCPCS: 36415; 80053; 85027; 86780; 87635; 90677

== ENCOUNTER 2023-06-07 16:20 | Inpatient (IN) | payer OTHER ==
[2023-06-07 18:50] VITALS: BMI 29.5
[2023-06-07] MEDS ORDERED: P-EPHED 60MG/TRIPROLIDI 2.5MG TABLET PO PRN (20:27)
[2023-06-07] MEDS ORDERED: BISMUTH SUBSALICYLATE 524 MG/30 ML PO PRN (20:27)
[2023-06-07] MEDS ORDERED: ACETAMINOPHEN 325 MG TABLET (FP) PO PRN (20:27)
[2023-06-07] MEDS ORDERED: BENZONATATE 200 MG CAPSULE PO PRN (20:27)
[2023-06-07] MEDS ORDERED: IBUPROFEN 400 MG TABLET (FP) PO PRN (20:27)
[2023-06-07] MEDS ORDERED: POLYETHYLENE GLYCOL (HEALTHYLAX) 3350 17 GM PACKET PO PRN (20:27)
[2023-06-07] MEDS ORDERED: BENZOCAINE/MENTHOL (CHLORASEPTIC ) LOZENGE MM PRN (20:27)
[2023-06-07] MEDS ORDERED: ONDANSETRON *ODT* 4 MG TABLET SL PRN (20:27)
[2023-06-07] MEDS ORDERED: guaiFENesin 600 MG TABLET.ER (FP) PO PRN (20:27)
[2023-06-07] MEDS ORDERED: MAGNESIUM HYDROX 2400MG/30ML ORAL SUSPENSION 30 ML CUP PO PRN (20:27)
[2023-06-07] MEDS: THIAMINE HCL 100 MG TABLET (FP) PO SCH (22:04)
[2023-06-07] MEDS: chlordiazePOXIDE HCL 25 MG CAPSULE PO SCH (22:04)
[2023-06-07] MEDS: MELATONIN 5 MG TABLETS PO SCH (22:06)
[2023-06-08] MEDS: MAG HYDROX/AL HYDROX/SIMETH 30 ML UNIT-DOSE CUP PO PRN ×2 (01:16→20:46)
[2023-06-08] MEDS: IBUPROFEN 600 MG TABLET (FP) PO PRN ×2 (02:20→09:55)
[2023-06-08] MEDS: chlordiazePOXIDE HCL 25 MG CAPSULE PO SCH ×4 (05:15→22:11)
[2023-06-08] MEDS: PRENATAL VITAMINS W/ FOLIC ACID TABLET (FP) PO SCH (09:54)
[2023-06-08] MEDS: FAMOTIDINE 20 MG TABLET PO SCH (09:54)
[2023-06-08] MEDS: BICTEGRAV/EMTRICIT/TENOFOV (BIKTARVY) 50-200-25 MG TABLET PO SCH (09:55)
[2023-06-08] MEDS: LIDOCAINE 5% TOPICAL PATCH TP SCH (09:55)
[2023-06-08] MEDS: FOLIC ACID 1 MG TABLET (FP) PO SCH (10:04)
[2023-06-08] MEDS: THIAMINE HCL 100 MG TABLET (FP) PO SCH (22:11)
[2023-06-08] MEDS: MELATONIN 5 MG TABLETS PO SCH (22:12)
[2023-06-08] MEDS: LIDOCAINE PATCH REMOVAL MC SCH (22:12)
[2023-06-08] MEDS: METHYL SALICYLATE/MENTHOL OINT 30 GM TUBE TP SCH (22:12)
[2023-06-09] MEDS: chlordiazePOXIDE HCL 25 MG CAPSULE PO SCH ×4 (05:55→23:59)
[2023-06-09] MEDS: MAG HYDROX/AL HYDROX/SIMETH 30 ML UNIT-DOSE CUP PO PRN ×3 (06:38→22:53)
[2023-06-09] MEDS: PRENATAL VITAMINS W/ FOLIC ACID TABLET (FP) PO SCH (10:15)
[2023-06-09] MEDS: METHYL SALICYLATE/MENTHOL OINT 30 GM TUBE TP SCH ×2 (10:16→22:06)
[2023-06-09] MEDS: LIDOCAINE 5% TOPICAL PATCH TP SCH (10:17)
[2023-06-09] MEDS: FOLIC ACID 1 MG TABLET (FP) PO SCH (10:17)
[2023-06-09] MEDS: BICTEGRAV/EMTRICIT/TENOFOV (BIKTARVY) 50-200-25 MG TABLET PO SCH (10:17)
[2023-06-09] MEDS: FAMOTIDINE 20 MG TABLET PO SCH (10:17)
[2023-06-09 12:25] LABS: CHLORIDE 98 mmol/L (98-107); POTASSIUM 4.8 mmol/L (3.5-5.1); SODIUM 131 mmol/L (136-145)
[2023-06-09 12:31] LABS: ALBUMIN 3.1 g/dl (3.4-5.0); CALCIUM 9.2 mg/dL (8.5-10.1)
[2023-06-09 12:32] LABS: ANION GAP 4 mmol/L (4-13); CO2 30 mmol/L (21-32); GLUCOSE,RANDOM 79 mg/dL (74-106)
[2023-06-09 12:34] LABS: SGOT/AST 18 U/L (15-37)
[2023-06-09 12:35] LABS: SGPT/ALT 14 U/L (13-61)
[2023-06-09 12:36] LABS: BILIRUBIN,TOTAL 0.3 mg/dL (0.2-1); TOT PROT 7.1 g/dl (6.4-8.2)
[2023-06-09 12:37] LABS: ALK PHOS 91 U/L (45-117); HEMATOCRIT 31.3 % (32.4-45.2); MCHC 31.9 g/dl (32.0-36.0); MEAN CELL VOLUME 81.5 fl (80-96); MEAN PLT VOLUME 7.8 fl (7.5-11.1); PLATELET COUNT 225 10^3/uL (134-434); RBC 3.84 M/mm3 (3.60-5.2); RDW 18.2 % (11.6-15.6); WHITE BLOOD COUNT 3.1 K/mm3 (4.0-10.0)
[2023-06-09] MEDS: chlordiazePOXIDE HCL 25 MG CAPSULE PO PRN ×2 (13:27→22:50)
[2023-06-09] MEDS: LIDOCAINE PATCH REMOVAL MC SCH (22:06)
[2023-06-09] MEDS: THIAMINE HCL 100 MG TABLET (FP) PO SCH (22:49)
[2023-06-09] MEDS: MELATONIN 5 MG TABLETS PO SCH (22:49)
[2023-06-10] MEDS ORDERED: chlordiazePOXIDE HCL 10 MG CAPSULE PO PRN
[2023-06-10] MEDS: chlordiazePOXIDE HCL 10 MG CAPSULE PO SCH ×4 (05:42→22:04)
[2023-06-10] MEDS: MAG HYDROX/AL HYDROX/SIMETH 30 ML UNIT-DOSE CUP PO PRN ×3 (05:43→20:06)
[2023-06-10] MEDS: LOPERAMIDE HCL 2 MG CAPSULE PO PRN ×2 (10:05→22:03)
[2023-06-10] MEDS: PRENATAL VITAMINS W/ FOLIC ACID TABLET (FP) PO SCH (10:06)
[2023-06-10] MEDS: BICTEGRAV/EMTRICIT/TENOFOV (BIKTARVY) 50-200-25 MG TABLET PO SCH (10:06)
[2023-06-10] MEDS: FAMOTIDINE 20 MG TABLET PO SCH (10:07)
[2023-06-10] MEDS: METHYL SALICYLATE/MENTHOL OINT 30 GM TUBE TP SCH ×2 (10:08→22:04)
[2023-06-10] MEDS: FOLIC ACID 1 MG TABLET (FP) PO SCH (10:08)
[2023-06-10] MEDS: LIDOCAINE 4% PATCH TP SCH (10:08)
[2023-06-10] MEDS: IBUPROFEN 600 MG TABLET (FP) PO PRN (16:31)
[2023-06-10] MEDS: MELATONIN 5 MG TABLETS PO SCH (22:03)
[2023-06-10] MEDS: THIAMINE HCL 100 MG TABLET (FP) PO SCH (22:04)
[2023-06-10] MEDS: LIDOCAINE PATCH REMOVAL MC SCH (22:05)
[2023-06-11] MEDS: MAG HYDROX/AL HYDROX/SIMETH 30 ML UNIT-DOSE CUP PO PRN ×2 (03:54→17:28)
[2023-06-11] MEDS: chlordiazePOXIDE HCL 10 MG CAPSULE PO SCH ×2 (05:35→17:25)
[2023-06-11] MEDS: IBUPROFEN 600 MG TABLET (FP) PO PRN ×2 (05:37→22:24)
[2023-06-11] MEDS: PRENATAL VITAMINS W/ FOLIC ACID TABLET (FP) PO SCH (09:02)
[2023-06-11] MEDS: FOLIC ACID 1 MG TABLET (FP) PO SCH (09:03)
[2023-06-11] MEDS: METHYL SALICYLATE/MENTHOL OINT 30 GM TUBE TP SCH ×2 (09:03→22:24)
[2023-06-11] MEDS: BICTEGRAV/EMTRICIT/TENOFOV (BIKTARVY) 50-200-25 MG TABLET PO SCH (09:03)
[2023-06-11] MEDS: LIDOCAINE 4% PATCH TP SCH (09:03)
[2023-06-11] MEDS: FAMOTIDINE 20 MG TABLET PO SCH (09:03)
[2023-06-11] MEDS: MELATONIN 5 MG TABLETS PO SCH (22:24)
[2023-06-11] MEDS: LIDOCAINE PATCH REMOVAL MC SCH (22:24)
[2023-06-11] MEDS: THIAMINE HCL 100 MG TABLET (FP) PO SCH (22:48)
[2023-06-12] MEDS ORDERED: chlordiazePOXIDE HCL 10 MG CAPSULE PO ONE (05:00)
[2023-06-12] MEDS: MAG HYDROX/AL HYDROX/SIMETH 30 ML UNIT-DOSE CUP PO PRN (05:53)
[2023-06-12] MEDS: IBUPROFEN 600 MG TABLET (FP) PO PRN (05:57)
[2023-06-12] MEDS: BICTEGRAV/EMTRICIT/TENOFOV (BIKTARVY) 50-200-25 MG TABLET PO SCH (09:22)
[2023-06-12] MEDS: METHYL SALICYLATE/MENTHOL OINT 30 GM TUBE TP SCH (09:22)
[2023-06-12] MEDS: LIDOCAINE 4% PATCH TP SCH (09:22)
[2023-06-12] MEDS: FOLIC ACID 1 MG TABLET (FP) PO SCH (09:22)
[2023-06-12] MEDS: FAMOTIDINE 20 MG TABLET PO SCH (09:22)
[2023-06-12] MEDS: PRENATAL VITAMINS W/ FOLIC ACID TABLET (FP) PO SCH (09:22)
[2023-06-12 17:09] VITALS: BP 118/76; PULSE 74; RESP 16; TEMP 98.7
== END 2023-06-12 19:40 | disposition other institution (70) | DRG 897 ==
LOC: YASAS 16:20 → Y6N 20:37
PROVIDERS: ADMIT Allergy & Immunology; ATTEND Surgery
PROC: HZ2ZZZZ Detoxification Services for Substance Abuse Treatment (ICD-10-PCS; principal; 2023-06-07)
DX: F10.230 Alcohol dependence with withdrawal, uncomplicated (principal); F14.20 Cocaine dependence, uncomplicated; F19.282 Other psychoactive substance dependence with psychoactive substance-induced sleep disorder; F19.280 Other psychoactive substance dependence with psychoactive substance-induced anxiety disorder; F16.10 Hallucinogen abuse, uncomplicated; F19.24 Other psychoactive substance dependence with psychoactive substance-induced mood disorder; F32.9 Major depressive disorder, single episode, unspecified; Z21 Asymptomatic human immunodeficiency virus [HIV] infection status; I10 Essential (primary) hypertension; K21.9 Gastro-esophageal reflux disease without esophagitis; B18.2 Chronic viral hepatitis C; M17.11 Unilateral primary osteoarthritis, right knee; M25.762 Osteophyte, left knee; M25.761 Osteophyte, right knee; Z99.89 Dependence on other enabling machines and devices
CPT/HCPCS: 36415; 80053; 80307; 85027; 86780; 87635

== ENCOUNTER 2023-07-26 13:04 | Inpatient (IN) | payer OTHER ==
[2023-07-26 13:42] VITALS: BMI 28.3
[2023-07-26] MEDS ORDERED: NALOXONE HCL (KLOXXADO) 8 MG SPRAY NS PRN (14:22)
[2023-07-26] MEDS ORDERED: BENZOCAINE/MENTHOL (CHLORASEPTIC ) LOZENGE MM PRN (14:22)
[2023-07-26] MEDS ORDERED: guaiFENesin 600 MG TABLET.ER (FP) PO PRN (14:22)
[2023-07-26] MEDS ORDERED: ONDANSETRON *ODT* 4 MG TABLET SL PRN (14:22)
[2023-07-26] MEDS ORDERED: DICYCLOMINE HCL 10 MG CAPSULE PO PRN (14:22)
[2023-07-26] MEDS ORDERED: hydrOXYzine PAMOATE 25 MG CAPSULE (FP) PO PRN (14:22)
[2023-07-26] MEDS ORDERED: POLYETHYLENE GLYCOL (HEALTHYLAX) 3350 17 GM PACKET PO PRN (14:22)
[2023-07-26] MEDS ORDERED: BENZONATATE 200 MG CAPSULE PO PRN (14:22)
[2023-07-26] MEDS ORDERED: chlordiazePOXIDE HCL 25 MG CAPSULE PO PRN (14:22)
[2023-07-26] MEDS ORDERED: ACETAMINOPHEN 325 MG TABLET (FP) PO PRN (14:22)
[2023-07-26] MEDS ORDERED: MAGNESIUM HYDROX 2400MG/30ML ORAL SUSPENSION 30 ML CUP PO PRN (14:22)
[2023-07-26] MEDS ORDERED: NALOXONE HCL 0.4 MG/ML VIAL IM PRN (14:22)
[2023-07-26] MEDS ORDERED: IBUPROFEN 400 MG TABLET (FP) PO PRN (14:22)
[2023-07-26] MEDS: PRENATAL VITAMINS W/ FOLIC ACID TABLET (FP) PO SCH (15:01)
[2023-07-26] MEDS: MAG HYDROX/AL HYDROX/SIMETH 30 ML UNIT-DOSE CUP PO PRN (15:47)
[2023-07-26] MEDS: chlordiazePOXIDE HCL 25 MG CAPSULE PO SCH ×3 (17:08→22:17)
[2023-07-26] MEDS ORDERED: MELATONIN 5 MG TABLETS PO SCH (22:00)
[2023-07-26] MEDS: THIAMINE HCL 100 MG TABLET (FP) PO SCH (22:16)
[2023-07-27] MEDS: chlordiazePOXIDE HCL 25 MG CAPSULE PO SCH ×4 (05:50→22:28)
[2023-07-27] MEDS: IBUPROFEN 600 MG TABLET (FP) PO PRN ×2 (08:38→17:09)
[2023-07-27] MEDS: NICOTINE 14 MG/24 HOURS TOPICAL PATCH TD SCH (10:28)
[2023-07-27] MEDS: PRENATAL VITAMINS W/ FOLIC ACID TABLET (FP) PO SCH (10:28)
[2023-07-27] MEDS: LIDOCAINE 4% PATCH TP SCH (10:29)
[2023-07-27] MEDS: THIAMINE HCL 100 MG TABLET (FP) PO SCH (22:28)
[2023-07-27] MEDS: LIDOCAINE PATCH REMOVAL MC SCH (22:28)
[2023-07-28] MEDS: MAG HYDROX/AL HYDROX/SIMETH 30 ML UNIT-DOSE CUP PO PRN ×3 (00:40→22:06)
[2023-07-28] MEDS: chlordiazePOXIDE HCL 25 MG CAPSULE PO SCH ×4 (05:33→22:03)
[2023-07-28] MEDS: BICTEGRAV/EMTRICIT/TENOFOV (BIKTARVY) 50-200-25 MG TABLET PO SCH (09:38)
[2023-07-28] MEDS: LIDOCAINE 4% PATCH TP SCH (09:38)
[2023-07-28] MEDS: FAMOTIDINE 20 MG TABLET PO SCH (09:38)
[2023-07-28] MEDS: PRENATAL VITAMINS W/ FOLIC ACID TABLET (FP) PO SCH (09:38)
[2023-07-28] MEDS: NICOTINE 14 MG/24 HOURS TOPICAL PATCH TD SCH (09:39)
[2023-07-28] MEDS: BISMUTH SUBSALICYLATE 262 MG/15 ML BTL PO PRN (17:46)
[2023-07-28] MEDS: THIAMINE HCL 100 MG TABLET (FP) PO SCH (22:03)
[2023-07-28] MEDS: LIDOCAINE PATCH REMOVAL MC SCH (22:03)
[2023-07-29] MEDS ORDERED: chlordiazePOXIDE HCL 10 MG CAPSULE PO PRN
[2023-07-29] MEDS: chlordiazePOXIDE HCL 10 MG CAPSULE PO SCH ×4 (05:38→22:09)
[2023-07-29] MEDS: IBUPROFEN 600 MG TABLET (FP) PO PRN (05:39)
[2023-07-29] MEDS: BICTEGRAV/EMTRICIT/TENOFOV (BIKTARVY) 50-200-25 MG TABLET PO SCH (07:30)
[2023-07-29] MEDS: LIDOCAINE 4% PATCH TP SCH (10:35)
[2023-07-29] MEDS: FAMOTIDINE 20 MG TABLET PO SCH (10:35)
[2023-07-29] MEDS: NICOTINE 14 MG/24 HOURS TOPICAL PATCH TD SCH (10:35)
[2023-07-29] MEDS: PRENATAL VITAMINS W/ FOLIC ACID TABLET (FP) PO SCH (10:35)
[2023-07-29] MEDS: LOPERAMIDE HCL 2 MG CAPSULE PO PRN (10:39)
[2023-07-29] MEDS ORDERED: METHYL SALICYLATE/MENTHOL OINT 30 GM TUBE TP PRN (11:48)
[2023-07-29] MEDS ORDERED: METHOCARBAMOL 500 MG TABLET PO PRN (12:28)
[2023-07-29] MEDS ORDERED: BACLOFEN 10 MG TABLET (FP) PO PRN (12:52)
[2023-07-29] MEDS: MAG HYDROX/AL HYDROX/SIMETH 30 ML UNIT-DOSE CUP PO PRN ×2 (16:58→22:09)
[2023-07-29] MEDS ORDERED: BACLOFEN 10 MG TABLET (FP) PO SCH (22:00)
[2023-07-29] MEDS: LIDOCAINE PATCH REMOVAL MC SCH (22:10)
[2023-07-29] MEDS: THIAMINE HCL 100 MG TABLET (FP) PO SCH (22:10)
[2023-07-30] MEDS: chlordiazePOXIDE HCL 10 MG CAPSULE PO SCH ×2 (05:23→17:53)
[2023-07-30] MEDS: IBUPROFEN 600 MG TABLET (FP) PO PRN (05:23)
[2023-07-30] MEDS: MAG HYDROX/AL HYDROX/SIMETH 30 ML UNIT-DOSE CUP PO PRN ×2 (05:27→22:30)
[2023-07-30] MEDS: BICTEGRAV/EMTRICIT/TENOFOV (BIKTARVY) 50-200-25 MG TABLET PO SCH (07:26)
[2023-07-30] MEDS: NICOTINE 14 MG/24 HOURS TOPICAL PATCH TD SCH (10:17)
[2023-07-30] MEDS: LIDOCAINE 4% PATCH TP SCH (10:19)
[2023-07-30] MEDS: FAMOTIDINE 20 MG TABLET PO SCH (10:20)
[2023-07-30] MEDS: PRENATAL VITAMINS W/ FOLIC ACID TABLET (FP) PO SCH (10:20)
[2023-07-30] MEDS: LOPERAMIDE HCL 2 MG CAPSULE PO PRN (10:48)
[2023-07-30] MEDS: BISMUTH SUBSALICYLATE 262 MG/15 ML BTL PO PRN (17:56)
[2023-07-30] MEDS ORDERED: SUVOREXANT 10 MG TABLET PO PRN (22:00)
[2023-07-30] MEDS: THIAMINE HCL 100 MG TABLET (FP) PO SCH (22:26)
[2023-07-30] MEDS: LIDOCAINE PATCH REMOVAL MC SCH (22:27)
[2023-07-31] MEDS ORDERED: chlordiazePOXIDE HCL 10 MG CAPSULE PO ONE (05:00)
[2023-07-31] MEDS: BICTEGRAV/EMTRICIT/TENOFOV (BIKTARVY) 50-200-25 MG TABLET PO SCH (07:22)
[2023-07-31 07:26] VITALS: RESP 16
[2023-07-31 09:28] VITALS: BP 104/74; PULSE 102; TEMP 97.1
[2023-07-31] MEDS: NICOTINE 14 MG/24 HOURS TOPICAL PATCH TD SCH (10:51)
[2023-07-31] MEDS: PRENATAL VITAMINS W/ FOLIC ACID TABLET (FP) PO SCH (10:52)
[2023-07-31] MEDS: FAMOTIDINE 20 MG TABLET PO SCH (10:53)
[2023-07-31] MEDS: LOPERAMIDE HCL 2 MG CAPSULE PO PRN (10:53)
[2023-07-31] MEDS: LIDOCAINE 4% PATCH TP SCH (10:54)
== END 2023-07-31 11:23 | disposition home or self-care (01) | DRG 897 ==
LOC: YASAS 13:04 → Y6N 15:08
PROVIDERS: ADMIT Allergy & Immunology; ATTEND Surgery
PROC: HZ2ZZZZ Detoxification Services for Substance Abuse Treatment (ICD-10-PCS; principal; 2023-07-26)
DX: F10.230 Alcohol dependence with withdrawal, uncomplicated (principal); F14.20 Cocaine dependence, uncomplicated; F16.20 Hallucinogen dependence, uncomplicated; F33.9 Major depressive disorder, recurrent, unspecified; F19.982 Other psychoactive substance use, unspecified with psychoactive substance-induced sleep disorder; F19.980 Other psychoactive substance use, unspecified with psychoactive substance-induced anxiety disorder; I10 Essential (primary) hypertension; E78.5 Hyperlipidemia, unspecified; R73.03 Prediabetes; Z21 Asymptomatic human immunodeficiency virus [HIV] infection status; B18.2 Chronic viral hepatitis C; G62.9 Polyneuropathy, unspecified; M19.90 Unspecified osteoarthritis, unspecified site; Z99.89 Dependence on other enabling machines and devices; Z56.0 Unemployment, unspecified; Z91.148 Patient's other noncompliance with medication regimen for other reason
CPT/HCPCS: 87635; 87811; J0475

== ENCOUNTER 2023-09-12 20:50 | Inpatient (IN) | payer OTHER ==
[2023-09-12 21:24] VITALS: BMI 28.7
[2023-09-12] MEDS ORDERED: ACETAMINOPHEN 325 MG TABLET (FP) PO PRN (21:49)
[2023-09-12] MEDS ORDERED: LOPERAMIDE HCL 2 MG CAPSULE PO PRN (21:49)
[2023-09-12] MEDS ORDERED: BENZOCAINE/MENTHOL (CHLORASEPTIC ) LOZENGE MM PRN (21:49)
[2023-09-12] MEDS ORDERED: ONDANSETRON *ODT* 4 MG TABLET SL PRN (21:49)
[2023-09-12] MEDS ORDERED: P-EPHED 60MG/TRIPROLIDI 2.5MG TABLET PO PRN (21:49)
[2023-09-12] MEDS ORDERED: POLYETHYLENE GLYCOL (HEALTHYLAX) 3350 17 GM PACKET PO PRN (21:49)
[2023-09-12] MEDS ORDERED: IBUPROFEN 400 MG TABLET (FP) PO PRN (21:49)
[2023-09-12] MEDS ORDERED: BISMUTH SUBSALICYLATE 524 MG/30 ML PO PRN (21:49)
[2023-09-12] MEDS ORDERED: BENZONATATE 200 MG CAPSULE PO PRN (21:49)
[2023-09-12] MEDS ORDERED: guaiFENesin 600 MG TABLET.ER (FP) PO PRN (21:49)
[2023-09-12] MEDS ORDERED: MAGNESIUM HYDROX 2400MG/30ML ORAL SUSPENSION 30 ML CUP PO PRN (21:49)
[2023-09-12] MEDS ORDERED: chlordiazePOXIDE HCL 25 MG CAPSULE PO PRN (21:51)
[2023-09-12] MEDS ORDERED: guaiFENesin 200 MG/10 ML 10 ML UNIT-DOSE CUPS PO PRN (21:59)
[2023-09-12] MEDS: chlordiazePOXIDE HCL 25 MG CAPSULE PO SCH (23:05)
[2023-09-12] MEDS: THIAMINE HCL 100 MG TABLET (FP) PO SCH (23:06)
[2023-09-12] MEDS: MELATONIN 5 MG TABLETS PO PRN (23:06)
[2023-09-13] MEDS: chlordiazePOXIDE HCL 25 MG CAPSULE PO SCH ×4 (05:31→22:18)
[2023-09-13] MEDS ORDERED: BICTEGRAV/EMTRICIT/TENOFOV (BIKTARVY) 50-200-25 MG TABLET PO SCH (10:00)
[2023-09-13] MEDS: FAMOTIDINE 20 MG TABLET PO SCH (10:39)
[2023-09-13] MEDS: PRENATAL VITAMINS W/ FOLIC ACID TABLET (FP) PO SCH (10:39)
[2023-09-13] MEDS ORDERED: chlordiazePOXIDE 5 MG CAPSULE PO PRN (13:40)
[2023-09-13 13:57] LABS: POTASSIUM 4.2 mmol/L (3.5-5.1)
[2023-09-13 13:59] LABS: ALBUMIN 2.9 g/dl (3.4-5.0); CALCIUM 8.7 mg/dL (8.5-10.1)
[2023-09-13 14:02] LABS: BLOOD UREA NITROGEN 28.5 mg/dL (7-18); CREATININE 1.3 mg/dL (0.55-1.3)
[2023-09-13 14:04] LABS: BILIRUBIN,TOTAL 0.3 mg/dL (0.2-1); TOT PROT 6.3 g/dl (6.4-8.2)
[2023-09-13 14:07] LABS: HEMATOCRIT 29.8 % (32.4-45.2); HEMOGLOBIN 9.6 GM/dL (10.7-15.3); MCH 27.7 pg (25.7-33.7); MCHC 32.3 g/dl (32.0-36.0); MEAN CELL VOLUME 85.7 fl (80-96); MEAN PLT VOLUME 8.1 fl (7.5-11.1); PLATELET COUNT 212 10^3/uL (134-434); RBC 3.48 M/mm3 (3.60-5.2)
[2023-09-13] MEDS: THIAMINE HCL 100 MG TABLET (FP) PO SCH (22:03)
[2023-09-13] MEDS: MELATONIN 5 MG TABLETS PO PRN (22:03)
[2023-09-13] MEDS: MAG HYDROX/AL HYDROX/SIMETH 30 ML UNIT-DOSE CUP PO PRN (22:07)
[2023-09-13] MEDS: traZODone HCL 50 MG TABLET (FP) PO SCH (22:15)
[2023-09-14] MEDS ORDERED: chlordiazePOXIDE HCL 25 MG CAPSULE PO SCH (05:00)
[2023-09-14] MEDS: chlordiazePOXIDE HCL 10 MG CAPSULE PO SCH ×4 (05:37→22:16)
[2023-09-14] MEDS: BICTEGRAV/EMTRICIT/TENOFOV (BIKTARVY) 50-200-25 MG TABLET PO SCH (07:24)
[2023-09-14] MEDS: FAMOTIDINE 20 MG TABLET PO SCH (10:24)
[2023-09-14] MEDS: PRENATAL VITAMINS W/ FOLIC ACID TABLET (FP) PO SCH (10:24)
[2023-09-14] MEDS: MAG HYDROX/AL HYDROX/SIMETH 30 ML UNIT-DOSE CUP PO PRN (17:40)
[2023-09-14] MEDS: THIAMINE HCL 100 MG TABLET (FP) PO SCH (22:15)
[2023-09-14] MEDS: MELATONIN 5 MG TABLETS PO PRN (22:15)
[2023-09-14] MEDS: traZODone HCL 50 MG TABLET (FP) PO SCH (22:15)
[2023-09-14] MEDS ORDERED: PANTOPRAZOLE 20 MG TABLET PO ONE (23:14)
[2023-09-15] MEDS ORDERED: chlordiazePOXIDE HCL 10 MG CAPSULE PO PRN
[2023-09-15] MEDS: chlordiazePOXIDE HCL 10 MG CAPSULE PO SCH ×2 (05:21→10:32)
[2023-09-15] MEDS: BICTEGRAV/EMTRICIT/TENOFOV (BIKTARVY) 50-200-25 MG TABLET PO SCH (08:04)
[2023-09-15 09:45] VITALS: RESP 18
[2023-09-15] MEDS ORDERED: chlordiazePOXIDE 5 MG CAPSULE PO PRN (10:01)
[2023-09-15] MEDS: FAMOTIDINE 20 MG TABLET PO SCH (10:24)
[2023-09-15] MEDS: PRENATAL VITAMINS W/ FOLIC ACID TABLET (FP) PO SCH (10:24)
[2023-09-15 13:05] VITALS: BP 90/66; PULSE 108; TEMP 97.3
[2023-09-16] MEDS ORDERED: chlordiazePOXIDE HCL 10 MG CAPSULE PO SCH (05:00)
[2023-09-17] MEDS ORDERED: chlordiazePOXIDE HCL 10 MG CAPSULE PO ONE (05:00)
== END 2023-09-15 14:32 | disposition home or self-care (01) | DRG 897 ==
LOC: YASAS 20:50 → Y6N 22:16
PROVIDERS: ADMIT Allergy & Immunology; ATTEND Allergy & Immunology
PROC: HZ2ZZZZ Detoxification Services for Substance Abuse Treatment (ICD-10-PCS; principal; 2023-09-12)
DX: F10.230 Alcohol dependence with withdrawal, uncomplicated (principal); F14.20 Cocaine dependence, uncomplicated; F19.282 Other psychoactive substance dependence with psychoactive substance-induced sleep disorder; F32.9 Major depressive disorder, single episode, unspecified; Z21 Asymptomatic human immunodeficiency virus [HIV] infection status; G62.9 Polyneuropathy, unspecified; D64.9 Anemia, unspecified; D72.819 Decreased white blood cell count, unspecified; I10 Essential (primary) hypertension; K21.9 Gastro-esophageal reflux disease without esophagitis; R73.03 Prediabetes; Z99.89 Dependence on other enabling machines and devices
CPT/HCPCS: 0241U-QW; 36415; 80053; 85027; 87811

== ENCOUNTER 2023-11-09 15:40 | Inpatient (IN) | payer OTHER ==
[2023-11-09 16:39] VITALS: BMI 29.6
[2023-11-09] MEDS ORDERED: NALOXONE HCL 0.4 MG/ML VIAL IM PRN (19:53)
[2023-11-09] MEDS ORDERED: BENZONATATE 200 MG CAPSULE PO PRN (19:53)
[2023-11-09] MEDS ORDERED: METHOCARBAMOL 500 MG TABLET PO PRN (19:53)
[2023-11-09] MEDS ORDERED: IBUPROFEN 400 MG TABLET (FP) PO PRN (19:53)
[2023-11-09] MEDS ORDERED: ACETAMINOPHEN 325 MG TABLET (FP) PO PRN (19:53)
[2023-11-09] MEDS ORDERED: guaiFENesin 600 MG TABLET.ER (FP) PO PRN (19:53)
[2023-11-09] MEDS ORDERED: NALOXONE HCL (KLOXXADO) 8 MG SPRAY NS PRN (19:53)
[2023-11-09] MEDS ORDERED: LOPERAMIDE HCL 2 MG CAPSULE PO PRN (19:53)
[2023-11-09] MEDS ORDERED: MAGNESIUM HYDROX 2400MG/30ML ORAL SUSPENSION 30 ML CUP PO PRN (19:53)
[2023-11-09] MEDS ORDERED: POLYETHYLENE GLYCOL (HEALTHYLAX) 3350 17 GM PACKET PO PRN (19:53)
[2023-11-09] MEDS ORDERED: BENZOCAINE/MENTHOL (CHLORASEPTIC ) LOZENGE MM PRN (19:53)
[2023-11-09] MEDS: THIAMINE 100 MG TABLET PO SCH (21:10)
[2023-11-09] MEDS: MELATONIN 5 MG TABLETS PO SCH (21:10)
[2023-11-09] MEDS: IBUPROFEN 600 MG TABLET (FP) PO PRN (21:11)
[2023-11-10] MEDS: INSULIN ASPART SLIDING SCALE (NOVOLOG) 1 VIAL SQ SCH (07:30)
[2023-11-10] MEDS: MAG HYDROX/AL HYDROX/SIMETH 30 ML UNIT-DOSE CUP PO PRN (08:56)
[2023-11-10] MEDS: PRENATAL VITAMINS W/ FOLIC ACID TABLET (FP) PO SCH (09:45)
[2023-11-10] MEDS: FAMOTIDINE 20 MG TABLET PO SCH (10:46)
[2023-11-10] MEDS: BICTEGRAV/EMTRICIT/TENOFOV (BIKTARVY) 50-200-25 MG TABLET PO SCH (10:46)
[2023-11-10] MEDS: chlordiazePOXIDE HCL 25 MG CAPSULE PO SCH (10:47)
[2023-11-10] MEDS: FLU VACCINE (FLULAVAL) PF 60 MCG/0.5 ML SYRINGE 2023-2024 IM ONE (11:27)
[2023-11-10 11:51] LABS: HEMATOCRIT 33.2 % (32.4-45.2); HEMOGLOBIN 10.7 GM/dL (10.7-15.3); MCH 28.7 pg (25.7-33.7); MCHC 32.1 g/dl (32.0-36.0); MEAN CELL VOLUME 89.2 fl (80-96); MEAN PLT VOLUME 8.5 fl (7.5-11.1); PLATELET COUNT 239 10^3/uL (134-434); RBC 3.72 M/mm3 (3.60-5.2); RDW 19.2 % (11.6-15.6); WHITE BLOOD COUNT 2.7 K/mm3 (4.0-10.0)
[2023-11-10 11:58] LABS: CHLORIDE 99 mmol/L (98-107); POTASSIUM 4.3 mmol/L (3.5-5.1); SODIUM 135 mmol/L (136-145)
[2023-11-10 12:02] LABS: CALCIUM 9.3 mg/dL (8.5-10.1)
[2023-11-10 12:03] LABS: ALBUMIN 2.8 g/dl (3.4-5.0); ANION GAP 7 mmol/L (4-13); BLOOD UREA NITROGEN 21.3 mg/dL (7-18); CO2 29 mmol/L (21-32)
[2023-11-10 12:05] LABS: GLUCOSE,RANDOM 57 mg/dL (74-106)
[2023-11-10 12:07] LABS: BILIRUBIN,TOTAL 0.4 mg/dL (0.2-1)
[2023-11-10 12:08] LABS: SGPT/ALT 22 U/L (13-61)
[2023-11-10 12:09] LABS: ALK PHOS 118 U/L (45-117); CREATININE 1.2 mg/dL (0.55-1.3); SGOT/AST 37 U/L (15-37)
[2023-11-10 12:10] LABS: TOT PROT 6.9 g/dl (6.4-8.2)
[2023-11-10] MEDS: BISMUTH SUBSALICYLATE 524 MG/30 ML PO PRN (22:47)
[2023-11-11] MEDS: chlordiazePOXIDE HCL 25 MG CAPSULE PO PRN (14:35)
[2023-11-12] MEDS: chlordiazePOXIDE HCL 25 MG CAPSULE PO SCH (05:47)
[2023-11-12] MEDS ORDERED: INSULIN ASPART SLIDING SCALE (NOVOLOG) 1 VIAL SQ ONE (11:46)
[2023-11-13] MEDS ORDERED: chlordiazePOXIDE HCL 10 MG CAPSULE PO PRN
[2023-11-13] MEDS: chlordiazePOXIDE HCL 10 MG CAPSULE PO SCH (05:36)
[2023-11-13] MEDS: ONDANSETRON *ODT* 4 MG TABLET SL PRN (18:39)
[2023-11-13] MEDS: traZODone HCL 50 MG TABLET (FP) PO PRN (22:21)
[2023-11-13] MEDS: SIMETHICONE 80 MG TAB.CHEW (FP) PO PRN (22:22)
[2023-11-14] MEDS: chlordiazePOXIDE HCL 10 MG CAPSULE PO SCH (06:00)
[2023-11-14 09:20] VITALS: BP 124/70; PULSE 79; RESP 18; TEMP 98.2
[2023-11-15] MEDS ORDERED: chlordiazePOXIDE HCL 10 MG CAPSULE PO ONE (05:00)
== END 2023-11-14 09:47 | disposition home or self-care (01) | DRG 897 ==
LOC: YASAS 15:40 → Y3N 20:38
PROVIDERS: ADMIT Allergy & Immunology; ATTEND Surgery
PROC: HZ2ZZZZ Detoxification Services for Substance Abuse Treatment (ICD-10-PCS; principal; 2023-11-09)
DX: F10.230 Alcohol dependence with withdrawal, uncomplicated (principal); F14.20 Cocaine dependence, uncomplicated; F16.20 Hallucinogen dependence, uncomplicated; F19.282 Other psychoactive substance dependence with psychoactive substance-induced sleep disorder; Z59.02 Unsheltered homelessness; F17.210 Nicotine dependence, cigarettes, uncomplicated; F32.A Depression, unspecified; Z21 Asymptomatic human immunodeficiency virus [HIV] infection status; G47.00 Insomnia, unspecified; I10 Essential (primary) hypertension; E78.5 Hyperlipidemia, unspecified; K21.9 Gastro-esophageal reflux disease without esophagitis; M54.50 Low back pain, unspecified; G89.29 Other chronic pain; R73.03 Prediabetes; Z99.89 Dependence on other enabling machines and devices
CPT/HCPCS: 36415; 80053; 80305; 80307; 82962; 85027; 86780; 90686; 93005; 93010; G0008; Q0162

== ENCOUNTER 2024-01-10 13:18 | Inpatient (IN) | payer OTHER ==
[2024-01-10] MEDS ORDERED: MAGNESIUM HYDROX 2400MG/30ML ORAL SUSPENSION 30 ML CUP PO PRN (17:40)
[2024-01-10] MEDS ORDERED: POLYETHYLENE GLYCOL (HEALTHYLAX) 3350 17 GM PACKET PO PRN (17:40)
[2024-01-10] MEDS ORDERED: ACETAMINOPHEN 325 MG TABLET (FP) PO PRN (17:40)
[2024-01-10] MEDS ORDERED: guaiFENesin 600 MG TABLET.ER (FP) PO PRN (17:40)
[2024-01-10] MEDS ORDERED: BENZONATATE 200 MG CAPSULE PO PRN (17:40)
[2024-01-10] MEDS ORDERED: BISMUTH SUBSALICYLATE 524 MG/30 ML PO PRN (17:40)
[2024-01-10] MEDS ORDERED: ONDANSETRON *ODT* 4 MG TABLET SL PRN (17:40)
[2024-01-10] MEDS ORDERED: BENZOCAINE/MENTHOL (CHLORASEPTIC ) LOZENGE MM PRN (17:40)
[2024-01-10] MEDS ORDERED: LOPERAMIDE HCL 2 MG CAPSULE PO PRN (17:40)
[2024-01-10] MEDS ORDERED: P-EPHED 60MG/TRIPROLIDI 2.5MG TABLET PO PRN (17:40)
[2024-01-10 18:23] VITALS: BMI 28.1
[2024-01-10] MEDS: MELATONIN 5 MG TABLETS PO SCH (22:24)
[2024-01-10] MEDS: THIAMINE 100 MG TABLET PO SCH (22:25)
[2024-01-10] MEDS: IBUPROFEN 600 MG TABLET (FP) PO PRN (22:26)
[2024-01-11] MEDS: PRENATAL VITAMINS W/ FOLIC ACID TABLET (FP) PO SCH (09:06)
[2024-01-11] MEDS: BICTEGRAV/EMTRICIT/TENOFOV (BIKTARVY) 50-200-25 MG TABLET PO SCH (09:06)
[2024-01-11] MEDS: FAMOTIDINE 20 MG TABLET PO SCH (09:06)
[2024-01-11] MEDS ORDERED: LORazepam 1 MG TABLET PO PRN (09:50)
[2024-01-11] MEDS: LORazepam 1 MG TABLET PO SCH (10:26)
[2024-01-11 11:55] LABS: CHLORIDE 102 mmol/L (98-107); POTASSIUM 5.5 mmol/L (3.5-5.1); SODIUM 132 mmol/L (136-145)
[2024-01-11 11:57] LABS: CALCIUM 9.6 mg/dL (8.5-10.1)
[2024-01-11 11:58] LABS: ALBUMIN 3.2 g/dl (3.4-5.0); ANION GAP 7 mmol/L (4-13); BLOOD UREA NITROGEN 26.4 mg/dL (7-18); CO2 23 mmol/L (21-32); GLUCOSE,RANDOM 78 mg/dL (74-106)
[2024-01-11 11:59] LABS: SGPT/ALT 16 U/L (13-61)
[2024-01-11 12:01] LABS: CREATININE 0.9 mg/dL (0.55-1.3); SGOT/AST 25 U/L (15-37)
[2024-01-11 12:02] LABS: BILIRUBIN,TOTAL 0.4 mg/dL (0.2-1)
[2024-01-11 12:04] LABS: ALK PHOS 111 U/L (45-117)
[2024-01-11] MEDS: MAG HYDROX/AL HYDROX/SIMETH 30 ML UNIT-DOSE CUP PO PRN (17:20)
[2024-01-11] MEDS: traZODone HCL 50 MG TABLET (FP) PO SCH (22:44)
[2024-01-12] MEDS: LORazepam 0.5 MG TABLET PO SCH (05:46)
[2024-01-12] MEDS ORDERED: cloNIDine HCL 0.1 MG TABLET PO PRN (10:25)
[2024-01-12] MEDS: IBUPROFEN 400 MG TABLET (FP) PO PRN (22:32)
[2024-01-13] MEDS: LORazepam 0.5 MG TABLET PO ONE (05:26)
[2024-01-13] MEDS: guaiFENesin 200 MG/10 ML 10 ML UNIT-DOSE CUPS PO PRN (05:29)
[2024-01-13 05:43] VITALS: BP 91/57; PULSE 71; RESP 16; TEMP 97.1
[2024-01-13 11:54] LABS: HEMATOCRIT 32.7 % (32.4-45.2); MCH 29.7 pg (25.7-33.7); MCHC 33.5 g/dl (32.0-36.0); MEAN CELL VOLUME 88.7 fl (80-96); PLATELET COUNT 214 10^3/uL (134-434); RBC 3.69 M/mm3 (3.60-5.2); RDW 16.2 % (11.6-15.6); WHITE BLOOD COUNT 3.2 K/mm3 (4.0-10.0)
== END 2024-01-13 09:43 | disposition home or self-care (01) | DRG 897 ==
LOC: YASAS 13:18 → Y6N 18:14
PROVIDERS: ADMIT Allergy & Immunology; ATTEND Surgery
PROC: HZ2ZZZZ Detoxification Services for Substance Abuse Treatment (ICD-10-PCS; principal; 2024-01-10)
DX: F10.230 Alcohol dependence with withdrawal, uncomplicated (principal); F14.20 Cocaine dependence, uncomplicated; F16.20 Hallucinogen dependence, uncomplicated; F19.282 Other psychoactive substance dependence with psychoactive substance-induced sleep disorder; Z59.01 Sheltered homelessness; F19.24 Other psychoactive substance dependence with psychoactive substance-induced mood disorder; F32.9 Major depressive disorder, single episode, unspecified; Z21 Asymptomatic human immunodeficiency virus [HIV] infection status; I10 Essential (primary) hypertension; K21.9 Gastro-esophageal reflux disease without esophagitis; M54.50 Low back pain, unspecified; G89.29 Other chronic pain; R73.03 Prediabetes; Z79.899 Other long term (current) drug therapy; Z86.19 Personal history of other infectious and parasitic diseases
CPT/HCPCS: 36415; 80053; 80305; 80307; 84132; 84295; 85027